=== PATIENT | female | born 1940 | race Caucasian/White ===

== ENCOUNTER 2016-04-27 21:09 | Emergency (ER) | payer OTHER ==
[~2016-04-27] VITALS: Ht 165.1 cm; Wt 88.5 kg
[~2016-04-27 21:09] MED LIST: BALANCE; BARLEY LIFE PO; CLX20 PO; DILT-113 PO; GYMNPOW PO; HYDC25 PO; HYDR-5688 PO; IBUP200C14 PO; LORA-741 PO; MULT-506 PO; NXM/40 PO; POTA10CA28 PO; PRMVC PV; PSYLLIUM PO; SIMV10TA2 PO; SNK PO; SOYBGRA9 PO; [UNRECOGNIZED DRUG - CODE] PO; [UNRECOGNIZED DRUG - OTHER]; [UNRECOGNIZED DRUG - OTHER] PO; [UNRECOGNIZED DRUG - OTHER] PO; [UNRECOGNIZED DRUG - OTHER] PO; [UNRECOGNIZED DRUG - OTHER] PO; [UNRECOGNIZED DRUG - OTHER] PO; [UNRECOGNIZED DRUG - OTHER] PO; [UNRECOGNIZED DRUG - OTHER] PO; [UNRECOGNIZED DRUG - OTHER] PO; [UNRECOGNIZED DRUG - OTHER] PO; [UNRECOGNIZED DRUG - OTHER] PO; [UNRECOGNIZED DRUG - OTHER] PO; [UNRECOGNIZED DRUG - OTHER] PO
[2016-04-27] MEDS ORDERED: ACETAMINOPHEN 500 MG TAB PO ONE (21:26)
[2016-04-27 21:28] VITALS: Ht 165.1 cm; Wt 88.5 kg
[2016-04-27] MEDS ORDERED: IBUPROFEN 800 MG TAB PO STA (22:21)
[2016-04-27] MEDS ORDERED: ALBUT/IPRATROP 3MG/0.5MG NEB 3 ML VIAL INH STA (22:25)
[2016-04-27] MEDS ORDERED: SODIUM CHLORIDE 0.9% 500ML 500 ML IV STA (22:25)
[2016-04-27] MEDS ORDERED: SODIUM CHLORIDE 0.9% 1000ML 1,000 ML IV STA (22:25)
[2016-04-27] MEDS ORDERED: IBUPROFEN 600 MG TAB ONE (22:27)
[2016-04-27] MEDS ORDERED: IBUPROFEN 200 MG TAB ONE (22:27)
--- NOTE | 2016-04-27 22:37 | DIAGNOSTIC IMAGING REPORT ---
CHEST ONE VIEW PORTABLE CLINICAL HISTORY: Sepsis CHEST AND BACK PAIN. FEVER. COMPARISON STUDY: 12/07/2015 FINDINGS: There is mild elevation right hemidiaphragm. The cardiac and mediastinal contours remain stable. There is interstitial thickening similar to the prior study. There is no lobar consolidation. There are no pleural effusions.[ IMPRESSION: Relatively stable interstitial thickening. No evidence of lobar consolidation. Mild elevation of the right hemidiaphragm. Electronically signed by: Art Obregon M.D. 04/27/2016 10:35 PM Dictated Date/Time: 04/27/2016 10:35 PM
[2016-04-27 22:48] LABS: BASO % 0.3 %; BASO ABS # 0.02 K/uL (0-0.2); COMPLETE YES; EOS % 1.2 %; HEMATOCRIT 38.6 % (37-47); IG% 0.3 %; LYMPH % 14.4 %; LYMPH ABS # 0.83 K/uL (1.2-3.4); MEAN CELL VOLUME 83.4 fL (80-100); MEAN CORPUSCULAR HEMOGLOBIN 28.5 pg (25-34); MEAN CORPUSCULAR HGB CONC 34.2 g/dl (32-36); MEAN PLATELET VOLUME 8.4 fL (7.4-10.4); MONO % 8.5 %; NEUT % 75.3 %; PLATELET COUNT 194 K/uL (130-400); RED BLOOD COUNT 4.63 M/uL (4.2-5.4); WHITE BLOOD COUNT 5.78 K/uL (4.8-10.8)
[2016-04-27 22:57] LABS: INR 1.2 (0.9-1.1); PROTHROMBIN TIME (PATIENT) 12.7 SECONDS (9.0-12.0)
[2016-04-27 23:06] LABS: ALT/SGPT 28 U/L (12-78); BLOOD UREA NITROGEN 14 mg/dl (7-18); BUN/CREATININE RATIO 20.7 (10-20); CALCIUM 8.4 mg/dl (8.5-10.1); CARBON DIOXIDE 25 mmol/L (21-32); CHLORIDE 100 mmol/L (98-107); CREATININE 0.67 mg/dl (0.60-1.20); GLUCOSE 90 mg/dl (70-99); MAGNESIUM 1.9 mg/dl (1.8-2.4); POTASSIUM 3.3 mmol/L (3.5-5.1); SODIUM 136 mmol/L (136-145)
[2016-04-27] MEDS ORDERED: POTASSIUM CHLORIDE 10 MEQ TABCR PO STA (23:10)
[2016-04-27 23:11] LABS: ALKALINE PHOSPHATASE 82 U/L (45-117); AST/SGOT 28 U/L (15-37)
[2016-04-27] MEDS ORDERED: CITA20TA9 PO (23:12)
[2016-04-27] MEDS ORDERED: HYDR25TA4 PO (23:14)
[2016-04-27] MEDS ORDERED: HYDR-5688 PO (23:16)
[2016-04-27] MEDS ORDERED: SENN-61 PO ×2 (23:17→23:18)
[2016-04-27] MEDS ORDERED: VERA120T15 PO (23:19)
[2016-04-27] MEDS ORDERED: BUSP15TA70 PO (23:20)
[2016-04-27 23:35] VITALS: TEMP 37.8
[2016-04-27 23:44] VITALS: O2SAT 94
--- NOTE | 2016-04-28 00:27 | EMERGENCY ROOM VISIT NOTE ---
ED Visit Note First contact with patient: 22:18 Patient was seen by our PA/TEAM PHYSICIAN. I was involved in the patient's care and did evaluate the patient myself. I was involved in the care throughout the ER stay. The patient presents with a flulike illness. She was febrile upon arrival. Chest x-ray does not show pneumonia. The patient is not hypoxic. Laboratory testing is pending, I suspect the patient will be discharged home if she continues to do well and her laboratory testing is reassuring.
[2016-04-28 00:47] LABS: URINE APPEARANCE CLOUDY (CLEAR); URINE BILIRUBIN NEG (NEG); URINE COLOR YELLOW; URINE EPITHELIAL CELL AUTO >30 /lpf (0-5); URINE NITRITE NEG (NEG); URINE SPECIFIC GRAVITY 1.028 (1.000-1.030); UROBILINOGEN NEG (NEG); ZZUR CULT IF INDIC CLEAN CATCH YES
[2016-04-28 00:49] LABS: MANUAL MICROSCOPIC REQUIRED? NO; REVIEW REQ? NO
[2016-04-28 02:17] LABS: INFLUENZA B PCR Neg for Influ B (NEG)
[2016-04-28 02:19] LABS: INFLUENZA A PCR POS for Influ A (NEG)
[2016-04-28] MEDS ORDERED: OSELTAMIVIR PHOSPHATE 75 MG CAP PO STA (02:31)
[2016-04-28] MEDS ORDERED: ALBUTEROL HFA 8 GM INHALER INH STA (02:31)
[2016-04-28] MEDS ORDERED: OSEL75CA12 PO (02:32)
[2016-04-28 02:50] VITALS: BP 114/64; PULSE 72; O2SAT 96
--- NOTE | 2016-04-28 06:30 | EMERGENCY ROOM VISIT NOTE ---
History First contact with patient: 22:18 Chief Complaint: FLU LIKE SX Stated Complaint: PAIN IN CHEST AND BACK, FEVER 103 History of Present Illness The patient is a 75 year old female who presents to the Emergency Room with complaints of cough, congestion, myalgias, arthralgias with fever and chills for the past day. Patient states she's been feeling sick for one day. No prior heart disease. No history of blood clots. She follows with Dr. Spence for her mitral valve prolapse. Patient states 20 years ago she received treatment for TB and has been clear since. Patient denies abdominal pain, neck stiffness, sore throat, earache, vomiting, diarrhea, leg pain or swelling. Patient had some mild chest discomfort with coughing. Review of Systems See HPI for pertinent positives & negatives. A total of 10 systems reviewed and were otherwise negative. Past Medical/Surgical History Surgical Problems: (1) History of knee replacement Anxiety, depression, hyperlipidemia, hypertension, mitral valve prolapse, sleep apnea, GERD, hysterectomy, tuberculosis Family History No pertinent family history Social History Smoking Status: Never Smoker Drug Use: none Marital Status: Housing Status: lives with family Occupation Status: employed Current/Historical Medications Scheduled Citalopram Hydrobromide (Celexa), 20 MG PO DAILY Esomeprazole Magnesium (Nexium), 40 MG PO DAILY Estrogens, Conjugated (Premarin), 0.625 MG PV UD Hydrochlorothiazide (Hctz), 25 MG PO DAILY Ibuprofen (Advil), 600 MG PO BID Multivitamin (Multivitamin), 1 TAB PO DAILY Oseltamivir (Tamiflu), 75 MG PO BID Potassium Chloride (Micro-K Ext Rel), 1 TAB PO 3XWK Senna (Senokot), 1 TAB PO DAILY Simvastatin (Zocor), 1 TAB PO HS Verapamil (Calan), 120 MG PO DAILY Scheduled PRN Buspirone Hcl (Buspar), 5 MG PO BID PRN for anxiety Hydrocodone/Acetaminophen 5MG/325MG ([place] 5MG/325MG), 1-2 TABLETS PO Q4 PRN for Pain Lorazepam (Ativan), 0.5 MG PO PRN PRN Allergies Coded Allergies: Amoxicillin (Unverified Allergy, Unknown, HIVES, 04/27/16) pt got hives with Amoxicillin and Dispermox Rifampin (Unverified Allergy, Unknown, HIVES, 04/27/16) Physical Exam Vital Signs Date Time Temp Pulse Resp B/P Pulse Ox O2 Delivery O2 Flow Rate FiO2 04/28/16 02:50 72 20 114/64 96 04/28/16 01:20 80 20 125/66 97 Room Air 04/27/16 23:44 94 Nasal Cannula 2.0 04/27/16 23:35 37.8 90 20 131/67 90 Room Air 04/27/16 22:20 87 04/27/16 22:20 92 Room Air 04/27/16 22:16 90 20 138/78 93 Room Air 04/27/16 21:28 39.0 107 20 147/77 93 Room Air Physical Exam VITALS: Vitals are noted on the nurse's note and reviewed by myself. Vital signs febrile GENERAL: Pleasant female mildly ill-appearing, in no acute distress, nondiaphoretic, well-developed well-nourished. SKIN: The skin was without rashes, erythema, edema, or bruising. There is no tenting of the skin. Capillary reflex less than 2 seconds. HEAD: Normocephalic atraumatic. EARS: External auditory canals clear, tympanic membranes pearly avelar without erythema or effusion bilaterally. EYES: Pupils equal round and reactive to light and accommodation. Conjunctivae without injection, sclerae without icterus. Extraocular movements intact. NOSE: Patent, turbinates without inflammation or discharge. No sinus tenderness. MOUTH: Mucous membranes mildly dry. Pharynx without erythema or exudate. Uvula midline. Airway patent. Tongue does not deviate. NECK: Supple without nuchal rigidity. No lymphadenopathy. No thyromegaly. Cervical spine is nontender. No JVD. HEART: Regular rate and rhythm LUNGS: Mild diffuse and x-ray wheeze without, rales or rhonchi. No dullness to percussion. No retractions or accessory muscle use. ABDOMEN: Positive bowel sounds x 4. Normal tympanic percussion. Soft, nontender, without masses or organomegaly. Starks sign negative. No guarding or rebound tenderness. CVA tenderness MUSCULOSKELETAL: No muscle atrophy, erythema, or edema noted. NEURO: Patient was alert and oriented to person place and time. Normal sensation to light and sharp touch. No focal neurological deficits. Medical Decision & Procedures Laboratory Results 04/27/16 22:20 Red Blood Count 4.63, Mean Corpuscular Volume 83.4, Mean Corpuscular Hemoglobin 28.5, Mean Corpuscular Hemoglobin Concent 34.2, Mean Platelet Volume 8.4, Neutrophils (%) (Auto) 75.3, Lymphocytes (%) (Auto) 14.4, Monocytes (%) (Auto) 8.5, Eosinophils (%) (Auto) 1.2, Basophils (%) (Auto) 0.3, Neutrophils # (Auto) 4.35, Lymphocytes # (Auto) 0.83, Monocytes # (Auto) 0.49, Eosinophils # (Auto) 0.07, Basophils # (Auto) 0.02 04/27/16 22:20 Test 04/27/16 22:20 04/27/16 23:44 04/28/16 00:10 White Blood Count 5.78 K/uL (4.8-10.8) Red Blood Count 4.63 M/uL (4.2-5.4) Hemoglobin 13.2 g/dL (12.0-16.0) Hematocrit 38.6 % (37-47) Mean Corpuscular Volume 83.4 fL (80-100) Mean Corpuscular Hemoglobin 28.5 pg (25-34) Mean Corpuscular Hemoglobin Concent 34.2 g/dl (32-36) Platelet Count 194 K/uL (130-400) Mean Platelet Volume 8.4 fL (7.4-10.4) Neutrophils (%) (Auto) 75.3 % Lymphocytes (%) (Auto) 14.4 % Monocytes (%) (Auto) 8.5 % Eosinophils (%) (Auto) 1.2 % Basophils (%) (Auto) 0.3 % Neutrophils # (Auto) 4.35 K/uL (1.4-6.5) Lymphocytes # (Auto) 0.83 K/uL (1.2-3.4) Monocytes # (Auto) 0.49 K/uL (0.11-0.59) Eosinophils # (Auto) 0.07 K/uL (0-0.5) Basophils # (Auto) 0.02 K/uL (0-0.2) RDW Standard Deviation 44.5 fL (36.4-46.3) RDW Coefficient of Variation 14.4 % (11.5-14.5) Immature Granulocyte % (Auto) 0.3 % Immature Granulocyte # (Auto) 0.02 K/uL (0.00-0.02) Prothrombin Time 12.7 SECONDS (9.0-12.0) Prothromb Time International Ratio 1.2 (0.9-1.1) Activated Partial Thromboplast Time 25.4 SECONDS (21.0-31.0) Partial Thromboplastin Ratio 1.0 Anion Gap 11.0 mmol/L (3-11) Est Creatinine Clear Calc Drug Dose 82.2 ml/min Estimated GFR () 101.1 Estimated GFR (Non- 87.2 BUN/Creatinine Ratio 20.7 (10-20) Calcium Level 8.4 mg/dl (8.5-10.1) Magnesium Level 1.9 mg/dl (1.8-2.4) Total Bilirubin 0.3 mg/dl (0.2-1) Aspartate Amino Transf (AST/SGOT) 28 U/L (15-37) Alanine Aminotransferase (ALT/SGPT) 28 U/L (12-78) Alkaline Phosphatase 82 U/L (45-117) Total Creatine Kinase 47 U/L (26-192) Creatine Kinase MB < 0.5 ng/ml (0.5-3.6) Creatine Kinase MB Ratio (0-3.0) Troponin I < 0.015 ng/ml (0-0.045) Total Protein 7.1 gm/dl (6.4-8.2) Albumin 3.5 gm/dl (3.4-5.0) Globulin 3.6 gm/dl (2.5-4.0) Albumin/Globulin Ratio 1.0 (0.9-2) Influenza Type A (RT-PCR) POS for Influ A (NEG) Influenza Type A Antigen Neg for Influ A (NEG) Influenza Type B Antigen Neg for Influ B (NEG) Influenza Type B (RT-PCR) Neg for Influ B (NEG) Bedside Lactic Acid Venous 0.52 mmol/L (0.90-1.70) Urine Color YELLOW Urine Appearance CLOUDY (CLEAR) Urine pH 6.0 (4.5-7.5) Urine Specific [place] 1.028 (1.000-1.030) Urine Protein NEG (NEG) Urine Glucose (UA) NEG (NEG) Urine Ketones 2+ (NEG) Urine Occult Blood NEG (NEG) Urine Nitrite NEG (NEG) Urine Bilirubin NEG (NEG) Urine Urobilinogen NEG (NEG) Urine Leukocyte Esterase MODERATE (NEG) Urine WBC (Auto) >30 /hpf (0-5) Urine RBC (Auto) 0-4 /hpf (0-4) Urine Hyaline Casts (Auto) 5-10 /lpf (0-5) Urine Epithelial Cells (Auto) >30 /lpf (0-5) Urine Bacteria (Auto) NEG (NEG) Medications Administered Medications (Trade) Dose Ordered Sig/Tong Route Start Time Stop Time Status Last Admin Dose Admin Acetaminophen 1000 mg 1,000 mg STK-MED ONCE PO 04/27/16 21:26 04/27/16 21:29 DC 04/27/16 21:26 1,000 MG Sodium Chloride (Nss 500ml) 500 ml @ 999 mls/hr Q31M STAT IV 04/27/16 22:25 04/27/16 22:55 DC 04/27/16 22:25 999 MLS/HR Albuterol/ Ipratropium (Duoneb) 3 ml NOW STAT INH 04/27/16 22:25 04/27/16 22:26 DC 04/27/16 22:30 3 ML Ibuprofen (Motrin Tab) 600 mg STK-MED ONCE .ROUTE 04/27/16 22:27 04/27/16 22:29 DC 04/27/16 22:31 600 MG Ibuprofen (Advil Tab) 200 mg STK-MED ONCE .ROUTE 04/27/16 22:27 04/27/16 22:29 DC 04/27/16 22:31 200 MG Potassium Chloride (Klor-Con M10) 20 meq NOW STAT PO 04/27/16 23:10 04/27/16 23:12 DC 04/27/16 23:10 20 MEQ Oseltamivir Phosphate (Tamiflu Cap) 75 mg NOW STAT PO 04/28/16 02:31 04/28/16 02:32 DC 04/28/16 02:31 75 MG Albuterol (Ventolin Hfa Inhaler) 2 puffs ONE STAT INH 04/28/16 02:31 04/28/16 02:32 DC 04/28/16 02:31 2 PUFFS ED Course Prior records/ancillary studies reviewed. Triage Nursing notes reviewed. Additional history obtained from family. The patient's history was concerning for fever. Differential diagnosis: Etiologies such as viral syndrome, otitis, pharyngitis, pneumonia, influenza, meningitis, urinary tract infection, sepsis, bacteremia, as well as others were entertained. Physical examination: as above ER treatment provided: APAP, IBU, NSS, tamiflu On reassessment the patient felt better. Diagnostics interpreted by me: ECG: Normal sinus, normal intervals, no acute ST-T wave changes, rate of 120. Impression sinus tachycardia interpreted by myself The labs revealed positive influenza A, negative troponin negative lactic acid Imaging studies: CLINICAL HISTORY: Sepsis CHEST AND BACK PAIN. FEVER. COMPARISON STUDY: 12/07/2015 FINDINGS: There is mild elevation right hemidiaphragm. The cardiac and mediastinal contours remain stable. There is interstitial thickening similar to the prior study. There is no lobar consolidation. There are no pleural effusions.[ IMPRESSION: Relatively stable interstitial thickening. No evidence of lobar consolidation. Mild elevation of the right hemidiaphragm. Electronically signed by: Art Obregon M.D. 04/27/2016 10:35 PM Dictated Date/Time: 04/27/2016 10:35 PM This appears to be consistent with flu A. patient felt much better after being medicated as above. She requested to leave. She started on Tamiflu as she has been symptomatic for less than 24 hours. She has multiple comorbidities. Patient was not hypoxic. She was speaking in full sentences. No pneumonia on x -ray. No signs of meningitis. She was advised to follow-up family care in a few days or here in the ER sooner for high fevers, lethargy, vomiting, worsening signs or symptoms or as needed. By the evaluation outlined above emergent etiologies such as otitis, pharyngitis, pneumonia, meningitis, urinary tract infection, sepsis, bacteremia, as well as others were deemed relatively unlikely. The pt informed about the findings as listed above. All questions were answered and pleased with the treatment. Return instructions were outlined and the patient was discharged in stable condition. Outpatient prescription management: tamiflu Referral: The patient was referred back to their primary care physician for follow-up in 2 to 3 days for a recheck of the current condition. Case reviewed with my attending Medical Decision as above Impression Primary Impression: Influenza A Departure Information Dispostion Home / Self-Care Condition GOOD Prescriptions Oseltamivir (Tamiflu) 75 Mg Cap 75 MG PO BID for 5 Days, #10 CAP Prov: Nicky Martínez .FRANTZ 04/28/16 Forms HOME CARE DOCUMENTATION FORM, IMPORTANT VISIT INFORMATION Patient Instructions Fever - [facility], My [facility], Rapid Influenza Antigen Nasal or Throat Swab Additional Instructions Tamiflu 75 m tablet twice a day for 5 days.Any medication can cause an allergic reaction, stop the pills immediately and return to the ER for rash, hives, breathing difficulties, or swelling. Acetaminophen(Tylenol) may be used for fever or pain. Use 1000mg every six hours as needed. Avoid using more than 3000mg in a 24 hour period. (AND/OR) Ibuprofen(Motrin, Advil) may be used for fever or pain. Use 600mg every six hours as needed. Take with food. Avoid using more than 2400mg in a 24 hour period. Do not use 2400mg per day for more than three consecutive days without physician direction. Prolonged inappropriate use can lead to stomach upset or ulcers. Afrin nasal spray: 2-3 sprays to each nostril twice daily as needed for congestion. Do not use for more than 3-4 days because it can lead to worsening rebound congestion. Pseudoephedrine(Sudaphed): 30-60mg every 6 hours as needed for nasal congestion. Do not take this with other stimulant products or supplements. Albuterol Inhaler: Take 2 puffs four times daily for seven days, then as needed. Rest and drink plenty of fluids. Controlling your fever with Tylenol and Ibuprofen as above will make you feel better. Wash your hands after nose blowing, sneezing, or coughing. Most germs are spread through contact, therefore improper hygiene may result in your close contacts and loved ones becoming ill just like you. Continue current medications. Return to the ER for severe headache, neck stiffness, chest pain, difficulty breathing, fevers, vomiting, worsening of your condition, or as needed. Follow up with your primary physician this week for a recheck of your current condition.
== END 2016-04-28 02:52 | disposition home or self-care (01) ==
LOC: C.EDB 21:10
DX: J11.1 Influenza due to unidentified influenza virus with other respiratory manifestations (principal); F41.9 Anxiety disorder, unspecified; F32.9 Major depressive disorder, single episode, unspecified; E78.5 Hyperlipidemia, unspecified; I10 Essential (primary) hypertension; Z79.899 Other long term (current) drug therapy; Z88.1 Allergy status to other antibiotic agents; Z90.710 Acquired absence of both cervix and uterus; Z96.659 Presence of unspecified artificial knee joint

== ENCOUNTER 2019-12-26 11:27 | Inpatient (IN) ==
--- NOTE | 2019-12-12 14:30 | PAT Medication Instructions ---
Medication Instructions Date of Service December 12, 2019 Home Medications buspirone 10 mg tablet 10 mg PO TID citalopram 20 mg tablet 20 mg PO QAM esomeprazole magnesium 40 mg capsule,delayed release 40 mg PO DAILY PRN hydrocodone 5 mg-acetaminophen 325 mg tablet 1 tab PO Q8H PRN potassium chloride 10 mEq capsule,extended release 10 meq PO 3XWK rosuvastatin 10 mg tablet 10 mg PO PM verapamil 120 mg 24 hr capsule,extended release 120 mg PO QAM Amino Sports 1 tab PO BID [id number] 1 cap PO QAM Barley Life 1 cap PO BID C Muscle Plus 1 cap PO BID C-[id number] [id number] [Immune Support Complex] 2 tab PO QAM Colergestaid 1 dose PO TID Di-Vitelometry 1 dose PO QAM E-Mulsive V 200 mg PO 2XWK Ophir-Zyme 1 tab PO TID Lymph Drainage 10 drp PO QAM Nattokinase Plus 1 cap PO QAM Osteo B Plus 1 cap PO BID Prevagen 1 dose PO 3XWK Restore Plus Ad 1 dose PO QAM Serrapectate 1 dose PO BID Soy Lecithin 1,200 mg PO QAM Cymro Black Radish 1 tab PO BID coenzyme Q10 [Co Q-10] 200 mg PO QAM elderberry fruit [Elderberry] 400 mg PO QAM famotidine 20 mg PO DAILY PRN qrnsauwz-arclb-zjskm-CF borate [Move Free Joint Health] 1 tab PO BID lactobacillus combination no.4 [Probiotic] 3,000 mmu cells PO 3XWK lysine [L-Lysine] 500 mg PO 2XWK moexipril [Univasc] 7.5 mg PO BID turmeric 400 mg PO QAM STOP taking 2 weeks before surgery (or as soon as possible if surgery is within 2 weeks) Amino Sports 1 tab PO BID [id number] 1 cap PO QAM Barley Life 1 cap PO BID C Muscle Plus 1 cap PO BID C-Zn-K.ginseng-yakelin [id number] [Immune Support Complex] 2 tab PO QAM Colergestaid 1 dose PO TID Di-Vitelometry 1 dose PO QAM E-Mulsive V 200 mg PO 2XWK Ophir-Zyme 1 tab PO TID Lymph Drainage 10 drp PO QAM Nattokinase Plus 1 cap PO QAM Osteo B Plus 1 cap PO BID Prevagen 1 dose PO 3XWK Restore Plus Ad 1 dose PO QAM Serrapectate 1 dose PO BID Soy Lecithin 1,200 mg PO QAM Cymro Black Radish 1 tab PO BID coenzyme Q10 [Co Q-10] 200 mg PO QAM elderberry fruit [Elderberry] 400 mg PO QAM pacwzygl-gaohm-nhhet-CF borate [Move Free Joint Health] 1 tab PO BID lysine [L-Lysine] 500 mg PO 2XWK turmeric 400 mg PO QAM DO NOT take the morning of surgery potassium chloride 10 mEq capsule,extended release 10 meq PO 3XWK famotidine 20 mg PO DAILY PRN lactobacillus combination no.4 [Probiotic] 3,000 mmu cells PO 3XWK moexipril [Univasc] 7.5 mg PO BID Take morning of surgery With a small sip of water, OTHERWISE NOTHING TO EAT OR DRINK AFTER MIDNIGHT: buspirone 10 mg tablet 10 mg PO TID citalopram 20 mg tablet 20 mg PO QAM esomeprazole magnesium 40 mg capsule,delayed release 40 mg PO DAILY PRN (if needed) hydrocodone 5 mg-acetaminophen 325 mg tablet 1 tab PO Q8H PRN (okay to take up to 4 hours prior to surgery if needed) verapamil 120 mg 24 hr capsule,extended release 120 mg PO QAM Take evening before surgery buspirone 10 mg tablet 10 mg PO TID esomeprazole magnesium 40 mg capsule,delayed release 40 mg PO DAILY PRN (if needed) hydrocodone 5 mg-acetaminophen 325 mg tablet 1 tab PO Q8H PRN (if needed) rosuvastatin 10 mg tablet 10 mg PO PM moexipril [Univasc] 7.5 mg PO BID Other Notes If you have any questions please call us at [phone] or [phone] or [phone] or [phone]
--- NOTE | 2019-12-17 10:48 | Anesthesiology Consultation ---
Date of Service December 17, 2019 Assessment & Plan (1) Encounter for pre-operative examination: - Per assessment on 12/16: Travel screen negative. No known COVID-19 positive contacts or current COVID-19 related symptoms. Chronic, intermittent cough x years (unchanged)- lung biopsy for evaluation of this 04/2018 revealed lung "scar tissue" consistent with hypersensitivity pneumonitis. Follows with S pulmonary. Surgeon arranging preop COVID testing (scheduled 12/21; [place]). Awaiting results. - Cardiology office visit: 08/21/19: "Longstanding hypertension with hypertensive heart disease, chronic stage 2 diastolic dysfunction.. Peripheral edema has improved, no longer taking prescription diuretic but using herbal supplement. Weight trending slightly downward.. With hypertensive heart disease, diastolic dysfunction well managed on current medical regimen. No worsening dyspnea or ed lloyd overall status clinically stable.. PLAN: No changes made medical regimen." - Pulmonary office visit: 10/23/19: "Biopsy most c/w HP Less likely possibilities are autoimmune or drug toxicity.. S/p collegen vascular work up-negative.. PFT stable in May 2018. November 2018, Repeat today with slightly decline. Clinical symptoms are stable. Patient prefers to monitor and repeat PFT in 3 months. Patient prefers no prednisone treatment if possible.. Walk testing showing desaturation to 89% but patient declines O2.. Obstructive sleep apnea syndrome.. Moderate VANESSA.. Therapeutic and compliant.. Nocturnal hypoxemia.. Corrected on cpap titration with pressure of 5 cm H20." Preop CXR noting chronic interstitial lung disease favors chronic fibrotic change with 6mm nodular density. Awaiting pulmonary response ([facility]). Chart Review Chart Review: Patient seen in Pre Admission Testing Teaching & Discussion Pre-Anesthesia Teaching/Discussion Notes: Instructed NPO after midnight before surgery,except medications with 15 cc of water. Medication instructions provided according to the PAT guidelines. History Surgery Operation Date: 12/26/19 13:40 Proposed Procedures p Left Reverse Total Shoulder Arthroplasty - Isaac Peña DO Height/Weight Height: 5 ft 4 in Weight: 88 kg Allergies Allergy/AdvReac Type Severity Reaction Status Date / Time amoxicillin Allergy Unknown Hives Verified 12/17/19 11:32 rifampin Allergy Unknown Hives Verified 12/17/19 11:32 Medications Home Medications Medication Instructions Recorded Confirmed Last Taken buspirone 10 mg tablet 10 mg PO TID 12/10/19 12/12/19 Unknown citalopram 20 mg tablet 20 mg PO QAM 12/10/19 12/12/19 Unknown esomeprazole magnesium 40 mg 40 mg PO DAILY PRN 12/10/19 12/12/19 Unknown capsule,delayed release hydrocodone 5 mg-acetaminophen 325 1 tab PO Q8H PRN 12/10/19 12/12/19 Unknown mg tablet potassium chloride 10 mEq 10 meq PO 3XWK 12/10/19 12/12/19 Unknown capsule,extended release rosuvastatin 10 mg tablet 10 mg PO PM 12/10/19 12/12/19 Unknown verapamil 120 mg 24 hr 120 mg PO QAM 12/10/19 12/12/19 Unknown capsule,extended release Amino Sports 1 tab PO BID 12/12/19 12/12/19 Unknown [id number] 1 cap PO QAM 12/12/19 12/12/19 Unknown Barley Life 1 cap PO BID 12/12/19 12/12/19 Unknown C Muscle Plus 1 cap PO BID 12/12/19 12/12/19 Unknown C-Zn-K.ginseng-yakelin hips-hrb62 2 tab PO QAM 12/12/19 12/12/19 Unknown [Immune Support Complex] Colergestaid 1 dose PO TID 12/12/19 12/12/19 Unknown Di-Vitelometry 1 dose PO QAM 12/12/19 12/12/19 Unknown E-Mulsive V 200 mg PO 2XWK 12/12/19 12/12/19 Unknown [place]-Zyme 1 tab PO TID 12/12/19 12/12/19 Unknown Lymph Drainage 10 drp PO QAM 12/12/19 12/12/19 Unknown Nattokinase Plus 1 cap PO QAM 12/12/19 12/12/19 Unknown Osteo B Plus 1 cap PO BID 12/12/19 12/12/19 Unknown Prevagen 1 dose PO 3XWK 12/12/19 12/12/19 Unknown Restore Plus Ad 1 dose PO QAM 12/12/19 12/12/19 Unknown Serrapectate 1 dose PO BID 12/12/19 12/12/19 Unknown Soy Lecithin 1,200 mg PO QAM 12/12/19 12/12/19 Unknown French Black Radish 1 tab PO BID 12/12/19 12/12/19 Unknown coenzyme Q10 [Co Q-10] 200 mg PO QAM 12/12/19 12/12/19 Unknown elderberry fruit [Elderberry] 400 mg PO QAM 12/12/19 12/12/19 Unknown famotidine 20 mg PO DAILY PRN 12/12/19 12/12/19 Unknown uswadynw-bzden-nncos-CF borate 1 tab PO BID 12/12/19 12/12/19 Unknown [Move Free Joint Health] lactobacillus combination no.4 3,000 mmu cells PO 3XWK 12/12/19 12/12/19 Unknown [Probiotic] lysine [L-Lysine] 500 mg PO 2XWK 12/12/19 12/12/19 Unknown moexipril [Univasc] 7.5 mg PO BID 12/12/19 12/12/19 Unknown turmeric 400 mg PO QAM 12/12/19 12/12/19 Unknown Past Medical History Medical History (Updated 12/17/19 @ 11:28 by Sarah Wallace) CAD (coronary artery disease) non-obstructive Depression GERD (gastroesophageal reflux disease) controlled HTN (hypertension) Hypersensitivity pneumonitis biopsy 04/2018 consistent with HP MVP (mitral valve prolapse) Focal calcification of the posterior mitral valve leaflet, Mild MR per 2018 echo Osteoarthritis Presence of pessary Sleep apnea CPAP Urinary frequency Exercise / Class Metabolic Activity III < 4 Walking/Shop/Light housework Past Family History Family History Sister Diabetes Past Surgical History Surgical History (Updated 12/17/19 @ 11:26 by Sarah Wallace) History of cardiac cath X2 (most recent 2011), no stents History of colonoscopy History of esophagogastroduodenoscopy (EGD) History of lung biopsy 04/2018 (showed scar tissue/hypersensitivity pneumonitis) History of repair of rotator cuff right History of tooth extraction History of total knee replacement R/L S/P arthroscopy of left shoulder X2 Past Anesthesia History No Hx of Anesthesia Complications and No Family Hx of Anesthesia Complications History of PONV No Hx of PONV and Hx of Motion Sickness (occsasional) Social History Smoking Status: Never smoker Do You Dip or Chew Tobacco: No Hx Alcohol Use: No Hx Substance Use: No substance use type: does not use Review of Systems Chronic, intermittent cough x years (unchanged). Patient denies chest pain, shortness of breath, fever, chills, wheezing, palpitations. Physical Exam Vital Signs VITALS BP 118/74 P 75 TEMP 98.0 SP02 96%RA RESP 18 PHYSICAL Full neck and c-spine range of motion. Full TMJ range of motion. TMD 3.5 finger breaths Mallampati Score 2 Dentition: full dentures upper Lungs: clear throughout to auscultation Cardiac: regular rate and rhythm, no murmurs noted Spine: normal Carotid arteries: negative bruit Extremities: no edema Testing Laboratory Results 12/17/19 11:18 12/17/19 11:18 PT 11.9 Seconds (9.0-12.0) 12/17/19 11:18 INR 1.1 (0.9-1.1) 12/17/19 11:18 APTT 26.8 Seconds (21.0-31.0) 12/17/19 11:18 Blood Type A Negative 12/17/19 11:18 Antibody Screen NEGATIVE 12/17/19 11:18 Electrocardiogram Date: 09/17/19 NSR at 69bpm. LAD. Septal infarct (no significant change compared to 02/27/19 per liner roll changer review). Chest X-Ray Date: 12/17/19 Low lung volumes with chronic interstitial thickening. This favors chronic fibr otic change. Possible 6 mm nodular density within the peripheral left midlung zone. Repeat chest x-ray with shallow oblique views or follow-up chest CT recommended for further evaluation. Echocardiogram Date: 04/13/17 EF 60-65%. No RWMA. Mild cLVH. Mild AV sclerosis. Mild mitral annular calcification. Focal calcification of the posterior mitral valve leaflet. Mild MR. Grade I DD.
[2019-12-17 11:41] LABS: Basophils # (auto) 0.03 K/uL (0-0.2); Basophils % (auto) 0.4 %; Eosinophils # (auto) 0.26 K/uL (0-0.5); Eosinophils % (auto) 3.7 %; Hematocrit (blood only) 41.8 % (37-47); Hemoglobin 13.7 g/dL (12.0-16.0); Immature Granulocytes # (auto) 0.01 K/uL (0.00-0.02); Immature Granulocytes % (auto) 0.1 %; Lymphocytes # (auto) 1.73 K/uL (1.2-3.4); Lymphocytes % (auto) 24.8 %; Mean Corpuscular Hemoglobin 28.8 pg (25-34); Mean Corpuscular Hgb Conc 32.8 g/dL (32-36); Mean Platelet Volume 8.8 fL (7.4-10.4); Monocytes # (auto) 0.62 K/uL (0.11-0.59); Monocytes % (auto) 8.9 %; Neutrophils # (auto) 4.33 K/uL (1.4-6.5); Neutrophils % (auto) 62.1 %; Platelet Count 233 K/uL (130-400); RDW Coefficient of Variation 13.6 % (11.5-14.5); RDW Standard Deviation 44.3 fL (36.4-46.3); Red Blood Count 4.75 M/uL (4.2-5.4); White Blood Count 6.98 K/uL (4.8-10.8)
[2019-12-17 11:52] LABS: INR 1.1 (0.9-1.1); Partial Thromboplastin Time 26.8 Seconds (21.0-31.0); Prothrombin Time 11.9 Seconds (9.0-12.0)
[2019-12-17 12:03] LABS: BUN Creatinine Ratio 20.2 (10-20); Calcium 9.1 mg/dl (8.5-10.1); Creatinine Clr Calc Pharmacy 79.1 ml/min; Est GFR (Non-African American) 86.2; Potassium 4.3 mmol/L (3.5-5.1)
--- NOTE | 2019-12-17 12:11 | XRay Report ---
XR chest Pre-admission PA/Lat HISTORY: Preop. COMPARISON: Chest 04/27/2016. FINDINGS: There are low lung volumes. Mild diffuse interstitial thickening, unchanged. This is most p ronounced within the mid to lower lung zones and favors chronic fibrotic change. No new focal lung co nsolidations to suggest pneumonia. No evidence for pulmonary edema. Stable calcified granuloma within the left lower lobe. Small nodular density within the left midlung zone which measures 6 mm. The hea rt remains top normal in size. Mild elevation the right hemidiaphragm persists. IMPRESSION: 1. Low lung volumes with chronic interstitial thickening. This favors chronic fibrotic change. 2. Possible 6 mm nodular density within the peripheral left midlung zone. Repeat chest x-ray with sha llow oblique views or follow-up chest CT recommended for further evaluation. 3. These findings were called/faxed to referring physician following dictation. ACT 112: Positive. There are findings on this exam that require communication between the performing entity and the patient following Patient Test Result Information Act ([place] Act 112) guidelines. Electronically signed by: Catrachito Bermudez M.D. 12/17/2019 12:10 PM
--- NOTE | 2019-12-25 15:59 | History & Physical Report ---
Date of Service December 25, 2019 Assessment & Plan (1) Rotator cuff arthropathy of left shoulder: We will proceed with a left reverse shoulder arthroplasty. Postoperatively she will be placed in a sling and kept overnight in the hospital for postoperative medical management. She is undecided on outpatient physical therapy at this time. Present on Admission?: Yes History of Present Illness Chief Complaint: Rotator cuff arthropathy of the left shoulder Primary Care Provider: Jessika Corea DO Randa is a pleasant 79-year-old female whose been dealing with a long history of left shoulder pain. She had to previous rotator cuff repairs done about 10 to 15 years ago. Unfortunately she continued to have pain in her shoulder. X-rays and clinical examination have been diagnostic for rotator cuff arthropathy of the left shoulder. After failing extensive conservative treatment, she has elected to proceed with a left reverse shoulder arthroplasty. Allergies Allergy/AdvReac Type Severity Reaction Status Date / Time amoxicillin Allergy Unknown Hives Verified 12/17/19 11:32 rifampin Allergy Unknown Hives Verified 12/17/19 11:32 Home Medications Home Medications Medication Instructions Recorded Confirmed Type buspirone 10 mg tablet 10 mg PO TID 12/10/19 12/12/19 History citalopram 20 mg tablet 20 mg PO QAM 12/10/19 12/12/19 History esomeprazole magnesium 40 mg 40 mg PO DAILY PRN 12/10/19 12/12/19 History capsule,delayed release hydrocodone 5 mg-acetaminophen 325 1 tab PO Q8H PRN 12/10/19 12/12/19 History mg tablet potassium chloride 10 mEq 10 meq PO 3XWK 12/10/19 12/12/19 History capsule,extended release rosuvastatin 10 mg tablet 10 mg PO PM 12/10/19 12/12/19 History verapamil 120 mg 24 hr 120 mg PO QAM 12/10/19 12/12/19 History capsule,extended release Amino Sports 1 tab PO BID 12/12/19 12/12/19 History [id number] 1 cap PO QAM 12/12/19 12/12/19 History Barley Life 1 cap PO BID 12/12/19 12/12/19 History C Muscle Plus 1 cap PO BID 12/12/19 12/12/19 History C-Zn-K.ginseng-yakelin hips-hrb62 2 tab PO QAM 12/12/19 12/12/19 History [Immune Support Complex] Colergestaid 1 dose PO TID 12/12/19 12/12/19 History Di-Vitelometry 1 dose PO QAM 12/12/19 12/12/19 History E-Mulsive V 200 mg PO 2XWK 12/12/19 12/12/19 History Distant-Zyme 1 tab PO TID 12/12/19 12/12/19 History Lymph Drainage 10 drp PO QAM 12/12/19 12/12/19 History Nattokinase Plus 1 cap PO QAM 12/12/19 12/12/19 History Osteo B Plus 1 cap PO BID 12/12/19 12/12/19 History Prevagen 1 dose PO 3XWK 12/12/19 12/12/19 History Restore Plus Ad 1 dose PO QAM 12/12/19 12/12/19 History Serrapectate 1 dose PO BID 12/12/19 12/12/19 History Soy Lecithin 1,200 mg PO QAM 12/12/19 12/12/19 History [place] Black Radish 1 tab PO BID 12/12/19 12/12/19 History coenzyme Q10 [Co Q-10] 200 mg PO QAM 12/12/19 12/12/19 History elderberry fruit [Elderberry] 400 mg PO QAM 12/12/19 12/12/19 History famotidine 20 mg PO DAILY PRN 12/12/19 12/12/19 History wvkyfxpf-vjvkw-fuwsc-CF borate 1 tab PO BID 12/12/19 12/12/19 History [Move Free Joint Health] lactobacillus combination no.4 3,000 mmu cells PO 3XWK 12/12/19 12/12/19 History [Probiotic] lysine [L-Lysine] 500 mg PO 2XWK 12/12/19 12/12/19 History moexipril [Univasc] 7.5 mg PO BID 12/12/19 12/12/19 History turmeric 400 mg PO QAM 12/12/19 12/12/19 History Past Med/Surg History Medical History CAD (coronary artery disease) non-obstructive Depression GERD (gastroesophageal reflux disease) controlled HTN (hypertension) Hypersensitivity pneumonitis biopsy 04/2018 consistent with HP MVP (mitral valve prolapse) Focal calcification of the posterior mitral valve leaflet, Mild MR per 2018 echo Osteoarthritis Presence of pessary Sleep apnea CPAP Urinary frequency Surgical History History of cardiac cath X2 (most recent 2011), no stents History of colonoscopy History of esophagogastroduodenoscopy (EGD) History of lung biopsy 04/2018 (showed scar tissue/hypersensitivity pneumonitis) History of repair of rotator cuff right History of tooth extraction History of total knee replacement R/L S/P arthroscopy of left shoulder X2 Family History Sister Diabetes Social History Smoking Status: Never smoker Second Hand Exposure: Yes; Do You Dip or Chew Tobacco: No; Tobacco Cessation Education Requested by Patient: No Hx Alcohol Use: No Hx Substance Use: No Preferred Language: Maori Communication Ability: Effective 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 Beliefs That Will Affect Care: None and Orthodox Orthodox Beliefs: WANTS MANAGEMENT [employer]ESSIONALS FOR LAST RITES IF NEEDED Current Living Situation: Spouse Other Information That Helps Us Care for You: No Feels Safe at Home: Yes Safety Concerns: Feels Safe At This Time Assistive Devices: Cane, Denture - Upper and Glasses Review of Systems Review of Systems: All systems reviewed & are unremarkable except as noted in HPI & below Physical Exam Constitutional: WD/WN, vitals as above Eyes: PERRL, conjunctivae normal, anicteric sclerae ENMT: external ear and nose normal, oropharynx normal Neck: trachea midline, no thyromegaly Respiratory: normal respiratory effort Cardiovascular: RRR, no murmur, no edema Gastrointestinal (Abdomen): normal bowel sounds, soft, nontender, no hepatosplenomegaly Musculoskeletal: Physical examination of the left shoulder reveals decreased range of motion and significant weakness. There is tenderness palpation along the anterior glenohumeral joint line. The right upper extremity is neurovascularly intact. Psychiatric: A+Ox3, euthymic affect Results & Data Results & Data ([facility]) Diagnostic Findings Radiographs of the left shoulder show some signs of osteoarthritis with blunting of the greater tuberosity and some superior migration of the humeral head on the glenoid. PG Care Time/CCT Total # of Minutes Spent Total Time Spent with Patient: Total time spent is greater than 50% in coordination of care (as documented) at patient's floor/unit and/or counseling patient: Coding Level of Care Code None Diagnoses Rotator cuff arthropathy of left shoulder M12.812
--- NOTE | 2019-12-26 11:15 | History & Physical Bridge Note ---
Date of Service December 26, 2019 History & Physical Bridge Note I have examined the patient, reviewed the History & Physical and in the interval since the performance of the History & Physical I have noted the following changes of clinical significance: no changes noted
[~2019-12-26 11:27] MED LIST changes: +ACETAMINOPHEN 500 MG TAB PO SCH; -BALANCE; -BARLEY LIFE PO; +BUPIVACAINE 0.5 % 5 MG/1 ML PF 10ML VIAL ONE; -CLX20 PO; +DEXAMETHASONE SOD INJ 4 MG/ML VIAL ONE; -DILT-113 PO; +FAMOTIDINE 20 MG TAB PO SCH; +GABAPENTIN 300 MG CAP PO SCH; +GLYCOPYRROLATE 0.2 MG/ML VIAL ONE; -GYMNPOW PO; -HYDC25 PO; -HYDR-5688 PO; -IBUP200C14 PO; +LACTATED RINGER'S 1,000 ML IV SCH; +LIDOCAINE HCL 2% 2 ML VIAL/AMP(20MG/ML) INFIL ONE; -LORA-741 PO; +LR 60ML/HR IV SCH; +MIDAZOLAM HCL 1 MG/ML 2ML VIAL ONE; -MULT-506 PO; +NEOSTIGMINE METHYLSULFATE 5 MG/5 ML SYR ONE; -NXM/40 PO; +ONDANSETRON INJ 2 MG/ML 2 ML VIAL ONE; -POTA10CA28 PO; -PRMVC PV; +PROPOFOL IV EMULSION 10 MG/ML 20 ML VIAL IV ONE; -PSYLLIUM PO; +ROCURONIUM BROMIDE 10 MG/ML 5 ML VIAL IV ONE; +ROPIVACAINE 0.5% HCL/PF 150 MG, BUPIVACAINE 0.5% MPF 30 ML, EPINEPHrine 30MG/30ML (OR U... INFIL SCH; -SIMV10TA2 PO; -SNK PO; -SOYBGRA9 PO; +SUCCINYLCHOLINE CHLORIDE 20 MG/ML 10 ML VIAL IV ONE; +TRANEXAMIC ACID 1,000 MG **IV Intra-op IV SCH; +TRANEXAMIC ACID 1,000 MG **IV Pre-op IV SCH; -[UNRECOGNIZED DRUG - CODE] PO; -[UNRECOGNIZED DRUG - OTHER]; -[UNRECOGNIZED DRUG - OTHER] PO; -[UNRECOGNIZED DRUG - OTHER] PO; -[UNRECOGNIZED DRUG - OTHER] PO; -[UNRECOGNIZED DRUG - OTHER] PO; -[UNRECOGNIZED DRUG - OTHER] PO; -[UNRECOGNIZED DRUG - OTHER] PO; -[UNRECOGNIZED DRUG - OTHER] PO; -[UNRECOGNIZED DRUG - OTHER] PO; -[UNRECOGNIZED DRUG - OTHER] PO; -[UNRECOGNIZED DRUG - OTHER] PO; -[UNRECOGNIZED DRUG - OTHER] PO; -[UNRECOGNIZED DRUG - OTHER] PO; +[UNRECOGNIZED DRUG - REMARK] SCH; +ceFAZolin 2000MG 2,000 MG/15 ML SYR IV SCH; +dexAMETHasone 4 MG TAB PO SCH
[2019-12-26] MEDS ORDERED: ORTHO JOINT ANESTHETIC ONE (12:06)
[2019-12-26] MEDS ORDERED: ONDANSETRON INJ 2 MG/ML 2 ML VIAL IV PRN ×2 (12:33→15:51)
[2019-12-26] MEDS ORDERED: ATROPINE SULFATE 0.1 MG/ML 10ML SYR IV PRN (12:33)
[2019-12-26] MEDS ORDERED: ePHEDrine sulfate 50 MG/ML AMP IV PRN (12:33)
[2019-12-26] MEDS ORDERED: fentaNYL citrate 100 MCG/2 ML VIAL IV PRN (12:33)
--- NOTE | 2019-12-26 14:32 | Operative Report ---
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 Unfortunately she continued to have shoulder pain. She came to my office with limited motion and pain of her shoulder. X-rays and clinical examination were diagnostic for cuff arthropathy of the left shoulder. After failing conservative treatment, she elected proceed with a left reverse shoulder arthroplasty. Description of Procedure A CPT code modifier 59: The long head of the biceps tendon was enlarged and inflamed consistent with tendinopathy. A tenodesis was opted. This was a separate and distinct portion of the procedure. For these reasons, a CPT code modifier 59 will be added to this case. Implants used: I used a Biomet Comprehensive reverse total shoulder arthroplasty system with a size 11 press fit micro humeral stem, a +6 humeral tray and a standard humeral bearing, a 25 mm small augment baseplate with a 6.5 mm central screw and superior and inferior locking screws, and a size 40 mm eccentric glenosphere. Randa arrived at [facility] for the above procedure. She was seen in the preoperative holding area and the operative extremity was identified and signed. She was given a preoperative antibiotic, TXA, and an interscalene nerve block. She was taken back to the operating room, laid on table in supine position, and put under general anesthesia. She was then put into the beachchair position. The shoulder was then prepped and draped in sterile fashion. A timeout was done and the patient and the operative extremity was p edmar identified. A deltopectoral approach was used. Dissection was taken down through the fascia and the deltoid was retracted laterally and the conjoined tendon was retracted medially. The anterior shoulder was exposed. The biceps groove was opened up and the biceps tendon was examined extensively. The biceps tendon demonstrated enlargement and inflammatory changes consistent with longstanding inflammation in the context of osteoarthritis and cuff arthropathy. The long head of the biceps tendon was then tenodesed to the upper border of the pectoralis major. This was a separate and distinct portion of the procedure. The subscapularis was then directly released off the lesser tuberosity with a peel technique. The inferior capsule was released and the humeral head was dislocated. A canal finding reamer was sent down the center of the humeral canal. Sequential reaming up to a size 11 reamer was done. Off that reamer, a proximal humeral resection guide was placed. The proximal humerus was resected at 135 of inclination and 25 of retroversion. Osteophytes were then removed and the glenoid was exposed. Time was spent doing a complete capsular and labral release. The glenoid guide was then placed in the inferior aspect of the glenoid. A 3.2 mm Steinmann pin was then placed into the glenoid vault at 10 of inclination. The glenoid baseplate was then reamed. The final size 25 mm small augment baseplate was then impacted in the place. A 6.5 mm central screw was then placed followed by superior and inferior locking screws. A 40 mm eccentric glenosphere was then impacted into place. Surrounding soft tissues were then injected with 100 cc an orthopedic pain control cocktail. The proximal humerus was then exposed. Sequential broaching of the humerus up to a size 9 broach was done. Off that broach a +6 humeral tray was trialed. The shoulder was then reduced, brought through a full range of motion, and felt to be stable. The shoulder was then dislocated and the broach was removed. A size 9 implant was then placed in the humeral shaft. Unfortunately this implant was very loose. Due to the previous suture anchors from the previous repair it was difficult to get a good press-fit. I then decided to broach up to a size 11 broach. The final size 11 micro press-fit humeral stem was then impacted into place. A standard humeral bearing was then snapped onto a +6 humeral tray. The humeral tray was then impacted onto the humeral stem. The shoulder was once again reduced, brought through a full range of motion, and felt to be stable. The benitez bscapularis was then tenodesed back to the lesser tuberosity with transosseous FiberWire sutures and side to side sutures with the arm in 45 of external rotation. A dilute betadyne lavage was then done for 3 minutes. The joint was then irrigated with normal saline solution. Hemostasis was obtained. The interval was closed with 2-0 Vicryl suture. The skin was then closed with 2-0 Vicryl and parveen. A Silverlon dressing was placed and the arm was rested in a regular arm sling. She was then extubated and transferred to a hospital bed. She taken to the postanesthesia care unit in stable condition. She tolerated the procedure well. Isaac Contreras PA-C, was present for the entire procedure. He was critical for patient positioning, prepping, draping, retraction exposure, wound closure and application of sterile dressing. I attest to the content of the Intraoperative Record and any orders documented therein. Any exceptions are noted below.
--- NOTE | 2019-12-26 15:09 | Anesthesiology Progress Note ---
Date of Service December 26, 2019 Anesthesia Post Procedure Vital Signs Vital Signs: Temp Pulse Pulse Resp BP Pulse Ox 12/26/19 14:55 69 17 131/72 100 12/26/19 14:46 36.2 C L 75 20 147/76 H 100 12/26/19 11:46 36.6 C 77 18 144/81 H 94 Pain Intensity Left Shoulder: Pain Intensity: 3 Transfer of Care Handoff Completed per policy Notes Mental Status: alert / awake / arousable and participated in evaluation Patient Amnestic to Procedure: Yes Nausea / Vomiting: adequately controlled Pain: adequately controlled Airway Patency, RR, SpO2: stable & adequate BP & HR: stable & adequate Hydration State: stable & adequate Anesthetic Complications: no major complications apparent and Pt Satisfied with anesthetic care
--- NOTE | 2019-12-26 15:15 | XRay Report ---
XR shoulder LT min 2V routine CLINICAL HISTORY: Post shoulder surgery COMPARISON: 12/07/2015 DISCUSSION: There are postsurgical changes of a reverse total left shoulder arthroplasty. There is no dislocation. There are overlying skin parveen. There is gas present within the soft tissues consiste nt with recent surgery. The heart is enlarged with vascular prominence. IMPRESSION: Postsurgical changes of a reverse total left shoulder arthroplasty. No evidence of disloc ation. ACT 112: Negative or not required by law. Electronically signed by: Art Obregon M.D. 12/26/2019 3:14 PM
[2019-12-26] MEDS ORDERED: oxyCODONE HCL IR 5 MG TAB (IMMEDIATE RELEASE) PO PRN (15:51)
[2019-12-26] MEDS ORDERED: PANTOprazole 40 MG TAB PO PRN (15:51)
[2019-12-26] MEDS ORDERED: bisacodyL 10 MG SUPP PR PRN (15:51)
[2019-12-26] MEDS ORDERED: HYDROmorphone INJ 0.5 MG/0.5 ML SYR IV PRN (15:51)
[2019-12-26] MEDS ORDERED: MAGNESIUM HYDROXIDE SUSP 30 ML UDC PO PRN (15:51)
[2019-12-26] MEDS ORDERED: FAMOTIDINE 20 MG TAB PO PRN (15:51)
[2019-12-26] MEDS ORDERED: NALOXONE HCL 0.4 MG/1 ML VIAL/CARP IV PRN (15:51)
[2019-12-26] MEDS ORDERED: METOCLOPRAMIDE HCL INJ 5 MG/ML 2 ML VIAL IV PRN (15:51)
[2019-12-26] MEDS ORDERED: NON-FORMULARY MEDICATION (Prevagen 1 EA) PO SCH (15:51)
[2019-12-26] MEDS: SODIUM CHLORIDE 0.9% 1000ML 1,000 ML IV SCH (18:11)
[2019-12-26] MEDS: KETOROLAC TROMETHAMINE 15 MG/ML VIAL IV SCH ×2 (18:12→21:36)
[2019-12-26] MEDS: DOCUSATE SODIUM 100 MG CAP PO SCH (20:57)
[2019-12-26] MEDS: busPIRone 5 MG TAB PO SCH (20:57)
[2019-12-26] MEDS: ENALAPRIL MALEATE 10 MG TAB PO SCH (20:58)
[2019-12-26] MEDS ORDERED: [UNRECOGNIZED DRUG - OTHER] PO SCH (21:00)
[2019-12-26] MEDS ORDERED: ROSUVASTATIN CALCIUM 10 MG TAB PO SCH (21:00)
[2019-12-26] MEDS ORDERED: SENNA 8.6 MG TAB PO SCH (21:00)
[2019-12-26] MEDS: ACETAMINOPHEN 500 MG TAB PO SCH (21:02)
[2019-12-26] MEDS: ceFAZolin 2000MG 2,000 MG/15 ML SYR IV SCH (21:04)
[2019-12-27] MEDS: KETOROLAC TROMETHAMINE 15 MG/ML VIAL IV SCH ×2 (04:15→09:00)
[2019-12-27] MEDS: SODIUM CHLORIDE 0.9% 1000ML 1,000 ML IV SCH (04:16)
[2019-12-27] MEDS: ceFAZolin 2000MG 2,000 MG/15 ML SYR IV SCH (04:16)
[2019-12-27] MEDS: ACETAMINOPHEN 500 MG TAB PO SCH (05:02)
[2019-12-27 06:25] LABS: Hematocrit (blood only) 35.6 % (37-47); Hemoglobin 11.5 g/dL (12.0-16.0); Immature Granulocytes # (auto) 0.02 K/uL (0.00-0.02); Immature Granulocytes % (auto) 0.2 %; Lymphocytes # (auto) 0.88 K/uL (1.2-3.4); Lymphocytes % (auto) 8.3 %; Mean Corpuscular Hemoglobin 28.7 pg (25-34); Mean Corpuscular Hgb Conc 32.3 g/dL (32-36); Mean Corpuscular Volume 88.8 fL (80-100); Mean Platelet Volume 8.8 fL (7.4-10.4); Monocytes # (auto) 0.52 K/uL (0.11-0.59); Monocytes % (auto) 4.9 %; Neutrophils # (auto) 9.17 K/uL (1.4-6.5); Neutrophils % (auto) 86.6 %; Platelet Count 204 K/uL (130-400); RDW Coefficient of Variation 13.9 % (11.5-14.5); RDW Standard Deviation 45.9 fL (36.4-46.3); Red Blood Count 4.01 M/uL (4.2-5.4); White Blood Count 10.59 K/uL (4.8-10.8)
[2019-12-27 06:54] LABS: BUN Creatinine Ratio 18.8 (10-20); Calcium 7.9 mg/dl (8.5-10.1); Creatinine Clr Calc Pharmacy 84.2 ml/min; Est GFR (African American) 101.9; Est GFR (Non-African American) 87.9; Potassium 3.9 mmol/L (3.5-5.1)
[2019-12-27] MEDS ORDERED: dexAMETHasone 4 MG TAB PO SCH (08:00)
--- NOTE | 2019-12-27 08:15 | Orthopedic Progress Note ---
Date of Service December 27, 2019 Assessment & Plan (1) Status post reverse total replacement of left shoulder: Overall she is doing very well. She is having much pain in the left shoulder. She will be seen by physical therapy today for ambulation and range of motion exercises. She can be discharged home later today. She will follow- up with orthopedics in 2 weeks. Present on Admission?: Yes Admission and Anticipated Discharge Date Admission Date: December 26, 2019 Domonique Tolentino was seen and examined at bedside this morning. Overall she is doing very well. She is not having much pain in the left shoulder. She was able to get some sleep last night. She has no complaints. Physical Exam Physical Exam: On physical examination of her left shoulder, the dressing is clean and dry. Her radial, median, and ulnar nerves are checked intact at her wrist. Her axillary nerve was not checked yet. Results & Data ([facility]) Vital Signs (Past 12 Hours) Vital Signs Temp Pulse Resp BP Pulse Ox 12/27/19 07:51 36.6 C 78 16 123/66 93 12/27/19 04:00 36.8 C 63 16 120/75 98 12/26/19 23:18 36.4 C L 67 16 108/67 98 Laboratory Results H & H 12/17/19 12/27/19 Range/Units 11:18 05:30 Hgb 13.7 11.5 L (12.0-16.0) g/dL Hct 41.8 35.6 L (37-47) % Coagulation 12/17/19 Range/Units 11:18 INR 1.1 (0.9-1.1) Diagnostic Findings Postoperative x-rays of the left shoulder show the prosthesis to be in anatomic alignment without any evidence of fracture, dislocation, or loosening. PG Care Time/CCT Total # of Minutes Spent Total Time Spent with Patient: Total time spent is greater than 50% in coordination of care (as documented) at patient's floor/unit and/or counseling patient: Coding Level of Care Code None Diagnoses Status post reverse total replacement of left shoulder Z96.612
--- NOTE | 2019-12-27 08:16 | Discharge Summary ---
Date of Service December 27, 2019 Admission HPI Per Admitting Provider Randa is a pleasant 79-year-old female whose been dealing with a long history of left shoulder pain. She had to previous rotator cuff repairs done about 10 to 15 years ago. Unfortunately she continued to have pain in her shoulder. X- rays and clinical examination have been diagnostic for rotator cuff arthropathy of the left shoulder. After failing extensive conservative treatment, she has elected to proceed with a left reverse shoulder arthroplasty. Principal Diagnosis Left reverse shoulder replacement Discharge Data Allergies Allergy/AdvReac Type Severity Reaction Status Date / Time amoxicillin Allergy Unknown Hives Verified 12/26/19 11:55 rifampin Allergy Unknown Hives Verified 12/26/19 11:55 Consultations 12/26/19 15:51 Consult Case Management - Discharge Planning Routine Procedures Performed Operation Date: 12/26/19 13:20 Actual Procedures p Left Reverse Total Shoulder Arthroplasty(Left) - Isaac Peña DO Ordered Studies 12/26/19 05:00 US - OR guided needle placemen Routine Hospital Course (1) Status post reverse total replacement of left shoulder: On December 26, 2019 Randa arrived at [facility] and underwent a left reverse shoulder arthroplasty without complication. She had a general anesthetic with a left interscalene nerve block. Postoperatively she was placed in a sling and transferred to the general orthopedic floors. Her h ospital course was uneventful. On postop day #1 her H&H was stable and her pain was well controlled. She was able to participate well with physical therapy doing ambulation and range of motion exercises. She was then discharged home. She will follow-up with orthopedics in 2 weeks. Total Time Total Time Spent Total Time Spent (In Minutes): 20 Discharge Plan Discharge Items Patient Disposition: Home - Home Health Services Reason For Visit: Left Shoulder Degenerative Joint Disease Discharge Diagnosis: Left reverse shoulder replacement Activity: As commented below Non-emergency contact: Surgeon Call non-emergency contact if: your wound has increased redness and your wound has increased drainage Follow-up/Referrals: Jessika Corea DO [Primary Care Provider] - Diet: Regular Addtl Attending Provider Instructions: Activity and Therapy Recommendations: * If you are using [facility] then therapy will be provided at your home until they feel you have accomplished all of your goals. * If you are using [facility] then Physical Therapy will be provided until they feel you are ready to start Outpatient Physical Therapy. * If you are not using home therapy then Outpatient Physical Therapy should start about 3-5 days from your day of surgery. Therapy will last about 8-12 weeks * Wear your sling for 3 weeks, unless otherwise instructed. You may remove your sling to shower and to dress, but otherwise, you should be in your sling at all times, including while sleeping * The shoulder replacement is very stable and you can use your hand while in the sling * You were shown a series of exercises in the hospital. Do these exercises daily including the exercises you were shown in physical therapy. Medications: * Narcotic You will likely be sent home from the hospital with a prescription for the narcotic pain medication that worked best throughout your stay. * Other medications may be prescribed for specific circumstances. If you have any questions, please call the office at . * Resume previous home medications unless otherwise instructed Dressing Care: Leave the Silverlon dressing in place for 7 days. After 7 days you may remove the dressing. If the incision is not draining then you may leave the parveen open to air. If there is a little bit of drainage or if the parveen are getting stuck on your clothing then cover the incision with a dry dressing. The parveen will be removed at your 2 week follow-up appointment. Showering: You may shower with the Silverlon dressing in place. Do not let the shower spray hit the dressing directly. Pat the Silverlon dressing dry. If the dressing becomes wet underneath, then simply remove the dressing. Keep the incision dry until you are 7 days out from the day of surgery. After 7 days you may remove the Silverlon dressing and shower with the parveen exposed. Let soapy water run over the parveen and pat them dry. Do not scrub or soak the incision. Things To Watch For: * Drainage from the incision site that occurs more than one week after your surgery. * Increased redness at the incision site. * Fever above 102 degrees Fahrenheit. * Unusual chest pain or shortness of breath. * Call [facility] at with any of the above problems Follow-Up Visit: Follow-up with Dr. Peña's PA (Isaac Contreras) 2-3 weeks after your day of surgery. He will remove your parveen and answer any questions. If you have any additional questions or concerns, Dr Peña is usually in the office at the same time and will be available An appointment was probably scheduled when you signed-up for surgery in the office. If you have any questions call More detailed instructions as well as Frequently Asked Questions were provided in a folder by our office when you signed-up for surgery. Please review these instructions when you get home. If you have any further questions or concerns, please feel free to call the office at [phone] Pending Studies at Discharge: No Stand-Alone Forms: My [facility] [employer], Smoking Cessation Medications and DC Order Prescriptions: New oxycodone 5 mg Tablet 5 mg PO Q4H PRN (Reason: pain) Qty: 30 RF: 0 Continued buspirone 10 mg tablet 10 mg PO TID RF: 0 citalopram 20 mg tablet 20 mg PO QAM RF: 0 esomeprazole magnesium 40 mg capsule,delayed release(DR/EC) 40 mg PO DAILY PRN (Reason: Acid Reflux) RF: 0 potassium chloride 10 mEq capsule, extended release 10 meq PO 3XWK RF: 0 rosuvastatin [Crestor] 10 mg tablet 10 mg PO PM RF: 0 verapamil 120 mg capsule,ext rel. pellets 24 hr 120 mg PO QAM RF: 0 famotidine 20 mg Tablet 20 mg PO DAILY PRN (Reason: Acid Reflux) RF: 0 coenzyme Q10 [Co Q-10] 100 mg Capsule 200 mg PO QAM RF: 0 Lymph Drainage 10 drp PO QAM RF: 0 Elderberry 200 mg Capsule 400 mg PO QAM RF: 0 turmeric 400 mg Capsule 400 mg PO QAM RF: 0 C Muscle Plus 1 cap PO BID RF: 0 Di-Vitelometry 1 dose PO QAM RF: 0 Osteo B Plus 1 cap PO BID RF: 0 Soy Lecithin 1,200 mg PO QAM RF: 0 Vietnamese Black Radish 1 tab PO BID RF: 0 L-Lysine 500 mg Capsule 500 mg PO 2XWK RF: 0 moexipril [Univasc] 7.5 mg Tablet 7.5 mg PO BID RF: 0 Immune Support Complex 75 mg Tablet 2 tab PO QAM RF: 0 [id number] 50 mcg-75 mcg -100 mg Capsule 1 cap PO QAM RF: 0 Probiotic 3 billion cell Capsule 3,000 mmu cells PO 3XWK RF: 0 Move Free Joint Health 750 mg-100 mg- 1.65 mg-108 mg Tablet 1 tab PO BID RF: 0 Barley Life 1 cap PO BID RF: 0 Colergestaid 1 dose PO TID RF: 0 E-Mulsive V 200 mg PO 2XWK RF: 0 Frederick-Zyme 1 tab PO TID RF: 0 Nattokinase Plus 1 cap PO QAM RF: 0 Restore Plus Ad 1 dose PO QAM RF: 0 Serrapectate 1 dose PO BID RF: 0 Amino Sports 1 tab PO BID RF: 0 Prevagen 1 dose PO 3XWK RF: 0 Discontinued hydrocodone-acetaminophen 5-325 mg tablet 1 tab PO Q8H PRN (Reason: Pain) RF: 0 Discharge Orders: Discharge Order (Routine); Ordered 12/27/19 Ordered By: Isaac Peña Admission Data Admit Date/Time: 12/26/19 14:50 Attending Provider: Isaac Peña Admit Provider: Isaac Peña Primary Care Provider: Jessika Corea Coding Level of Care Code D/C Day Management <30 mins Diagnoses Status post reverse total replacement of left shoulder Z96.612
[2019-12-27] MEDS: ENALAPRIL MALEATE 10 MG TAB PO SCH (08:53)
[2019-12-27] MEDS: busPIRone 5 MG TAB PO SCH (08:53)
[2019-12-27] MEDS: DOCUSATE SODIUM 100 MG CAP PO SCH (08:53)
[2019-12-27] MEDS ORDERED: MULTIVITAMIN TAB PO SCH (09:00)
[2019-12-27] MEDS ORDERED: CITALOPRAM 20 MG TAB PO SCH (09:00)
[2019-12-27] MEDS ORDERED: [UNRECOGNIZED DRUG - OTHER] PO SCH (09:00)
[2019-12-27] MEDS ORDERED: VERAPAMIL HCL 120 MG TABCR PO SCH (09:00)
[2019-12-27] MEDS ORDERED: [UNRECOGNIZED DRUG - OTHER] PO SCH (09:00)
--- NOTE | 2019-12-27 10:29 | Anesthesiology Progress Note ---
Date of Service December 27, 2019 Anesthesia Post Procedure Vital Signs Vital Signs: Temp Pulse Pulse Resp BP Pulse Ox 12/27/19 07:51 36.6 C 78 16 123/66 93 12/27/19 04:00 36.8 C 63 16 120/75 98 12/26/19 23:18 36.4 C L 67 16 108/67 98 12/26/19 18:38 36.8 C 77 22 111/69 94 12/26/19 17:50 81 20 135/71 97 12/26/19 16:58 36.3 C L 74 16 119/72 97 12/26/19 16:22 36.4 C L 74 16 110/67 97 12/26/19 15:50 36.4 C L 79 18 117/69 94 12/26/19 15:36 73 18 108/60 95 12/26/19 15:25 36.5 C 72 18 116/66 95 12/26/19 15:15 70 18 122/67 95 12/26/19 15:05 70 18 135/71 97 12/26/19 14:55 69 17 131/72 100 12/26/19 14:46 36.2 C L 75 20 147/76 H 100 12/26/19 11:46 36.6 C 77 18 144/81 H 94 Pain Intensity Left Shoulder: Pain Intensity: 3 Transfer of Care Handoff Completed per policy Notes Mental Status: alert / awake / arousable and participated in evaluation Patient Amnestic to Procedure: Yes Nausea / Vomiting: adequately controlled Pain: adequately controlled Airway Patency, RR, SpO2: stable & adequate BP & HR: stable & adequate Hydration State: stable & adequate Anesthetic Complications: no major complications apparent and Pt Satisfied with anesthetic care
[2019-12-29] MEDS ORDERED: POTASSIUM CHLORIDE 10 MEQ TABCR PO SCH (09:00)
== END 2019-12-27 11:50 | disposition home health service (06) | DRG 483 ==
LOC: ASU 11:27 → 3E 14:50 → INTOOBSV 14:50 → OBSVTOIN 14:50

== ENCOUNTER 2021-12-09 16:54 | Inpatient (IN) ==
--- NOTE | 2021-12-09 17:48 | ED Triage Note ---
Date of Service December 09, 2021 History of Present Illness This patient was briefly evaluated while in triage. An abbreviated physical exam was performed. This patient is a 80-year-old Female with past medical history of liver and lymph node cancer who presents to the ED for evaluation of right neck swelling and pain that started 2 days ago. History of cancer, on chemo. Notes feeling unwell and low grade fever today of 99. Denies neck stiffness or difficulty swallowing, but has felt a little short of breath. Physical Exam CONSTITUTIONAL: No acute distress. Well appearing. NECK: Moderate right sided neck swelling, ttp, erythematous and slightly warm to the touch. Normal full ROM of the neck without pain. No nuchal rigidity. RESPIRATORY: Clear to auscultation bilaterally. Equal expansion bilaterally. CARDIOVASCULAR: Regular rate and rhythm with no murmurs, rubs or gallops. Normal peripheral perfusion. NEUROLOGIC: Alert and oriented X 4 with normal affect. Initial orders for labs and / or imaging were placed and patient was placed in the waiting area until a bed is available. Please see further documentation for the full ED course.
[2021-12-09 18:45] LABS: Basophils # (auto) 0.04 K/uL (0-0.2); Basophils % (auto) 0.5 %; Eosinophils # (auto) 0.14 K/uL (0-0.50); Eosinophils % (auto) 1.7 %; Hemoglobin 10.7 g/dl (12.0-16.0); Immature Granulocytes # (auto) 0.04 K/uL (0.00-0.02); Immature Granulocytes % (auto) 0.5 %; Lymphocytes # (auto) 2.02 K/uL (1.2-3.4); Mean Corpuscular Hemoglobin 28.6 pg (25.0-34.0); Mean Corpuscular Hgb Conc 32.4 g/dL (32.0-36.0); Mean Corpuscular Volume 88.2 fL (80.0-100.0); Mean Platelet Volume 8.3 fL (9.4-12.3); Monocytes # (auto) 1.44 K/uL (0.24-0.82); Monocytes % (auto) 17.1 %; Neutrophils # (auto) 4.73 K/uL (1.4-6.5); Neutrophils % (auto) 56.2 %; Platelet Count 123 K/uL (130-400); RDW Coefficient of Variation 15.1 % (11.5-14.5); RDW Standard Deviation 48.6 fL (36.4-46.3); Red Blood Count 3.74 M/uL (3.93-5.22); White Blood Count 8.41 K/ul (4.8-10.8)
[2021-12-09 18:55] LABS: Albumin Globulin Ratio 1.6 (0.9-2); Albumin Level 3.9 gm/dl (3.4-5.0); BUN Creatinine Ratio 28.6 (10-20); Bilirubin,Total 0.5 mg/dl (0.2-1.0); C Reactive Protein 3.54 mg/dl (0-0.5); Calcium 8.9 mg/dl (8.5-10.1); Creatinine Clr Calc Pharmacy 73.5 ml/min; Est GFR (African American) 99.6 ml/min; Est GFR (Non-African American) 85.9 ml/min; Globulin 2.5 gm/dl (2.5-4.0); Potassium 4.3 mmol/L (3.5-5.1); Total Protein 6.4 gm/dl (6.0-8.3)
[2021-12-09 18:56] LABS: INR 1.2 (0.9-1.1); Prothrombin Time 12.9 Seconds (9.0-12.0)
[2021-12-09 19:00] LABS: Troponin I High Sensitivity 8.5 pg/ml (0-14)
--- NOTE | 2021-12-09 19:09 | XRay Report ---
XR chest 1V portable HISTORY: 80 years-old Female sob . Acute shortness of breath COMPARISON: Chest radiograph 04/18/2021 TECHNIQUE: Portable AP view of the chest FINDINGS: Right IJ Gyiphb-d-Bidj catheter distal tip terminates in the expected location of the right atrium. C ardiac silhouette is enlarged. Emphysema with chronic interstitial coarsening. Pulmonary vascular con gestion with left greater than right reticular interstitial opacities. No pneumothorax. Blunting of t he costophrenic angles with mild right hemidiaphragmatic elevation. Degenerative changes of the right shoulder and spine. Reverse left shoulder total joint arthroplasty. IMPRESSION: 1. Emphysema with chronic interstitial coarsening. 2. Cardiomegaly with pulmonary vascular congestion and possible asymmetric pulmonary edema. ACT 112: Negative or not required by law. The above report was generated using voice recognition software. It may contain grammatical, syntax o r spelling errors. Electronically signed by: Maxim Arias M.D. 12/09/2021 7:08 PM
[2021-12-09 19:18] LABS: Appearance Urine Cloudy (Clear); Bacteria Urine Automated Negative (Negative); Bilirubin Urine Negative (Negative); Blood Urine 2+ (Negative); Color Urine Yellow; Epithelial Cell Urine Auto 20-30 /lpf (0-5); Glucose Urine UA Negative (Negative); Ketones Urine Negative (Negative); Leukocyte Esterase Urine 3+ (Negative); Nitrite Urine Negative (Negative); Protein Urine Trace (Negative); Specific Gravity Urine 1.021 (1.000-1.030); Urobilinogen Urine Negative (Negative); WBC Urine Automated >30 /hpf (0-5)
[2021-12-09] MEDS ORDERED: IOVERSOL 350 MG 100mL Prefilled Syringe IV ONE (19:33)
--- NOTE | 2021-12-09 20:22 | CT Scan Report ---
CT soft tissue neck w con HISTORY: 80 years-old Female R neck swelling/pain, on chemo acute pain and swelling of the right nec k. COMPARISON: CT cervical spine 12/07/2015, CTA chest 06/18/2020 TECHNIQUE: Multiple axial CT images of the soft tissues of the neck were obtained following the intr avenous ministration of 91 mL Optiray 350. A dose lowering technique was used consistent with the [facility] [place]. FINDINGS: There is a large acute appearing expansile occlusive thrombus within the right internal jugular vein extending for a length of 10 cm. The thrombus is located superior to the level of the right IJ is a p ort catheter. Moderate surrounding deep tissue edema results in local mass effect the adjacent soft t issues. Mildly heterogeneous thyroid with subcentimeter right-sided thyroid nodule. Parapharyngeal fa t planes are symmetric and well-maintained. Parotid and submandibular glands are within normal limits . The vallecula, glottis and subglottic airway are unremarkable. Borderline enlarged 10 mm right para tracheal lymph node on image 312 series 3. Subcentimeter supraclavicular lymph nodes measure up to 8 mm on the right. Prior bilateral lens repair. No acute process of the imaged intracranial structures. Streak artifact from left shoulder arthroplasty. Right upper lobe predominant reticular and groundglass opacities are suggestive of fibrosis. No acute fracture or destructive bone lesion. IMPRESSION: 1. Acute appearing occlusive deep venous thrombus of the right internal jugular vein measures up to 1 0 cm in length. 2. Borderline enlarged right peritracheal with subcentimeter supraclavicular lymph nodes. ACT 112: Negative or not required by law. The above report was generated using voice recognition software. It may contain grammatical, syntax o r spelling errors. Electronically signed by: Maxim Arias M.D. 12/09/2021 8:20 PM
--- NOTE | 2021-12-09 20:27 | Emergency Department Note ---
History of Present Illness General Chief complaint: Referred by Doctor Stated complaint: REFERRED BY DOCTOR FOR ULTRASOUND Time Seen by Provider: 12/09/21 18:26 Source: patient Mode of arrival: ambulatory Limitations: no limitations History of Present Illness Provider complaint: Neck pain Onset (ago): day(s) Maximum Pain Intensity: 4 This is a 72-year-old female presents emergency department complaining of right- sided neck pain and swelling that began 2 days ago. Patient states pain is worse with turning her head. She denies any pain or difficulty swallowing. She denies any trouble breathing. Denies fevers or chills. Patient is currently on chemotherapy being treated for cancer. 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 She states she follows with [facility]. She states her last infusion was a week ago as she began her most current cycle in November and goes every other week. She denies any chest pain, other joint pains, vomiting, or diarrhea. Family bedside states her voice sounds normal. She denies any recent URI symptoms. Home Medications Medication Instructions Recorded Confirmed Type buspirone 10 mg tablet 10 mg PO TID 12/10/19 12/10/21 History citalopram 20 mg tablet 20 mg PO QAM 12/10/19 12/10/21 History esomeprazole magnesium 40 mg 40 mg PO QAM 12/10/19 12/10/21 History capsule,delayed release potassium chloride 10 mEq 10 meq PO 3XWK 12/10/19 12/10/21 History capsule,extended release rosuvastatin 10 mg tablet (Crestor) 10 mg PO QAM 12/10/19 12/10/21 History verapamil 120 mg 24 hr 120 mg PO QAM 12/10/19 12/10/21 History capsule,extended release famotidine 20 mg tablet 20 mg PO DAILY PRN Acid Reflux 12/12/19 12/10/21 History dicyclomine 20 mg tablet 20 mg PO QID PRN Abdominal Pain 03/30/21 12/10/21 Hi story docusate sodium 100 mg tablet 100 mg PO AMHS 03/30/21 12/10/21 History furosemide 20 mg tablet 20 mg PO UD PRN Fluid Retention 03/30/21 12/10/21 History magnesium hydroxide 400 mg/5 mL 15 ml PO DAILY PRN gastric upset 05/28/21 12/10/21 History oral suspension (Milk of Magnesia) polyethylene glycol 3350 17 17 g PO DAILY 05/28/21 12/10/21 History gram/dose oral powder (Miralax) sennosides 8.6 mg-docusate sodium 1 - 2 tab-cap PO BID PRN 05/28/21 12/10/21 Rx 50 mg tablet (Senokot-S) constipation #60 tabs acetaminophen 500 mg tablet 500 mg PO Q6H PRN Pain 12/10/21 12/10/21 History (Tylenol Extra Strength) albuterol sulfate 90 mcg/actuation 2 puff inhalation Q6 PRN Cough 12/10/21 12/10/21 History aerosol inhaler apixaban 5 mg (74 tabs) tablets in 5 mg PO BID #74 ea 12/10/21 Rx a dose pack (Eliquis) conjugated estrogens 0.625 mg/gram 1 applic vaginal 2XWK 12/10/21 12/10/21 History vaginal cream (Premarin) hydrocodone 10 mg-acetaminophen 1 tab PO Q8 PRN Pain 12/10/21 12/10/21 History 325 mg tablet ibuprofen 200 mg tablet 200 mg PO Q4 PRN Pain 12/10/21 12/10/21 History lidocaine-prilocaine 2.5 %-2.5 % 1 applic topical DIRECTED 12/10/21 12/10/21 History topical cream magnesium oxide 400 mg (241.3 mg 400 mg PO QAM 12/10/21 12/10/21 History magnesium) tablet naloxone 4 mg/actuation nasal spray 1 spray intranasal DIRECTED 12/10/21 12/10/21 History nystatin 100,000 unit/gram topical 1 applic topical TID 12/10/21 12/10/21 History powder (Nyamyc) ondansetron HCl 8 mg tablet 8 mg PO Q8 PRN Nausea 12/10/21 12/10/21 History prochlorperazine maleate 10 mg 10 mg PO Q6 PRN Nausea 12/10/21 12/10/21 History tablet sennosides 8.6 mg-docusate sodium 1 tab-cap PO AMHS 12/10/21 12/10/21 History 50 mg tablet (Senna-S) triamcinolone acetonide 0.1 % 1 applic topical BID PRN flare up 12/10/21 12/10/21 History topical cream Allergies Allergy/AdvReac Type Severity Reaction Status Date / Time rifampin Allergy Intermediate Hives Verified 12/10/21 00:34 amoxicillin Allergy Mild Hives Verified 12/10/21 00:34 Past Med/Surg History Medical History CAD (coronary artery disease) non-obstructive Cholangiocarcinoma CURRENT DX Depression GERD (gastroesophageal reflux disease) HTN (hypertension) Hypersensitivity pneumonitis 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 REASON FOR PESSARY Sleep apnea CPAP Urinary frequency Surgical History H/O lymph node biopsy History of cardiac cath X2 (most recent 2011), no stents History of colonoscopy History of esophagogastroduodenoscopy (EGD) History of lung biopsy 04/2018 (showed scar tissue/hypersensitivity pneumonitis) History of repair of rotator cuff right History of tooth extraction History of total knee replacement R/L History of total shoulder replacement Left Reverse Total Shoulder Arthroplasty S/P arthroscopy of left shoulder X2 Family History Sister Diabetes Other No family history of adverse response to anesthesia Social History Smoking Status: Never smoker Second Hand Exposure: No; Hx Alcohol Use: No Hx Substance Use: No Preferred Language: Polish Communication Ability: Effective 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 Beliefs That Will Affect Care: Anglican Anglican Beliefs: HINDU , Spiritual and Cultural marital status: Current Living Situation: Spouse and Family Current Living Situation Comment: Lives with and family friend who takes care of Other Information That Helps Us Care for You: No Feels Safe at Home: Yes Safety Concerns: Feels Safe At This Time Assistive Devices: Cane and Walker Review of Systems A total of 10 systems reviewed and were otherwise negative All systems reviewed & are unremarkable except as noted in HPI & below Physical Exam Vital Signs Vital Signs - 24 hr 12/09/21 17:44 12/09/21 18:45 12/09/21 18:45 Temperature 37.0 C Temperature Source Temporal Artery Scan Pulse Rate 112 H 118 H Pulse Rate [Finger] Pulse Rhythm Regular Pulse Rhythm [Finger] Pulse Strength Normal Pulse Strength [Finger] Respiratory Rate 27 H 20 Respiratory Effort / Characteristics Non-Labored Respiratory Depth Normal Respiratory Pattern Regular Blood Pressure 162/85 H 127/86 Blood Pressure [Left Arm] Blood Pressure Mean 110 99 Blood Pressure Mean [Left Arm] Blood Pressure Position Sitting Pulse Oximetry 98 Oxygen Delivery Method Nasal Cannula Oxygen Flow Rate 3 Sepsis Recent Fever Within 48 Hours No Sepsis New/Unexplained Change in Mental Status N/A Sepsis Action Taken by Nursing Physician Notified 12/09/21 19:00 12/09/21 19:05 12/09/21 19:05 Temperature Temperature Source Pulse Rate 117 H 104 H Pulse Rate [Finger] Pulse Rhythm Pulse Rhythm [Finger] Pulse Strength Pulse Strength [Finger] Respiratory Rate 28 H 28 H Respiratory Effort / Characteristics Respiratory Depth Respiratory Pattern Blood Pressure 135/85 Blood Pressure [Left Arm] Blood Pressure Mean 101 Blood Pressure Mean [Left Arm] Blood Pressure Position Pulse Oximetry Oxygen Delivery Method Oxygen Flow Rate Sepsis Recent Fever Within 48 Hours Sepsis New/Unexplained Change in Mental Status Sepsis Action Taken by Nursing 12/09/21 19:15 12/09/21 19:15 12/09/21 19:37 Temperature Temperature Source Pulse Rate 81 92 H Pulse Rate [Finger] Pulse Rhythm Pulse Rhythm [Finger] Pulse Strength Pulse Strength [Finger] Respiratory Rate 25 H 23 Respiratory Effort / Characteristics Respiratory Depth Respiratory Pattern Blood Pressure 127/71 Blood Pressure [Left Arm] Blood Pressure Mean 89 Blood Pressure Mean [Left Arm] Blood Pressure Position Pulse Oximetry Oxygen Delivery Method Oxygen Flow Rate Sepsis Recent Fever Within 48 Hours Sepsis New/Unexplained Change in Mental Status Sepsis Action Taken by Nursing 12/09/21 19:45 12/09/21 19:45 12/09/21 20:00 Temperature Temperature Source Pulse Rate 104 H 105 H Pulse Rate [Finger] Pulse Rhythm Pulse Rhythm [Finger] Pulse Strength Pulse Strength [Finger] Respiratory Rate 31 H 32 H Respiratory Effort / Characteristics Respiratory Depth Respiratory Pattern Blood Pressure 128/72 Blood Pressure [Left Arm] Blood Pressure Mean 90 Blood Pressure Mean [Left Arm] Blood Pressure Position Pulse Oximetry Oxygen Delivery Method Oxygen Flow Rate Sepsis Recent Fever Within 48 Hours Sepsis New/Unexplained Change in Mental Status Sepsis Action Taken by Nursing 12/09/21 20:15 12/09/21 20:30 12/09/21 23:19 Temperature Temperature Source Pulse Rate 104 H 84 Pulse Rate [Finger] 85 Pulse Rhythm Pulse Rhythm [Finger] Regular Pulse Strength Pulse Strength [Finger] Normal Respiratory Rate 22 26 H 24 Respiratory Effort / Characteristics Non-Labored Spontaneous Respiratory Depth Normal Respiratory Pattern Blood Pressure Blood Pressure [Left Arm] 122/73 Blood Pressure Mean Blood Pressure Mean [Left Arm] 89 Blood Pressure Position Pulse Oximetry 99 Oxygen Delivery Method Oxygen Flow Rate Sepsis Recent Fever Within 48 Hours Sepsis New/Unexplained Change in Mental Status Sepsis Action Taken by Nursing GENERAL: alert, well appearing, well nourished, no distress, non-toxic EYE EXAM: normal conjunctiva, PERRL and EOM's grossly intact OROPHARYNX: no exudate, no erythema, lips, buccal mucosa, and tongue normal and mucous membranes are moist NECK: supple, no nuchal rigidity, no adenopathy, non-tender LUNGS: Clear to auscultation. Normal chest wall mechanics, no w/r/r HEART: no murmurs, S1 normal and S2 normal ABDOMEN: abdomen soft, non-tender, normo-active bowel sounds, no masses, no rebound or guarding. BACK: Back is symmetrical on inspection and there is no deformity, no midline tenderness, no CVA tenderness. SKIN: no rashes and no bruising UPPER EXTREMITIES: upper extremities are grossly normal. FROM, nml pulses b/l. LOWER EXTREMITIES: No pitting edema. FROM, nml pulses b/l. NEURO EXAM: Normal sensorium, cranial nerves II-XII grossly intact, normal speech, no gross weakness of arms, no gross weakness of legs. Gross sensation intact. Course Administered Medications Acetaminophen (Acetaminophen 325 Mg Tab) 650 mg PO Q6H PRN PRN Reason: mild pain or fever Stop: 01/09/22 09:01 Last Admin: 12/11/21 14:47 Dose: 650 mg Documented By: Admin: 12/10/21 14:31 Dose: 650 mg Documented By: BA Hydrocodone Bitart/Acetaminophen (Hydrocodone/Acetaminophen 10/325 Tab) 1 tab PO Q8H PRN PRN Reason: Pain Stop: 12/24/21 04:56 Last Admin: 12/11/21 20:18 Dose: 1 tab Documented By: Admin: 12/10/21 20:21 Dose: 1 tab Documented By: CAN Buspirone HCl (Buspirone 5 Mg Tab) 10 mg PO TID KELLY Stop: 01/09/22 08:59 Last Admin: 12/11/21 20:19 Dose: 10 mg Documented By: Admin: 12/11/21 14:44 Dose: 10 mg Documented By: Admin: 12/11/21 08:43 Dose: 10 mg Documented By: Admin: 12/10/21 20:20 Dose: 10 mg Documented By: Admin: 12/10/21 14:32 Dose: 10 mg Documented By: Admin: 12/10/21 09:28 Dose: 10 mg Documented By: BA Citalopram Hydrobromide (Citalopram 20 Mg Tab) 20 mg PO QAM KELLY Stop: 01/09/22 08:59 Last Admin: 12/11/21 08:42 Dose: 20 mg Documented By: Admin: 12/10/21 09:28 Dose: 20 mg Documented By: BA Heparin Sodium/Dextrose (Heparin Sodium/Dextrose) 25,000 units in 500 mls @ 19 mls/hr IV .Q24H KELLY; Protocol Stop: 01/08/22 22:59 Last Titration: 12/11/21 07:00 Dose: 950 units/hr, 19 mls/hr Documented By: JC Co-signed By: CAN Admin: 12/10/21 23:08 Dose: 950 units/hr, 19 mls/hr Documented By: CAN Co-signed By: MEME Titration: 12/10/21 23:08 Dose: 950 units/hr, 19 mls/hr Documented By: CAN Co-signed By: MEME Titration: 12/10/21 19:05 Dose: 950 units/hr, 19 mls/hr Documented By: CAN Co-signed By: BA Titration: 12/10/21 09:00 Dose: 950 units/hr, 19 mls/hr Documented By: BA Co-signed By: JC Titration: 12/10/21 07:53 Dose: 0 units/hr, 0 mls/hr Documented By: BA Co-signed By: JOE Titration: 12/10/21 07:19 Dose: 1,150 units/hr, 23 mls/hr Documented By: BA Co-signed By: CAN Admin: 12/09/21 23:16 Dose: 1,150 units/hr, 23 mls/hr Documented By: ANANYA Co-signed By: ROBERTO Ceftriaxone Sodium 2,000 mg/ (Dextrose) 70 mls @ 100 mls/hr IV Q24H [facility]; Protocol Stop: 12/21/21 01:59 Last Infusion: 12/11/21 02:52 Dose: 0 mls/hr Documented By: Admin: 12/11/21 02:10 Dose: 100 mls/hr Documented By: CAN Pantoprazole Sodium (Pantoprazole 40 Mg Tab) 40 mg PO QAM [facility] Stop: 01/09/22 08:59 Last Admin: 12/11/21 08:42 Dose: 40 mg Documented By: Admin: 12/10/21 09:28 Dose: 40 mg Documented By: BA Polyethylene Glycol (Polyethylene (Miralax) 17 Gm Pack) 17 gm PO DAILY [facility] Stop: 01/09/22 08:59 Last Admin: 12/11/21 08:43 Dose: Not Given Documented By: Admin: 12/10/21 09:39 Dose: Not Given Documented By: BA Potassium Chloride (Potassium Chloride 10 Meq Tabcr) 10 meq PO MoWeFr@2100 [facility] Stop: 01/10/22 20:59 Last Admin: 12/11/21 20:20 Dose: Not Given Documented By: LISA Rosuvastatin Calcium (Rosuvastatin Calcium 10 Mg Tab) 10 mg PO QAM [facility] Stop: 01/09/22 08:59 Last Admin: 12/11/21 08:43 Dose: 10 mg Documented By: Admin: 12/10/21 09:29 Dose: 10 mg Documented By: BA Senna/Docusate Sodium (Docusate Sodium/Senna 50/8.6mg Tab) 2 tab PO BID [facility] Stop: 01/09/22 08:59 Last Admin: 12/11/21 20:19 Dose: Not Given Documented By: Admin: 12/11/21 08:43 Dose: 2 tab Documented By: Admin: 12/10/21 20:16 Dose: Not Given Documented By: Admin: 12/10/21 09:39 Dose: Not Given Documented By: BA Verapamil HCl (Verapamil Hcl 120 Mg Tabcr) [facility] Stop: 01/09/22 08:59 Last Admin: 12/11/21 08:43 Dose: 120 mg Documented By: Admin: 12/10/21 09:29 Dose: 120 mg Documented By: BA Discontinued Medications Hydrocodone Bitart/Acetaminophen (Hydrocodone/Acetamophen 5/325mg Tab) 1 tab PO NOW STA Stop: 12/09/21 21:03 Last Admin: 12/09/21 21:15 Dose: 1 tab Documented By: ROBERTO Furosemide (Furosemide Inj 20 Mg/2 Ml Vial) 20 mg IV ONE ONE Stop: 12/09/21 23:13 Last Admin: 12/09/21 23:43 Dose: 20 mg Documented By: ANANYA Furosemide (Furosemide 40 Mg/4 Ml Vial) Confirm Administered Dose 40 mg IV .STK- MED ONE Stop: 12/09/21 23:42 Last Admin: 12/09/21 23:42 Dose: Not Given Documented By: ANANYA Heparin Sodium (Porcine) (Heparin Sod (Porcine) 1000 Unit/Ml) 1 units IV NOW ONE Stop: 12/09/21 22:54 Last Admin: 12/09/21 23:14 Dose: 5,000 units Documented By: ANANYA Co-signed By: ROBERTO Heparin Sodium/Dextrose (Heparin Iv Adult Wt-Based Standard With Bolus Protocol) 1 each IV NOW STA; Protocol Stop: 12/09/21 22:38 Last Admin: 12/09/21 23:48 Dose: 1 each Documented By: ANANYA Sodium Chloride (Nss 1000ml) 1,000 mls @ 125 mls/hr IV .Q8H KELLY Stop: 01/08/22 20:59 Last Infusion: 12/10/21 05:12 Dose: 0 mls/hr Documented By: Infusion: 12/09/21 23:31 Dose: 0 mls/hr Documented By: Admin: 12/09/21 22:12 Dose: 125 mls/hr Documented By: ROBERTO Ceftriaxone Sodium (Rocephin) 1,000 mg in 50 mls @ 100 mls/hr IV NOW STA Stop: 12/10/21 01:45 Last Infusion: 12/10/21 02:25 Dose: 0 mls/hr Documented By: Admin: 12/10/21 01:46 Dose: 100 mls/hr Documented By: ANANYA Ioversol (Ioversol 350 Mg 100ml Prefilled Syringe) 91 ml IV ONCE ONE Stop: 12/09/21 19:34 Last Admin: 12/09/21 19:33 Dose: 91 ml Documented By: LYNSEY Lactulose (Lactulose Syrup 20 Gm/30 Ml Udc) 30 gm PO NOW STA Stop: 12/10/21 01:28 Last Admin: 12/10/21 01:46 Dose: 30 gm Documented By: ANANYA Polyethylene Glycol (Polyethylene (Miralax) 17 Gm Pack) 17 gm PO NOW STA Stop: 12/10/21 01:28 Last Admin: 12/10/21 01:46 Dose: 17 gm Documented By: ANANYA Critical Care Time Critical Care Time: Yes Total Critical Care Time: 38 Critical care of 38 min performed to assess and manage high likelihood of life-threatening central DVT, involving labs and imaging performed with assessment to evaluate proximal DVT with neck swelling diagnosis with frequent reassessment. This time includes bedside time, treatment discussions with patient/family/consultants, documentation time and excludes procedure time. Medical Decision Making Differential Diagnosis Cervical strain, fracture, cervical disc disease, lymphadenitis, meningitis, tumor, arterial dissection, thyroiditis, parotitis, mastoiditis, neurologic, cardiovascular, as well as other pathologies. Medical Records Attestation: I reviewed the patient's medical records. Home Medications Current Medication List: was personally reviewed by me Laboratory Data Attestation: I reviewed the patient's lab results. Result diagrams: 12/11/21 05:58 12/11/21 05:58 Lab Results 12/09/21 12/09/21 12/09/21 Range/Units 18:13 18:13 18:13 WBC (4.8-10.8) K/ul RBC (3.93-5.22) M/uL Hgb (12.0-16.0) g/dl Hct (34.1-44.9) % MCV (80.0-100.0) fL MCH (25.0-34.0) pg MCHC (32.0-36.0) g/dL RDW Std Deviation (36.4-46.3) fL RDW Coeff of Soniya (11.5-14.5) % Plt Count (130-400) K/uL MPV (9.4-12.3) fL Immature Gran % (Auto) % Neut % (Auto) % Lymph % (Auto) % [place] % (Auto) % Eos % (Auto) % Baso % (Auto) % Neut # (Auto) (1.4-6.5) K/uL Lymph # (Auto) (1.2-3.4) K/uL [place] # (Auto) (0.24-0.82) K/uL Eos # (Auto) (0-0.50) K/uL Baso # (Auto) (0-0.2) K/uL Immature Gran # (Auto) (0.00-0.02) K/uL ESR (0-30) mm/hr PT 12.9 H (9.0-12.0) Seconds INR 1.2 H (0.9-1.1) Sodium 132 L (136-145) mmol/L Potassium 4.3 (3.5-5.1) mmol/L Chloride 98 (98-107) mmol/L Carbon Dioxide 29 (21-32) mmol/L Anion Gap 5 (3-11) BUN 18 (6-23) mg/dl Creatinine 0.63 (0.6-1.2) mg/dl Est Cr Clr Drug Dosing 73.5 ml/min Est GFR ( Amer) 99.6 ml/min Est GFR (Non-Af Amer) 85.9 ml/min BUN/Creatinine Ratio 28.6 H (10-20) Glucose 103 H (70-99(Fasting)) mg/dl Lactate (0.4-2.0) mmol/L Calcium 8.9 (8.5-10.1) mg/dl Magnesium (1.7-2.4) mg/dl Total Bilirubin 0.5 (0.2-1.0) mg/dl AST 20 (13-39) U/L ALT 12 (7-52) U/L Alkaline Phosphatase 101 (34-104) U/L Troponin I High Sens 8.5 (0-14) pg/ml C-Reactive Protein 3.54 H (0-0.5) mg/dl Total Protein 6.4 (6.0-8.3) gm/dl Albumin 3.9 (3.4-5.0) gm/dl Globulin 2.5 (2.5-4.0) gm/dl Albumin/Globulin Ratio 1.6 (0.9-2) Procalcitonin 0.08 (0-0.5) ng/ml Urine Color Urine Appearance (Clear) Urine pH (4.5-7.5) Ur Specific [place] (1.000-1.030) Urine Protein (Negative) Urine Glucose (UA) (Negative) Urine Ketones (Negative) Urine Blood (Negative) Urine Nitrite (Negative) Urine Bilirubin (Negative) Urine Urobilinogen (Negative) Ur Leukocyte Esterase (Negative) Urine WBC (Auto) (0-5) /hpf Urine RBC (Auto) (0-4) /hpf U Hyaline Cast (Auto) (0-5) /lpf U Epithel Cells (Auto) (0-5) /lpf Urine Bacteria (Auto) (Negative) SARS-CoV-2 (PCR) (Negative) 12/09/21 12/09/21 12/09/21 Range/Units 18:13 18:13 18:13 WBC 8.41 (4.8-10.8) K/ul RBC 3.74 L (3.93-5.22) M/uL Hgb 10.7 L (12.0-16.0) g/dl Hct 33.0 L (34.1-44.9) % MCV 88.2 (80.0-100.0) fL MCH 28.6 (25.0-34.0) pg MCHC 32.4 (32.0-36.0) g/dL RDW Std Deviation 48.6 H (36.4-46.3) fL RDW Coeff of Soniya 15.1 H (11.5-14.5) % Plt Count 123 L (130-400) K/uL MPV 8.3 L (9.4-12.3) fL Immature Gran % (Auto) 0.5 % Neut % (Auto) 56.2 % Lymph % (Auto) 24.0 % [place] % (Auto) 17.1 % Eos % (Auto) 1.7 % Baso % (Auto) 0.5 % Neut # (Auto) 4.73 (1.4-6.5) K/uL Lymph # (Auto) 2.02 (1.2-3.4) K/uL [place] # (Auto) 1.44 H (0.24-0.82) K/uL Eos # (Auto) 0.14 (0-0.50) K/uL Baso # (Auto) 0.04 (0-0.2) K/uL Immature Gran # (Auto) 0.04 H (0.00-0.02) K/uL ESR 32 H (0-30) mm/hr PT (9.0-12.0) Seconds INR (0.9-1.1) Sodium (136-145) mmol/L Potassium (3.5-5.1) mmol/L Chloride (98-107) mmol/L Carbon Dioxide (21-32) mmol/L Anion Gap (3-11) BUN (6-23) mg/dl Creatinine (0.6-1.2) mg/dl Est Cr Clr Drug Dosing ml/min Est GFR ( Amer) ml/min Est GFR (Non-Af Amer) ml/min BUN/Creatinine Ratio (10-20) Glucose (70-99(Fasting)) mg/dl Lactate 1.1 (0.4-2.0) mmol/L Calcium (8.5-10.1) mg/dl Magnesium (1.7-2.4) mg/dl Total Bilirubin (0.2-1.0) mg/dl AST (13-39) U/L ALT (7-52) U/L Alkaline Phosphatase (34-104) U/L Troponin I High Sens (0-14) pg/ml C-Reactive Protein (0-0.5) mg/dl Total Protein (6.0-8.3) gm/dl Albumin (3.4-5.0) gm/dl Globulin (2.5-4.0) gm/dl Albumin/Globulin Ratio (0.9-2) Procalcitonin (0-0.5) ng/ml Urine Color Urine Appearance (Clear) Urine pH (4.5-7.5) Ur Specific [place] (1.000-1.030) Urine Protein (Negative) Urine Glucose (UA) (Negative) Urine Ketones (Negative) Urine Blood (Negative) Urine Nitrite (Negative) Urine Bilirubin (Negative) Urine Urobilinogen (Negative) Ur Leukocyte Esterase (Negative) Urine WBC (Auto) (0-5) /hpf Urine RBC (Auto) (0-4) /hpf U Hyaline Cast (Auto) (0-5) /lpf U Epithel Cells (Auto) (0-5) /lpf Urine Bacteria (Auto) (Negative) SARS-CoV-2 (PCR) (Negative) 12/09/21 12/09/21 12/09/21 Range/Units 18:13 18:13 18:18 WBC (4.8-10.8) K/ul RBC (3.93-5.22) M/uL Hgb (12.0-16.0) g/dl Hct (34.1-44.9) % MCV (80.0-100.0) fL MCH (25.0-34.0) pg MCHC (32.0-36.0) g/dL RDW Std Deviation (36.4-46.3) fL RDW Coeff of Soniya (11.5-14.5) % Plt Count (130-400) K/uL MPV (9.4-12.3) fL Immature Gran % (Auto) % Neut % (Auto) % Lymph % (Auto) % [place] % (Auto) % Eos % (Auto) % Baso % (Auto) % Neut # (Auto) (1.4-6.5) K/uL Lymph # (Auto) (1.2-3.4) K/uL [place] # (Auto) (0.24-0.82) K/uL Eos # (Auto) (0-0.50) K/uL Baso # (Auto) (0-0.2) K/uL Immature Gran # (Auto) (0.00-0.02) K/uL ESR (0-30) mm/hr PT (9.0-12.0) Seconds INR (0.9-1.1) Sodium (136-145) mmol/L Potassium (3.5-5.1) mmol/L Chloride (98-107) mmol/L Carbon Dioxide (21-32) mmol/L Anion Gap (3-11) BUN (6-23) mg/dl Creatinine (0.6-1.2) mg/dl Est Cr Clr Drug Dosing ml/min Est GFR ( Amer) ml/min Est GFR (Non-Af Amer) ml/min BUN/Creatinine Ratio (10-20) Glucose (70-99(Fasting)) mg/dl Lactate (0.4-2.0) mmol/L Calcium (8.5-10.1) mg/dl Magnesium 1.8 (1.7-2.4) mg/dl Total Bilirubin (0.2-1.0) mg/dl AST (13-39) U/L ALT (7-52) U/L Alkaline Phosphatase (34-104) U/L Troponin I High Sens (0-14) pg/ml C-Reactive Protein (0-0.5) mg/dl Total Protein (6.0-8.3) gm/dl Albumin (3.4-5.0) gm/dl Globulin (2.5-4.0) gm/dl Albumin/Globulin Ratio (0.9-2) Procalcitonin (0-0.5) ng/ml Urine Color Yellow Urine Appearance Cloudy A (Clear) Urine pH 6.0 (4.5-7.5) Ur Specific [place] 1.021 (1.000-1.030) Urine Protein Trace H (Negative) Urine Glucose (UA) Negative (Negative) Urine Ketones Negative (Negative) Urine Blood 2+ H (Negative) Urine Nitrite Negative (Negative) Urine Bilirubin Negative (Negative) Urine Urobilinogen Negative (Negative) Ur Leukocyte Esterase 3+ H (Negative) Urine WBC (Auto) >30 H (0-5) /hpf Urine RBC (Auto) 10-30 H (0-4) /hpf U Hyaline Cast (Auto) 10-30 H (0-5) /lpf U Epithel Cells (Auto) 20-30 H (0-5) /lpf Urine Bacteria (Auto) Negative (Negative) SARS-CoV-2 (PCR) NEGATIVE (Negative) Imaging Data Radiologist's Impression: Soft Tissue Neck CT 12/09/21 17:49 CT soft tissue neck w con HISTORY: 80 years-old Female R neck swelling/pain, on chemo acute pain and swelling of the right neck. COMPARISON: CT cervical spine 12/07/2015, CTA chest 06/18/2020 TECHNIQUE: Multiple axial CT images of the soft tissues of the neck were obtained following the intravenous ministration of 91 mL Optiray 350. A dose lowering technique was used consistent with the principals of ALARA. FINDINGS: There is a large acute appearing expansile occlusive thrombus within the right internal jugular vein extending for a length of 10 cm. The thrombus is located superior to the level of the right IJ is a port catheter. Moderate surrounding deep tissue edema results in local mass effect the adjacent soft tissues. Mildly heterogeneous thyroid with subcentimeter right-sided thyroid nodule. Parapharyngeal fat planes are symmetric and well-maintained. Parotid and submandibular glands are within normal limits. The vallecula, glottis and subglottic airway are unremarkable. Borderline enlarged 10 mm right paratracheal lymph node on image 312 series 3. Subcentimeter supraclavicular lymph nodes measure up to 8 mm on the right. Prior bilateral lens repair. No acute process of the imaged intracranial structures. Streak artifact from left shoulder arthroplasty. Right upper lobe predominant reticular and groundglass opacities are suggestive of fibrosis. No acute fracture or destructive bone lesion. IMPRESSION: 1. Acute appearing occlusive deep venous thrombus of the right internal jugular vein measures up to 10 cm in length. 2. Borderline enlarged right peritracheal with subcentimeter supraclavicular lymph nodes. ACT 112: Negative or not required by law. The above report was generated using voice recognition software. It may contain grammatical, syntax or spelling errors. Electronically signed by: Maxim Arias M.D. 12/09/2021 8:20 PM Chest X-Ray 12/09/21 17:56 XR chest 1V portable HISTORY: 80 years-old Female sob . Acute shortness of breath COMPARISON: Chest radiograph 04/18/2021 TECHNIQUE: Portable AP view of the chest FINDINGS: Right IJ Oavwqg-t-Ivdj catheter distal tip terminates in the expected location of the right atrium. Cardiac silhouette is enlarged. Emphysema with chronic interstitial coarsening. Pulmonary vascular congestion with left greater than right reticular interstitial opacities. No pneumothorax. Blunting of the costophrenic angles with mild right hemidiaphragmatic elevation. Degenerative changes of the right shoulder and spine. Reverse left shoulder total joint arthroplasty. IMPRESSION: 1. Emphysema with chronic interstitial coarsening. 2. Cardiomegaly with pulmonary vascular congestion and possible asymmetric pulmonary edema. ACT 112: Negative or not required by law. The above report was generated using voice recognition software. It may contain grammatical, syntax or spelling errors. Electronically signed by: Maxim Arias M.D. 12/09/2021 7:08 PM Chest CTA 12/09/21 20:53 CT angio chest PE protocol CT DOSE: 558.03 mGy.cm HISTORY: 80 years-old Female with PE. Acute thrombus of the right internal jugular vein TECHNIQUE: Multiple CTA images of the chest were obtained after the intravenous administration of Optiray. Coronal and sagittal MIPS were obtained from the axial data set and were submitted for review. All measurements were obtained according to NASCET criteria. A dose lowering technique was utilized adhering to the principles of ALARA. COMPARISON: Soft tissue neck of same day, CT abdomen and pelvis 05/28/2021. FINDINGS: CTA: Moderate cardiomegaly. Moderate coronary artery calcifications. Atherosclerosis of the thoracic aorta with patency of the imaged great vessels. Dilated pulmonary arteries suggestive of pulmonary arterial hypertension. No pulmonary emboli are identified. Acute appearing occlusive thrombus of the right internal jugular vein with adjacent inflammatory stranding redemonstrated. A portion of the clot extends along the right IJ Ugyxfz-y-Daxf catheter. The distal tip of the catheter is present within the inferior aspect of the SVC. CT CHEST: Unremarkable thyroid. Mildly enlarged paratracheal and subcarinal lymph nodes measure up to approximately 1.4 cm. Mild right hemidiaphragmatic elevation. No pneumothorax, pleural effusion or overt pulmonary edema. Bilateral subpleural predominant reticulation with intermixed groundglass opacities and traction bronchiectasis appears progressed from the 06/18/2020 exam. No significant honeycombing. Calcified granuloma of the inferior segment lingula. There are no suspicious pulmonary nodules or masses identified. The central airways are patent. Contrast noted within the bilateral renal collecting systems. Mild nonspecific distal esophageal wall thickening. Progressively worsened multifocal hepatic metastasis, largest lesion within the right hepatic lobe measuring 6.6 cm, previously 4.8 cm. Unremarkable soft tissues. Left shoulder arthroplasty. Degenerative changes of the shoulders and spine. No destructive bone lesions are identified. IMPRESSION: 1. Partially imaged acute occlusive thrombus of the right internal jugular vein tracking along the Rnabej-w-Mnzp catheter redemonstrated. 2. Cardiomegaly with evidence of pulmonary arterial hypertension. No pulmonary emboli identified. 3. 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 4. Nonspecific mediastinal and hilar lymphadenopathy. 5. Progressively worsened hepatic metastatic disease. ACT 112: Negative or not required by law. The above report was generated using voice recognition software. It may contain grammatical, syntax or spelling errors. Electronically signed by: Maxim Arias M.D. 12/09/2021 10:23 PM ECG Data Attestation: I personally reviewed and interpreted this ECG as follows: Indication: + other Rate (beats per minute): 95 Rhythm: + normal sinus ECG Intervals/blocks: + Normal QRS and + Normal QT ECG [place]: + Normal ECG ST segments: + Nonspecific ST abnormalities ECG Findings: + PVCs MDM Narrative An order was placed for continuous cardiac monitoring. The monitor shows a rate of _80_ with _normal sinus_ rhythm. This is a 80 yo female who presents with 2-3 days of right neck pain and swelling. Patient with known metastatic cancer on chemo. Patient with an indwelling port in right superior chest wall. VS stable and pt afebrile. Labs reassuring. CT neck soft tissue with 10 cm DVT right IJ vein. Patient sent back for CT chest as a precaution, no PE or other thrombus. I did discuss the case with Dr. Diaz given atypical nature of this DVT in the setting of malignancy as well as the hospitalist team for additional mgmt. Patient started on heparin drip. 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
[2021-12-09] MEDS ORDERED: SODIUM CHLORIDE 0.9% 1000ML 1,000 ML IV SCH (21:00)
[2021-12-09] MEDS ORDERED: HYDROCODONE/ACETAMOPHEN 5/325MG TAB PO STA (21:02)
--- NOTE | 2021-12-09 22:25 | CT Scan Report ---
CT angio chest PE protocol CT DOSE: 558.03 mGy.cm HISTORY: 80 years-old Female with PE. Acute thrombus of the right internal jugular vein TECHNIQUE: Multiple CTA images of the chest were obtained after the intravenous administration of Opt iray. Coronal and sagittal MIPS were obtained from the axial data set and were submitted for review. All measurements were obtained according to NASCET criteria. A dose lowering technique was utilized adhering to the principles of ALARA. COMPARISON: Soft tissue neck of same day, CT abdomen and pelvis 05/28/2021. FINDINGS: CTA: Moderate cardiomegaly. Moderate coronary artery calcifications. Atherosclerosis of the thoracic aorta with patency of the imaged great vessels. Dilated pulmonary arteries suggestive of pulmonary arteria l hypertension. No pulmonary emboli are identified. Acute appearing occlusive thrombus of the right i nternal jugular vein with adjacent inflammatory stranding redemonstrated. A portion of the clot exten ds along the right IJ Riqlpu-g-Jghj catheter. The distal tip of the catheter is present within the in ferior aspect of the SVC. CT CHEST: Unremarkable thyroid. Mildly enlarged paratracheal and subcarinal lymph nodes measure up to approxima tely 1.4 cm. Mild right hemidiaphragmatic elevation. No pneumothorax, pleural effusion or overt pulmo nary edema. Bilateral subpleural predominant reticulation with intermixed groundglass opacities and t raction bronchiectasis appears progressed from the 06/18/2020 exam. No significant honeycombing. Calci fied granuloma of the inferior segment lingula. There are no suspicious pulmonary nodules or masses i dentified. The central airways are patent. Contrast noted within the bilateral renal collecting systems. Mild nonspecific distal esophageal wall thickening. Progressively worsened multifocal hepatic metastasis, largest lesion within the right he patic lobe measuring 6.6 cm, previously 4.8 cm. Unremarkable soft tissues. Left shoulder arthroplasty . Degenerative changes of the shoulders and spine. No destructive bone lesions are identified. IMPRESSION: 1. Partially imaged acute occlusive thrombus of the right internal jugular vein tracking along the In fuse-a-Port catheter redemonstrated. 2. Cardiomegaly with evidence of pulmonary arterial hypertension. No pulmonary emboli identified. 3. 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 4. Nonspecific mediastinal and hilar lymphadenopathy. 5. Progressively worsened hepatic metastatic disease. ACT 112: Negative or not required by law. The above report was generated using voice recognition software. It may contain grammatical, syntax o r spelling errors. Electronically signed by: Maxim Arias M.D. 12/09/2021 10:23 PM
[2021-12-09] MEDS ORDERED: Heparin IV Adult Wt-Based Standard WITH Bolus Protocol IV STA (22:37)
[2021-12-09] MEDS ORDERED: HEPARIN SOD (PORCINE) 1000 UNIT/ML IV SCH (22:53)
[2021-12-09] MEDS ORDERED: HEPARIN SOD (PORCINE) 1000 UNIT/ML IV ONE (22:53)
[2021-12-09] MEDS ORDERED: FUROSEMIDE INJ 20 MG/2 ML VIAL IV ONE (23:12)
[2021-12-09] MEDS: HEPARIN SODIUM/DEXTROSE 25,000 UNITS/500 ML BAG IV SCH (23:16)
[2021-12-09] MEDS ORDERED: FUROSEMIDE 40 MG/4 ML VIAL IV ONE (23:41)
[2021-12-10] MEDS ORDERED: cefTRIAXone SODIUM 1,000 MG/50 ML BAG IV STA (01:16)
[2021-12-10] MEDS ORDERED: LACTULOSE SYRUP 20 GM/30 ML UDC PO STA (01:27)
[2021-12-10] MEDS ORDERED: POLYETHYLENE (MIRALAX) 17 GM PACK PO STA (01:27)
--- NOTE | 2021-12-10 01:28 | History & Physical Report ---
Date of Service December 10, 2021 Assessment & Plan (1) Acute internal jugular vein thrombosis: Plan: Metastatic cholangiocarcinoma ongoing chemotherapy Progressive disease noted on imaging today. Abdominal pain Multifactorial Narcotic induced constipation ? Complicated UTI, no sepsis for now chronic respiratory failure secondary to pulmonary hypertension secondary to interstitial lung disease (hypersensitivity pneumonitis) on home O2, pulmonary status at baseline chronic diastolic heart failure (EF 55 to 59%, TTE 2020), some congestion and CXR hypertension, stable hyperlipidemia on statin Rx chronic anemia, hemoglobin at baseline Thrombocytopenia possibly from acute clot/chemotherapy GMF IV heparin Contact patient's [facility] oncologist regarding recommendations for home anticoagulation. Watch out for bleeding given thrombocytopenia Bowel regimen, Relistor if no response Urine CS, Ceftriaxone DVT prophylaxis. IV heparin Full code Patient [id number] requesting updates from providers. Mr. Caleb Thomas, contact #[phone]. Text document was generated using [employer] voice recognition software. It may contain grammatical or spelling errors. Kindly contact undersigned for clarification of any documentation item in questi on. History of Present Illness Chief Complaint: Right-sided neck pain/swelling Primary Care Provider: Jessika Corea, History obtained from patient, family, and records. 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 Last confinement December 2019 under orthopedic service for elective left shoulder surgery. 2 days ago, patient noted painful swelling on the right side of the neck. No headache. No chest pain. Usual shortness of breath on exertion as per patient. No unusual fluid retention. Transient abdominal discomfort. Patient constipated the last few days. Denies dysuria. Denies fever, chills. No recent trauma. Patient directed to ER by outpatient provider. IV heparin initiated for right IJV thrombus on CT. IV ceftriaxone administered for possible UTI. Medical History as above Surgical History : Knee surgeries, partial hysterectomy, cataract surgeries, a port placement, shoulder surgery, thorascopic biopsy Family History : Heart disease, CVA, uterine cancer Personal/Social history : Non-smoker, occasional EtOH intake, retired businesswoman Allergies Allergy/AdvReac Type Severity Reaction Status Date / Time rifampin Allergy Intermediate Hives Verified 12/10/21 00:34 amoxicillin Allergy Mild Hives Verified 12/10/21 00:34 Home Medications Medication Instructions Recorded Confirmed Type buspirone 10 mg tablet 10 mg PO TID 12/10/19 12/10/21 History citalopram 20 mg tablet 20 mg PO QAM 12/10/19 12/10/21 History esomeprazole magnesium 40 mg 40 mg PO QAM 12/10/19 12/10/21 History capsule,delayed release potassium chloride 10 mEq 10 meq PO 3XWK 12/10/19 12/10/21 History capsule,extended release rosuvastatin 10 mg tablet (Crestor) 10 mg PO QAM 12/10/19 12/10/21 History verapamil 120 mg 24 hr 120 mg PO QAM 12/10/19 12/10/21 History capsule,extended release famotidine 20 mg tablet 20 mg PO DAILY PRN Acid Reflux 12/12/19 12/10/21 History dicyclomine 20 mg tablet 20 mg PO QID PRN Abdominal Pain 03/30/21 12/10/21 History docusate sodium 100 mg tablet 100 mg PO AMHS 03/30/21 12/10/21 History furosemide 20 mg tablet 20 mg PO UD PRN Fluid Retention 03/30/21 12/10/21 History magnesium hydroxide 400 mg/5 mL 15 ml PO DAILY PRN gastric upset 05/28/21 12/10/21 History oral suspension (Milk of Magnesia) polyethylene glycol 3350 17 17 g PO DAILY 05/28/21 12/10/21 History gram/dose oral powder (Miralax) sennosides 8.6 mg-docusate sodium 1 - 2 tab-cap PO BID PRN 05/28/21 12/10/21 Rx 50 mg tablet (Senokot-S) constipation #60 tabs acetaminophen 500 mg tablet 500 mg PO Q6H PRN Pain 12/10/21 12/10/21 History (Tylenol Extra Strength) albuterol sulfate 90 mcg/actuation 2 puff inhalation Q6 PRN Cough 12/10/21 12/10/21 History aerosol inhaler conjugated estrogens 0.625 mg/gram 1 applic vaginal 2XWK 12/10/21 12/10/21 History vaginal cream (Premarin) hydrocodone 10 mg-acetaminophen 1 tab PO Q8 PRN Pain 12/10/21 12/10/21 History 325 mg tablet ibuprofen 200 mg tablet 200 mg PO Q4 PRN Pain 12/10/21 12/10/21 History lidocaine-prilocaine 2.5 %-2.5 % 1 applic topical DIRECTED 12/10/21 12/10/21 History topical cream magnesium oxide 400 mg (241.3 mg 400 mg PO QAM 12/10/21 12/10/21 History magnesium) tablet naloxone 4 mg/actuation nasal spray 1 spray intranasal DIRECTED 12/10/21 12/10/21 History nystatin 100,000 unit/gram topical 1 applic topical TID 12/10/21 12/10/21 History powder (Nyamyc) ondansetron HCl 8 mg tablet 8 mg PO Q8 PRN Nausea 12/10/21 12/10/21 History prochlorperazine maleate 10 mg 10 mg PO Q6 PRN Nausea 12/10/21 12/10/21 History tablet sennosides 8.6 mg-docusate sodium 1 tab-cap PO AMHS 12/10/21 12/10/21 History 50 mg tablet (Senna-S) triamcinolone acetonide 0.1 % 1 applic topical BID PRN flare up 12/10/21 12/10/21 History topical cream Past Med/Surg History Medical History CAD (coronary artery disease) non-obstructive Cholangiocarcinoma CURRENT DX Depression GERD (gastroesophageal reflux disease) HTN (hypertension) Hypersensitivity pneumonitis 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 REASON FOR PESSARY Sleep apnea CPAP Urinary frequency Surgical History H/O lymph node biopsy History of cardiac cath X2 (most recent 2011), no stents History of colonoscopy History of esophagogastroduodenoscopy (EGD) History of lung biopsy 04/2018 (showed scar tissue/hypersensitivity pneumonitis) History of repair of rotator cuff right History of tooth extraction History of total knee replacement R/L History of total shoulder replacement Left Reverse Total Shoulder Arthroplasty S/P arthroscopy of left shoulder X2 Family History Sister Diabetes Other No family history of adverse response to anesthesia Social History Smoking Status: Never smoker Second Hand Exposure: No; Hx Alcohol Use: No Hx Substance Use: No Preferred Language: Austrian Communication Ability: Effective Labeling Associate Required: No Beliefs That Will Affect Care: Christianity Christianity Beliefs: BAHAI , Spiritual and Cultural marital status: Current Living Situation: Spouse and Family Current Living Situation Comment: Lives with and family friend who takes care of Other Information That Helps Us Care for You: No Feels Safe at Home: Yes Safety Concerns: Feels Safe At This Time Assistive Devices: Cane, Denture - Upper, Glasses and Walker Review of Systems Review of Systems: As per HPI, all other systems reviewed and negative Physical Exam Physical Exam: GENERAL: Comfortable, slightly anxious, no respiratory distress SKIN: Pallor, warm HEENT: Bespectacled, pale palpebral conjunctivae, no ptosis, dry buccal mucosa, nasal cannula in place NECK : Some limitation in motion, right cervical tenderness CHEST : CTA, no tenderness HEART : RRR, no obvious murmurs ABDOMEN: Some distention, nontender EXTREMITIES : Minimal LE swelling, no LE tenderness, no other conspicuous deformities noted NEUROLOGIC : Coherent, no facial asymmetry, no other gross focality Results & Data Results & Data ([facility]) Vital Signs (Past 12 Hours) Vital Signs Temp Pulse Pulse Resp BP BP Pulse Ox 12/09/21 23:19 85 24 122/73 99 12/09/21 20:30 84 26 H 12/09/21 20:15 104 H 22 12/09/21 20:00 105 H 32 H 12/09/21 19:45 104 H 31 H 12/09/21 19:45 128/72 12/09/21 19:37 92 H 23 12/09/21 19:15 81 25 H 12/09/21 19:15 127/71 12/09/21 19:05 104 H 28 H 12/09/21 19:05 135/85 12/09/21 19:00 117 H 28 H 12/09/21 18:45 118 H 20 12/09/21 18:45 127/86 12/09/21 17:44 37.0 C 112 H 27 H 162/85 H 98 O2 Del Method O2 Flow Rate 12/09/21 23:19 12/09/21 20:30 12/09/21 20:15 12/09/21 20:00 12/09/21 19:45 12/09/21 19:45 12/09/21 19:37 12/09/21 19:15 12/09/21 19:15 12/09/21 19:05 12/09/21 19:05 12/09/21 19:00 12/09/21 18:45 12/09/21 18:45 12/09/21 17:44 Nasal Cannula 3 Laboratory Results Laboratory Results WBC 8.41 K/ul (4.8-10.8) 12/09/21 18:13 RBC 3.74 M/uL (3.93-5.22) L 12/09/21 18:13 Hgb 10.7 g/dl (12.0-16.0) L 12/09/21 18:13 Hct 33.0 % (34.1-44.9) L 12/09/21 18:13 MCV 88.2 fL (80.0-100.0) 12/09/21 18:13 MCH 28.6 pg (25.0-34.0) 12/09/21 18:13 MCHC 32.4 g/dL (32.0-36.0) 12/09/21 18:13 RDW Std Deviation 48.6 fL (36.4-46.3) H 12/09/21 18:13 RDW Coeff of Soniya 15.1 % (11.5-14.5) H 12/09/21 18:13 Plt Count 123 K/uL (130-400) L 12/09/21 18:13 MPV 8.3 fL (9.4-12.3) L 12/09/21 18:13 Immature Gran % (Auto) 0.5 % 12/09/21 18:13 Neut % (Auto) 56.2 % 12/09/21 18:13 Lymph % (Auto) 24.0 % 12/09/21 18:13 Wake % (Auto) 17.1 % 12/09/21 18:13 Eos % (Auto) 1.7 % 12/09/21 18:13 Baso % (Auto) 0.5 % 12/09/21 18:13 Neut # (Auto) 4.73 K/uL (1.4-6.5) 12/09/21 18:13 Lymph # (Auto) 2.02 K/uL (1.2-3.4) 12/09/21 18:13 Wake # (Auto) 1.44 K/uL (0.24-0.82) H 12/09/21 18:13 Eos # (Auto) 0.14 K/uL (0-0.50) 12/09/21 18:13 Baso # (Auto) 0.04 K/uL (0-0.2) 12/09/21 18:13 Immature Gran # (Auto) 0.04 K/uL (0.00-0.02) H 12/09/21 18:13 ESR 32 mm/hr (0-30) H 12/09/21 18:13 PT 12.9 Seconds (9.0-12.0) H 12/09/21 18:13 INR 1.2 (0.9-1.1) H 12/09/21 18:13 Sodium 132 mmol/L (136-145) L 12/09/21 18:13 Potassium 4.3 mmol/L (3.5-5.1) 12/09/21 18:13 Chloride 98 mmol/L (98-107) 12/09/21 18:13 Carbon Dioxide 29 mmol/L (21-32) 12/09/21 18:13 Anion Gap 5 (3-11) 12/09/21 18:13 BUN 18 mg/dl (6-23) 12/09/21 18:13 Creatinine 0.63 mg/dl (0.6-1.2) 12/09/21 18:13 Est Cr Clr Drug Dosing 73.5 ml/min 12/09/21 18:13 Est GFR ( Amer) 99.6 ml/min 12/09/21 18:13 Est GFR (Non-Af Amer) 85.9 ml/min 12/09/21 18:13 BUN/Creatinine Ratio 28.6 (10-20) H 12/09/21 18:13 Glucose 103 mg/dl (70-99(Fasting)) H 12/09/21 18:13 Lactate 1.1 mmol/L (0.4-2.0) 12/09/21 18:13 Calcium 8.9 mg/dl (8.5-10.1) 12/09/21 18:13 Magnesium 1.8 mg/dl (1.7-2.4) 12/09/21 18:13 Total Bilirubin 0.5 mg/dl (0.2-1.0) 12/09/21 18:13 AST 20 U/L (13-39) 12/09/21 18:13 ALT 12 U/L (7-52) 12/09/21 18:13 Alkaline Phosphatase 101 U/L (34-104) 12/09/21 18:13 Troponin I High Sens 8.5 pg/ml (0-14) 12/09/21 18:13 C-Reactive Protein 3.54 mg/dl (0-0.5) H 12/09/21 18:13 Total Protein 6.4 gm/dl (6.0-8.3) 12/09/21 18:13 Albumin 3.9 gm/dl (3.4-5.0) 12/09/21 18:13 Globulin 2.5 gm/dl (2.5-4.0) 12/09/21 18:13 Albumin/Globulin Ratio 1.6 (0.9-2) 12/09/21 18:13 Procalcitonin 0.08 ng/ml (0-0.5) 12/09/21 18:13 Urine Color Yellow 12/09/21 18:18 Urine Appearance Cloudy (Clear) A 12/09/21 18:18 Urine pH 6.0 (4.5-7.5) 12/09/21 18:18 Ur Specific [place] 1.021 (1.000-1.030) 12/09/21 18:18 Urine Protein Trace (Negative) H 12/09/21 18:18 Urine Glucose (UA) Negative (Negative) 12/09/21 18:18 Urine Ketones Negative (Negative) 12/09/21 18:18 Urine Blood 2+ (Negative) H 12/09/21 18:18 Urine Nitrite Negative (Negative) 12/09/21 18:18 Urine Bilirubin Negative (Negative) 12/09/21 18:18 Urine Urobilinogen Negative (Negative) 12/09/21 18:18 Ur Leukocyte Esterase 3+ (Negative) H 12/09/21 18:18 Urine WBC (Auto) >30 /hpf (0-5) H 12/09/21 18:18 Urine RBC (Auto) 10-30 /hpf (0-4) H 12/09/21 18:18 U Hyaline Cast (Auto) 10-30 /lpf (0-5) H 12/09/21 18:18 U Epithel Cells (Auto) 20-30 /lpf (0-5) H 12/09/21 18:18 Urine Bacteria (Auto) Negative (Negative) 12/09/21 18:18 SARS-CoV-2 (PCR) NEGATIVE (Negative) 12/09/21 18:13 Impressions Soft Tissue Neck CT 12/09/21 17:49 CT soft tissue neck w con HISTORY: 80 years-old Female R neck swelling/pain, on chemo acute pain and swel ling of the right neck. COMPARISON: CT cervical spine 12/07/2015, CTA chest 06/18/2020 TECHNIQUE: Multiple axial CT images of the soft tissues of the neck were obtained following the intravenous ministration of 91 mL Optiray 350. A dose lowering technique was used consistent with the principals of ALARA. FINDINGS: There is a large acute appearing expansile occlusive thrombus within the right internal jugular vein extending for a length of 10 cm. The thrombus is located superior to the level of the right IJ is a port catheter. Moderate surrounding deep tissue edema results in local mass effect the adjacent soft tissues. Mildly heterogeneous thyroid with subcentimeter right-sided thyroid nodule. Parapharyngeal fat planes are symmetric and well-maintained. Parotid and submandibular glands are within normal limits. The vallecula, glottis and subglottic airway are unremarkable. Borderline enlarged 10 mm right paratracheal lymph node on image 312 series 3. Subcentimeter supraclavicular lymph nodes measure up to 8 mm on the right. Prior bilateral lens repair. No acute process of the imaged intracranial structures. Streak artifact from left shoulder arthroplasty. Right upper lobe predominant reticular and groundglass opacities are suggestive of fibrosis. No acute fracture or destructive bone lesion. IMPRESSION: 1. Acute appearing occlusive deep venous thrombus of the right internal jugular vein measures up to 10 cm in length. 2. Borderline enlarged right peritracheal with subcentimeter supraclavicular lymph nodes. ACT 112: Negative or not required by law. The above report was generated using voice recognition software. It may contain grammatical, syntax or spelling errors. Electronically signed by: Maxim Arias M.D. 12/09/2021 8:20 PM Chest X-Ray 12/09/21 17:56 XR chest 1V portable HISTORY: 80 years-old Female sob . Acute shortness of breath COMPARISON: Chest radiograph 04/18/2021 TECHNIQUE: Portable AP view of the chest FINDINGS: Right IJ Byndcs-v-Ukbs catheter distal tip terminates in the expected location of the right atrium. Cardiac silhouette is enlarged. Emphysema with chronic interstitial coarsening. Pulmonary vascular congestion with left greater than right reticular interstitial opacities. No pneumothorax. Blunting of the costophrenic angles with mild right hemidiaphragmatic elevation. Degenerative changes of the right shoulder and spine. Reverse left shoulder total joint arthroplasty. IMPRESSION: 1. Emphysema with chronic interstitial coarsening. 2. Cardiomegaly with pulmonary vascular congestion and possible asymmetric pulmonary edema. ACT 112: Negative or not required by law. The above report was generated using voice recognition software. It may contain grammatical, syntax or spelling errors. Electronically signed by: Maxim Arias M.D. 12/09/2021 7:08 PM Chest CTA 12/09/21 20:53 CT angio chest PE protocol CT DOSE: 558.03 mGy.cm HISTORY: 80 years-old Female with PE. Acute thrombus of the right internal jugular vein TECHNIQUE: Multiple CTA images of the chest were obtained after the intravenous administration of Optiray. Coronal and sagittal MIPS were obtained from the axial data set and were submitted for review. All measurements were obtained according to NASCET criteria. A dose lowering technique was utilized adhering to the principles of ALARA. COMPARISON: Soft tissue neck of same day, CT abdomen and pelvis 05/28/2021. FINDINGS: CTA: Moderate cardiomegaly. Moderate coronary artery calcifications. Atherosclerosis of the thoracic aorta with patency of the imaged great vessels. Dilated pulmonary arteries suggestive of pulmonary arterial hypertension. No pulmonary emboli are identified. Acute appearing occlusive thrombus of the right internal jugular vein with adjacent inflammatory stranding redemonstrated. A portion of the clot extends along the right IJ [id number]-j-[id number] catheter. The distal tip of the catheter is present within the inferior aspect of the SVC. CT CHEST: Unremarkable thyroid. Mildly enlarged paratracheal and subcarinal lymph nodes measure up to approximately 1.4 cm. Mild right hemidiaphragmatic elevation. No pneumothorax, pleural effusion or overt pulmonary edema. Bilateral subpleural predominant reticulation with intermixed groundglass opacities and traction bronchiectasis appears progressed from the 06/18/2020 exam. No significant honeycombing. Calcified granuloma of the inferior segment lingula. There are no suspicious pulmonary nodules or masses identified. The central airways are patent. Contrast noted within the bilateral renal collecting systems. Mild nonspecific distal esophageal wall thickening. Progressively worsened multifocal hepatic metastasis, largest lesion within the right hepatic lobe measuring 6.6 cm, previously 4.8 cm. Unremarkable soft tissues. Left shoulder arthroplasty. Degenerative changes of the shoulders and spine. No destructive bone lesions are identified. IMPRESSION: 1. Partially imaged acute occlusive thrombus of the right internal jugular vein tracking along the Ftekdf-n-Inzz catheter redemonstrated. 2. Cardiomegaly with evidence of pulmonary arterial hypertension. No pulmonary emboli identified. 3. 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 4. Nonspecific mediastinal and hilar lymphadenopathy. 5. Progressively worsened hepatic metastatic disease. ACT 112: Negative or not required by law. The above report was generated using voice recognition software. It may contain grammatical, syntax or spelling errors. Electronically signed by: Maxim Arias M.D. 12/09/2021 10:23 PM Diagnostic Findings EKG as per my interpretation :Rate 95, LAD, LAFB, LVH, T wave abnormality septal leads, PVCs
[2021-12-10] MEDS ORDERED: FAMOTIDINE 20 MG TAB PO PRN (04:57)
[2021-12-10] MEDS ORDERED: PROMETHAZINE HCL 12.5 MG in SODIUM CHLORIDE 0.9% 50 ML IV PRN (04:57)
[2021-12-10] MEDS ORDERED: LORazepam 0.5 MG TAB PO PRN (04:57)
[2021-12-10 07:33] LABS: Partial Thromboplastin Ratio 3.9
[2021-12-10 07:50] LABS: Partial Thromboplastin Time 106.9 Seconds (21.0-31.0)
[2021-12-10] MEDS: busPIRone 5 MG TAB PO SCH ×3 (09:28→20:20)
[2021-12-10] MEDS: DOCUSATE SODIUM/SENNA 50/8.6MG TAB PO SCH ×3 (09:28→20:16)
[2021-12-10] MEDS: POLYETHYLENE (MIRALAX) 17 GM PACK PO SCH ×2 (09:28→09:39)
[2021-12-10] MEDS: CITALOPRAM 20 MG TAB PO SCH (09:28)
[2021-12-10] MEDS: PANTOprazole 40 MG TAB PO SCH (09:28)
[2021-12-10] MEDS: ROSUVASTATIN CALCIUM 10 MG TAB PO SCH (09:29)
[2021-12-10] MEDS: VERAPAMIL HCL 120 MG TABCR PO SCH (09:29)
[2021-12-10] MEDS: ACETAMINOPHEN 325 MG TAB PO PRN (14:31)
[2021-12-10 15:48] LABS: Partial Thromboplastin Ratio 1.8; Partial Thromboplastin Time 50.1 Seconds (21.0-31.0)
--- NOTE | 2021-12-10 16:22 | Electrocardiogram Report ---
Test Reason : Blood Pressure : / mmHG Vent. Rate : 095 BPM Atrial Rate : 095 BPM P-R Int : 202 ms QRS Dur : 088 ms QT Int : 338 ms P-R-T Axes : 029 -31 044 degrees QTc Int : 424 ms Sinus rhythm with Premature supraventricular complexes and with occasional Premature ventricular comp lexes Left axis deviation Minimal voltage criteria for LVH, may be normal variant Septal infarct (cited on or before 27-APR-2016) Abnormal ECG When compared with ECG of 18-JUN-2020 13:14, Premature ventricular complexes are now Present Premature supraventricular complexes are now Present Confirmed by Francisco Friedman ([id number]) on 12/10/2021 4:22:02 PM Referred By: REFERRED SELF Confirmed By:Francisco Friedman
--- NOTE | 2021-12-10 16:49 | Hospitalist Progress Note ---
Date of Service December 10, 2021 Assessment & Plan (1) Acute internal jugular vein thrombosis: Plan 80-year-old lady with PMH of chronic respiratory failure secondary to pulmonary hypertension secondary to interstitial lung disease [hypersensitivity pneumonitis] on 2.5 L oxygen at home, VANESSA on CPAP, chronic diastolic heart failure [2020 TTE with EF of 55 to 59%], valvular heart disease [mild MR/TR], nonobstructive CAD, HTN, HLD, metastatic cholangiocarcinoma ongoing chemotherapy, chronic anemia presented to our ED 12/09 with complaint of painful swelling on the right side of the neck since 2 days ago [employer]OREHOU[employer]. Patient denies any headache or chest pain or shortness of breath. She is being managed for the following: Acute internal jugular vein thrombosis Metastatic cholangiocarcinoma ongoing chemotherapy: Progressive disease noted on the imaging at admission. Patient presented with right-sided neck pain [see above] Admitting CT neck with acute appearing occlusive DVT of the right internal jugular vein measuring up to 10 cm in length. Borderline enlarged right peritracheal with subcentimeter supraclavicular lymph nodes. Admitting CXR with chronic interstitial coarsening, emphysema. Admitting CTA chest with no PE, progressively worsened chronic interstitial lung disease, nonspecific mediastinal and hilar lymphadenopathy, progressively worsened hepatic metastatic disease. Admitting troponin WNL. Admitting EKG with sinus rhythm with no acute ST or T changes noted. Patient has been afebrile, follow admitting urine and blood culture. Patient started on heparin drip, continue with the same. Pt interested in eliquis. Tried to reach out to oncology on-call via phone call and [place] text, awaiting callback. d/w Dr. Ortiz, if port is working, we don't need to take out. Will ask vascular team/RN to assess the port Likely Narcotic induced constipation Abdominal pain Patient on [place]. Patient moved bowel, reports resolution of bowel pain. Continue bowel regimen Complicated UTI: Admitting UA suggestive of UTI, patient started on Rocephin 12/10, continue. Follow urine culture. Other chronic medical conditions: Chronic respiratory failure secondary to pHTN 2/2 interstitial lung disease on 2.5 L oxygen at home, chronic diastolic heart failure, HTN, HLD, chronic anemia, thrombocytopenia --->> continue with/resume home meds as and when appropriate. DVT prophylaxis: Patient on heparin drip Full code Patient's [id number] Mr. Caleb Thomas, contact #[phone]. Admission and Anticipated Discharge Date Admission Date: December 10, 2021 Subjective Patient seen and examined at bedside as a follow-up of acute internal jugular vein thrombosis x right. Patient was lying in bed, on 2 L nasal cannula oxygen, uses 2.5 L all the time at home, reports improving right-sided neck pain, denies fever/chills/sore throat/cough/chest pain/palpitations/belly pain/acute changes in bowel or bladder habits/other review of symptoms. Patient reports eating okay and moving bowels okay. Physical Exam Physical Exam: GENERAL: Alert and oriented x3. NAD, on 2L NC O2. HEENT: No pallor, no icterus. Pupils equal, round and reactive to light. Oral mucosa moist. NECK: No JVD, no neck masses. Rt neck with minimal diffuse swelling, no erythema noted. Rt chest Access port noted, no signs of infection noted. HEART: S1 and S2 heard. Regular rate and rhythm. No murmur, no gallop. RESPIRATORY SYSTEM: Normal AP diameter. No accessory muscle use. No wheezing, no crackles. ABDOMEN: Soft, bowel sounds present, nontender, no distention. CENTRAL NERVOUS SYSTEM: No facial droop. Speech is clear. Obeys simple commands. Moves extremities. EXTREMITIES: No edema, no erythema seen. Results & Data Results & Data ([facility]) Vital Signs (Past 12 Hours) Vital Signs Temp Pulse Resp BP Pulse Ox O2 Del Method O2 Flow Rate 12/10/21 15:31 36.6 C 89 16 110/73 98 Nasal Cannula 3 12/10/21 07:15 Nasal Cannula 2.5 12/10/21 07:18 37.1 C 81 16 121/77 100 Nasal Cannula 3 12/10/21 05:25 Nasal Cannula 3 12/10/21 05:01 36.5 C 89 24 127/77 97 Nasal Cannula 3
[2021-12-10] MEDS: HYDROcodone/ACETAMINOPHEN 10/325 TAB PO PRN (20:21)
[2021-12-10] MEDS: HEPARIN SODIUM/DEXTROSE 25,000 UNITS/500 ML BAG IV SCH (23:08)
[2021-12-11] MEDS: cefTRIAXone SODIUM 2,000 MG in DEXTROSE 5% 50 ML IV SCH (02:10)
[2021-12-11 06:18] LABS: Basophils # (auto) 0.02 K/uL (0-0.2); Basophils % (auto) 0.3 %; Eosinophils % (auto) 4.7 %; Hematocrit (blood only) 30.6 % (34.1-44.9); Hemoglobin 10.1 g/dl (12.0-16.0); Immature Granulocytes # (auto) 0.02 K/uL (0.00-0.02); Immature Granulocytes % (auto) 0.3 %; Lymphocytes # (auto) 1.97 K/uL (1.2-3.4); Lymphocytes % (auto) 31.1 %; Mean Corpuscular Hemoglobin 28.3 pg (25.0-34.0); Mean Corpuscular Volume 85.7 fL (80.0-100.0); Monocytes # (auto) 1.01 K/uL (0.24-0.82); Neutrophils # (auto) 3.01 K/uL (1.4-6.5); Neutrophils % (auto) 47.6 %; Platelet Count 107 K/uL (130-400); RDW Standard Deviation 46.6 fL (36.4-46.3); Red Blood Count 3.57 M/uL (3.93-5.22); White Blood Count 6.33 K/ul (4.8-10.8)
[2021-12-11 06:34] LABS: BUN Creatinine Ratio 22.4 (10-20); Calcium 8.6 mg/dl (8.5-10.1); Creatinine Clr Calc Pharmacy 79.2 ml/min; Est GFR (African American) 102.3 ml/min; Est GFR (Non-African American) 88.3 ml/min; Phosphorus 3.4 mg/dl (2.5-4.9); Potassium 3.6 mmol/L (3.5-5.1)
[2021-12-11 06:42] LABS: Partial Thromboplastin Ratio 1.9
[2021-12-11 06:52] LABS: Partial Thromboplastin Time 53.3 Seconds (21.0-31.0)
[2021-12-11] MEDS: CITALOPRAM 20 MG TAB PO SCH (08:42)
[2021-12-11] MEDS: PANTOprazole 40 MG TAB PO SCH (08:42)
[2021-12-11] MEDS: ROSUVASTATIN CALCIUM 10 MG TAB PO SCH (08:43)
[2021-12-11] MEDS: VERAPAMIL HCL 120 MG TABCR PO SCH (08:43)
[2021-12-11] MEDS: POLYETHYLENE (MIRALAX) 17 GM PACK PO SCH (08:43)
[2021-12-11] MEDS: DOCUSATE SODIUM/SENNA 50/8.6MG TAB PO SCH ×2 (08:43→20:19)
[2021-12-11] MEDS: busPIRone 5 MG TAB PO SCH ×3 (08:43→20:19)
[2021-12-11] MEDS ORDERED: FUROSEMIDE 20 MG TAB PO PRN (09:00)
[2021-12-11] MEDS: ACETAMINOPHEN 325 MG TAB PO PRN (14:47)
[2021-12-11 16:22] LABS: Anion Gap 6.2 (3-11)
--- NOTE | 2021-12-11 16:35 | Hospitalist Progress Note ---
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 Patient denies any headache or chest pain or shortness of breath. She is being managed for the following: Acute internal jugular vein thrombosis Metastatic cholangiocarcinoma ongoing chemotherapy: Progressive disease noted on the imaging at admission. Patient presented with right-sided neck pain [see above] Admitting CT neck with acute appearing occlusive DVT of the right internal jugular vein measuring up to 10 cm in length. Borderline enlarged right peritracheal with subcentimeter supraclavicular lymph nodes. Admitting CXR with chronic interstitial coarsening, emphysema. Admitting CTA chest with no PE, progressively worsened chronic interstitial lung disease, nonspecific mediastinal and hilar lymphadenopathy, progressively worsened hepatic metastatic disease. Admitting troponin WNL. Admitting EKG with sinus rhythm with no acute ST or T changes noted. Patient has been afebrile, follow admitting urine and blood culture. Patient started on heparin drip, continue with the same. Pt interested in eliquis. d/w w/ hematology 12/10. Will consult vascular Sx in AM. I feel assessing the port w/ flushing might dislodge the clot creating complications. Likely Narcotic induced constipation Abdominal pain Patient on [place]. Patient moved bowel, reports resolution of bowel pain. Continue bowel regimen Complicated UTI: Admitting UA suggestive of UTI, patient started on Rocephin 12/10, continue. Follow urine culture. Other chronic medical conditions: Chronic respiratory failure secondary to pHTN 2/2 interstitial lung disease on 2.5 L oxygen at home, chronic diastolic heart failure, HTN, HLD, chronic anemia, thrombocytopenia --->> continue with/resume home meds as and when appropriate. DVT prophylaxis: Patient on heparin drip, eliquis $47/month, will start after vascular consult in AM. Full code Patient's [id number] Mr. Caleb Thomas, contact #[phone]. Admission and Anticipated Discharge Date Admission Date: December 10, 2021 Subjective Patient seen and examined at bedside as a follow-up of acute internal jugular vein thrombosis x right. Patient was lying in bed, on 2 L nasal cannula oxygen, uses 2.5 L all the time at home, reports improving right-sided neck pain, denies fever/chills/sore throat/cough/chest pain/palpitations/belly pain/acute changes in bowel or bladder habits/other review of symptoms. Patient reports eating okay and moving bowels okay. Physical Exam Physical Exam: GENERAL: Alert and oriented x3. NAD, on 2L NC O2. HEENT: No pallor, no icterus. Pupils equal, round and reactive to light. Oral mucosa moist. NECK: No JVD, no neck masses. Rt neck with minimal diffuse swelling, and tenderness, no erythema noted. Rt chest Access port noted, no signs of infection noted. HEART: S1 and S2 heard. Regular rate and rhythm. No murmur, no gallop. RESPIRATORY SYSTEM: Normal AP diameter. No accessory muscle use. No wheezing, no crackles. ABDOMEN: Soft, bowel sounds present, nontender, no distention. CENTRAL NERVOUS SYSTEM: No facial droop. Speech is clear. Obeys simple commands. Moves extremities. EXTREMITIES: No edema, no erythema seen. Results & Data Results & Data ([facility]) Vital Signs (Past 12 Hours) Vital Signs Temp Pulse Resp BP Pulse Ox O2 Del Method O2 Flow Rate 12/11/21 15:30 37.1 C 87 18 114/70 97 Room Air 12/11/21 09:00 Nasal Cannula 2.5 12/11/21 07:53 36.6 C 80 18 116/71 98 Nasal Cannula 2
[2021-12-11] MEDS: HYDROcodone/ACETAMINOPHEN 10/325 TAB PO PRN (20:18)
[2021-12-11] MEDS: POTASSIUM CHLORIDE 10 MEQ TABCR PO SCH (20:20)
[2021-12-12] MEDS: cefTRIAXone SODIUM 2,000 MG in DEXTROSE 5% 50 ML IV SCH (02:16)
[2021-12-12] MEDS: HEPARIN SODIUM/DEXTROSE 25,000 UNITS/500 ML BAG IV SCH (02:19)
[2021-12-12 06:46] LABS: BUN Creatinine Ratio 23.4 (10-20); Calcium 8.7 mg/dl (8.5-10.1); Creatinine Clr Calc Pharmacy 71.8 ml/min; Est GFR (African American) 99.1 ml/min; Est GFR (Non-African American) 85.5 ml/min; Potassium 3.7 mmol/L (3.5-5.1)
[2021-12-12 07:10] LABS: Partial Thromboplastin Ratio 1.9
[2021-12-12 07:29] LABS: Partial Thromboplastin Time 53.5 Seconds (21.0-31.0)
[2021-12-12] MEDS: CITALOPRAM 20 MG TAB PO SCH (08:26)
[2021-12-12] MEDS: PANTOprazole 40 MG TAB PO SCH (08:26)
[2021-12-12] MEDS: ROSUVASTATIN CALCIUM 10 MG TAB PO SCH (08:26)
[2021-12-12] MEDS: DOCUSATE SODIUM/SENNA 50/8.6MG TAB PO SCH ×2 (08:26→20:44)
[2021-12-12] MEDS: POLYETHYLENE (MIRALAX) 17 GM PACK PO SCH (08:26)
[2021-12-12] MEDS: VERAPAMIL HCL 120 MG TABCR PO SCH (08:26)
[2021-12-12] MEDS: busPIRone 5 MG TAB PO SCH ×3 (08:26→20:44)
--- NOTE | 2021-12-12 10:34 | Consultation ---
Date of Consultation December 12, 2021 Assessment & Plan (1) Acute internal jugular vein thrombosis: Pt with R IJ thrombus at her infusaport insertion site. Recommend anticoagulation for this. Apparently her port has not yet been accessed for use since discovery of her thrombus. If her port is not functioning, then she will benefit from having it removed. If it is functioning, then it can remain in place for IV access. Please call if needed. History of Present Illness Reason for Consultation: IJ thrombus Attending Physician: Lida Grant MD History of Present Illness 80 yo f with hx of metastatic cholangiocarcinoma, HTN, hyperlipidemia, GERD, chronic breathing problems on chronic Oxygen, admitted with R neck IJ thrombus, seen in consultation today for same. Pt states she has been undergoing chemo infusions through a R sided infusaport and it was last used about 2 weeks ago. She states it worked fine as far as she knows. She states they don't usually use it for blood draws, but does not know why. Admits R sided neck pain for past few days, but states is improving since admission. Denies CHAUDHARI, fever, chest pain, SOB, abd pain, N/V, rest pain, claudication, other complaints. No hx of DVT in past. Neck CT scan demonstrates R IJ thrombus proximal to infusaport catheter. Allergies Allergy/AdvReac Type Severity Reaction Status Date / Time rifampin Allergy Intermediate Hives Verified 12/10/21 00:34 amoxicillin Allergy Mild Hives Verified 12/10/21 00:34 Home Medications Medication Instructions Recorded Confirmed Type buspirone 10 mg tablet 10 mg PO TID 12/10/19 12/10/21 History citalopram 20 mg tablet 20 mg PO QAM 12/10/19 12/10/21 History esomeprazole magnesium 40 mg 40 mg PO QAM 12/10/19 12/10/21 History capsule,delayed release potassium chloride 10 mEq 10 meq PO 3XWK 12/10/19 12/10/21 History capsule,extended release rosuvastatin 10 mg tablet (Crestor) 10 mg PO QAM 12/10/19 12/10/21 History verapamil 120 mg 24 hr 120 mg PO QAM 12/10/19 12/10/21 History capsule,extended release famotidine 20 mg tablet 20 mg PO DAILY PRN Acid Reflux 12/12/19 12/10/21 History dicyclomine 20 mg tablet 20 mg PO QID PRN Abdominal Pain 03/30/21 12/10/21 History docusate sodium 100 mg tablet 100 mg PO AMHS 03/30/21 12/10/21 History furosemide 20 mg tablet 20 mg PO UD PRN Fluid Retention 03/30/21 12/10/21 History magnesium hydroxide 400 mg/5 mL 15 ml PO DAILY PRN gastric upset 05/28/21 12/10/21 History oral suspension (Milk of Magnesia) polyethylene glycol 3350 17 17 g PO DAILY 05/28/21 12/10/21 History gram/dose oral powder (Miralax) sennosides 8.6 mg-docusate sodium 1 - 2 tab-cap PO BID PRN 05/28/21 12/10/21 Rx 50 mg tablet (Senokot-S) constipation #60 tabs acetaminophen 500 mg tablet 500 mg PO Q6H PRN Pain 12/10/21 12/10/21 History (Tylenol Extra Strength) albuterol sulfate 90 mcg/actuation 2 puff inhalation Q6 PRN Cough 12/10/21 12/10/21 History aerosol inhaler apixaban 5 mg (74 tabs) tablets in 5 mg PO BID #74 ea 12/10/21 Rx a dose pack (Eliquis) conjugated estrogens 0.625 mg/gram 1 applic vaginal 2XWK 12/10/21 12/10/21 History vaginal cream (Premarin) hydrocodone 10 mg-acetaminophen 1 tab PO Q8 PRN Pain 12/10/21 12/10/21 History 325 mg tablet ibuprofen 200 mg tablet 200 mg PO Q4 PRN Pain 12/10/21 12/10/21 History lidocaine-prilocaine 2.5 %-2.5 % 1 applic topical DIRECTED 12/10/21 12/10/21 History topical cream magnesium oxide 400 mg (241.3 mg 400 mg PO QAM 12/10/21 12/10/21 History magnesium) tablet naloxone 4 mg/actuation nasal spray 1 spray intranasal DIRECTED 12/10/21 12/10/21 History nystatin 100,000 unit/gram topical 1 applic topical TID 12/10/21 12/10/21 History powder (Nyamyc) ondansetron HCl 8 mg tablet 8 mg PO Q8 PRN Nausea 12/10/21 12/10/21 History prochlorperazine maleate 10 mg 10 mg PO Q6 PRN Nausea 12/10/21 12/10/21 History tablet sennosides 8.6 mg-docusate sodium 1 tab-cap PO AMHS 12/10/21 12/10/21 History 50 mg tablet (Senna-S) triamcinolone acetonide 0.1 % 1 applic topical BID PRN flare up 12/10/21 12/10/21 History topical cream Patient History Medical History CAD (coronary artery disease) non-obstructive Cholangiocarcinoma CURRENT DX Depression GERD (gastroesophageal reflux disease) HTN (hypertension) Hypersensitivity pneumonitis 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 REASON FOR PESSARY Sleep apnea CPAP Urinary frequency Surgical History H/O lymph node biopsy History of cardiac cath X2 (most recent 2011), no stents History of colonoscopy History of esophagogastroduodenoscopy (EGD) History of lung biopsy 04/2018 (showed scar tissue/hypersensitivity pneumonitis) History of repair of rotator cuff right History of tooth extraction History of total knee replacement R/L History of total shoulder replacement Left Reverse Total Shoulder Arthroplasty S/P arthroscopy of left shoulder X2 Family History Sister Diabetes Other No family history of adverse response to anesthesia Social History Smoking Status: Never smoker Second Hand Exposure: No; Hx Alcohol Use: No Hx Substance Use: No Preferred Language: Latvian Communication Ability: Effective 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 Beliefs That Will Affect Care: Pentecostalism Pentecostalism Beliefs: SABIANISM , Spiritual and Cultural marital status: Current Living Situation: Spouse and Family Current Living Situation Comment: Lives with and family friend who takes care of Other Information That Helps Us Care for You: No Feels Safe at Home: Yes Safety Concerns: Feels Safe At This Time Assistive Devices: Cane and Walker Review of Systems Review of Systems: All systems reviewed & are unremarkable except as noted in HPI & below Physical Exam Constitutional: WD/WN, vitals as above cooperative and comfortable; not in distress Neck: trachea midline R neck mild edema and tenderness, no erythema Respiratory: normal respiratory effort; no respiratory distress Auscul tation: lungs clear to auscultation bilaterally and + diminished lung sounds Cardiovascular: Rate/Rhythm: regular rate and regular rhythm Vessels: femoral pulses present, posterior tibial pulses present, dorsalis pedis pulses present, brachial pulses present and radial pulses present; + abnormal peripheral pulses Extremities: normal capillary refill; no edema Gastrointestinal (Abdomen): Inspection/Auscultation: abdomen normal to inspection and normal bowel sounds Percussion/Palpation: abdomen soft; abdomen nontender Musculoskeletal: no cyanosis or clubbing, extremities motor strength 5/5 Skin: no rashes, warm and dry Neurologic: moves all extremities and awake; no focal motor deficits and not confused Psychiatric: Orientation: alert and oriented x 3 Affect: + anxious affect Results & Data ([facility]) Vital Signs (Past 12 Hours) Vital Signs Temp Pulse Resp BP Pulse Ox O2 Del Method O2 Flow Rate 12/12/21 08:00 Nasal Cannula 2 12/12/21 07:43 36.9 C 77 18 130/78 98 Nasal Cannula 2 12/12/21 00:19 Nasal Cannula 2.5
[2021-12-12] MEDS: ACETAMINOPHEN 325 MG TAB PO PRN (13:20)
--- NOTE | 2021-12-12 17:32 | Hospitalist Progress Note ---
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 Patient denies any headache or chest pain or shortness of breath. She is being managed for the following: Acute internal jugular vein thrombosis Metastatic cholangiocarcinoma ongoing chemotherapy: Progressive disease noted on the imaging at admission. Patient presented with right-sided neck pain [see above] Admitting CT neck with acute appearing occlusive DVT of the right internal jugular vein measuring up to 10 cm in length. Borderline enlarged right peritracheal with subcentimeter supraclavicular lymph nodes. Admitting CXR with chronic interstitial coarsening, emphysema. Admitting CTA chest with no PE, progressively worsened chronic interstitial lung disease, nonspecific mediastinal and hilar lymphadenopathy, progressively worsened hepatic metastatic disease. Admitting troponin WNL. Admitting EKG with sinus rhythm with no acute ST or T changes noted. Patient has been afebrile, follow admitting urine and blood culture. Patient started on heparin drip, continue with the same. Pt interested in eliquis. eliq cost of $47/month. d/w w/ hematology 12/10. Vascular Sx has evaluated, recommended to check whether the port is functioning or not, reached out to them how to do that, awaiting reply. I feel assessing the port w/ flushing might dislodge the clot creating complications. Will need more info from vascular Sx. Likely Narcotic induced constipation Abdominal pain Patient on [place]. Patient moved bowel, reports resolution of bowel pain. Continue bowel regimen Complicated UTI: Admitting UA suggestive of UTI, patient started on Rocephin 1 , continue. Follow urine culture. Other chronic medical conditions: Chronic respiratory failure secondary to pHTN 2/2 interstitial lung disease on 2.5 L oxygen at home, chronic diastolic heart failure, HTN, HLD, chronic anemia, thrombocytopenia --->> continue with/resume home meds as and when appropriate. DVT prophylaxis: Patient on heparin drip, eliquis $47/month, will likely start tomorrow. Full code Patient's [id number] Mr. Caleb Thomas, contact #[phone]. PT/OT, CM to assist w/ DC plan, likely DC dustin. Admission and Anticipated Discharge Date Admission Date: December 10, 2021 Subjective Patient seen and examined at bedside as a follow-up of acute internal jugular vein thrombosis x right. Patient was lying in bed, on 2 L nasal cannula oxygen, uses 2.5 L all the time at home, reports improving right-sided neck pain, denies fever/chills/sore throat/cough/chest pain/palpitations/belly pain/acute changes in bowel or bladder habits/other review of symptoms. Patient reports eating okay and moving bowels okay. Pt is would like to stay today due to not having enough support at home and not feeling strong enough. PT/OT consulted, CM to assist. Physical Exam Physical Exam: GENERAL: Alert and oriented x3. NAD, on 2L NC O2. HEENT: No pallor, no icterus. Pupils equal, round and reactive to light. Oral mucosa moist. NECK: No JVD, no neck masses. Rt neck with minimal diffuse swelling, and tenderness, no erythema noted. Rt chest Access port noted, no signs of infection noted. HEART: S1 and S2 heard. Regular rate and rhythm. No murmur, no gallop. RESPIRATORY SYSTEM: Normal AP diameter. No accessory muscle use. No wheezing, no crackles. ABDOMEN: Soft, bowel sounds present, nontender, no distention. CENTRAL NERVOUS SYSTEM: No facial droop. Speech is clear. Obeys simple commands. Moves extremities. EXTREMITIES: No edema, no erythema seen. Results & Data Results & Data ([facility]) Vital Signs (Past 12 Hours) Vital Signs Temp Pulse Resp BP Pulse Ox O2 Del Method O2 Flow Rate 12/12/21 15:42 36.4 C L 81 18 122/76 98 Nasal Cannula 2 12/12/21 08:00 Nasal Cannula 2 12/12/21 07:43 36.9 C 77 18 130/78 98 Nasal Cannula 2
[2021-12-12] MEDS: HYDROcodone/ACETAMINOPHEN 10/325 TAB PO PRN (20:44)
[2021-12-12] MEDS: POTASSIUM CHLORIDE 10 MEQ TABCR PO SCH (20:44)
[2021-12-13] MEDS: cefTRIAXone SODIUM 2,000 MG in DEXTROSE 5% 50 ML IV SCH (02:17)
[2021-12-13] MEDS: HEPARIN SODIUM/DEXTROSE 25,000 UNITS/500 ML BAG IV SCH (04:12)
[2021-12-13 06:28] LABS: Basophils # (auto) 0.04 K/uL (0-0.2); Basophils % (auto) 0.6 %; Eosinophils # (auto) 0.36 K/uL (0-0.50); Eosinophils % (auto) 5.5 %; Hematocrit (blood only) 30.9 % (34.1-44.9); Hemoglobin 10.2 g/dl (12.0-16.0); Immature Granulocytes # (auto) 0.02 K/uL (0.00-0.02); Immature Granulocytes % (auto) 0.3 %; Lymphocytes # (auto) 1.79 K/uL (1.2-3.4); Lymphocytes % (auto) 27.6 %; Mean Corpuscular Hemoglobin 28.3 pg (25.0-34.0); Mean Corpuscular Volume 85.6 fL (80.0-100.0); Mean Platelet Volume 8.5 fL (9.4-12.3); Monocytes # (auto) 0.98 K/uL (0.24-0.82); Monocytes % (auto) 15.1 %; Neutrophils % (auto) 50.9 %; Platelet Count 125 K/uL (130-400); RDW Coefficient of Variation 14.8 % (11.5-14.5); RDW Standard Deviation 46.6 fL (36.4-46.3); Red Blood Count 3.61 M/uL (3.93-5.22); White Blood Count 6.49 K/ul (4.8-10.8)
[2021-12-13 07:10] LABS: Partial Thromboplastin Ratio 1.8
[2021-12-13] MEDS: busPIRone 5 MG TAB PO SCH ×2 (09:42→14:01)
[2021-12-13] MEDS: PANTOprazole 40 MG TAB PO SCH (09:43)
[2021-12-13] MEDS: DOCUSATE SODIUM/SENNA 50/8.6MG TAB PO SCH (09:43)
[2021-12-13] MEDS: CITALOPRAM 20 MG TAB PO SCH (09:43)
[2021-12-13] MEDS: VERAPAMIL HCL 120 MG TABCR PO SCH (09:44)
[2021-12-13] MEDS: ROSUVASTATIN CALCIUM 10 MG TAB PO SCH (09:44)
[2021-12-13] MEDS: POLYETHYLENE (MIRALAX) 17 GM PACK PO SCH (09:44)
--- NOTE | 2021-12-13 10:05 | Communication Note ---
Date of Service: December 13, 2021 The R IJ thrombus is superior to the infusaport catheter access point and well superior to the tip of the catheter. There is minimal risk of dislodging the thrombus by using the port. PLEASE USE THE PORT FOR ACCESS. Please call if the port is not functioning.
[2021-12-13] MEDS ORDERED: APIXABAN 5 MG TABLET PO ONE (11:15)
--- NOTE | 2021-12-13 18:21 | Discharge Summary ---
Date of Service December 13, 2021 Admission HPI Per Admitting Provider History obtained from patient, family, and records. 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 Last confinement December 2019 under orthopedic service for elective left shoulder surgery. 2 days ago, patient noted painful swelling on the right side of the neck. No headache. No chest pain. Usual shortness of breath on exertion as per patient. No unusual fluid retention. Transient abdominal discomfort. Patient constipated the last few days. Denies dysuria. Denies fever, chills. No recent trauma. Patient directed to ER by outpatient provider. IV heparin initiated for right IJV thrombus on CT. IV ceftriaxone administered for possible UTI. Medical History as above Surgical History : Knee surgeries, partial hysterectomy, cataract surgeries, a port placement, shoulder surgery, thorascopic biopsy Family History : Heart disease, CVA, uterine cancer Personal/Social history : Non-smoker, occasional EtOH intake, retired businesswoman Admission Exam Per Admitting Provider GENERAL: Comfortable, slightly anxious, no respiratory distress SKIN: Pallor, warm HEENT: Bespectacled, pale palpebral conjunctivae, no ptosis, dry buccal mucosa, nasal cannula in place NECK : Some limitation in motion, right cervical tenderness CHEST : CTA, no tenderness HEART : RRR, no obvious murmurs ABDOMEN: Some distention, nontender EXTREMITIES : Minimal LE swelling, no LE tenderness, no other conspicuous deformities noted NEUROLOGIC : Coherent, no facial asymmetry, no other gross focality Principal Diagnosis Right internal jugular vein thrombosis Discharge Exam Constitutional WD/WN, vitals as above Respiratory normal respiratory effort, lungs clear to auscultation Cardiovascular Rate/Rhythm: regular rate and regular rhythm Vessels: normal peripheral pulses Extremities: no edema Chest (Breasts) Chest: + vascular access device or port (Right chest) Gastrointestinal (Abdomen) Percussion/Palpation: abdomen soft; abdomen nontender Skin no rashes, warm and dry Neurologic no focal motor deficits Psychiatric A+Ox3, euthymic affect Discharge Data Allergies Allergy/AdvReac Type Severity Reaction Status Date / Time rifampin Allergy Intermediate Hives Verified 10/08/22 00:34 amoxicillin Allergy Mild Hives Verified 12/10/21 00:34 Consultations 12/11/21 16:34 Consult Vascular Surgery Routine Ordered Studies Impressions Soft Tissue Neck CT 12/09/21 17:49 CT soft tissue neck w con HISTORY: 80 years-old Female R neck swelling/pain, on chemo acute pain and swelling of the right neck. COMPARISON: CT cervical spine 12/07/2015, CTA chest 06/18/2020 TECHNIQUE: Multiple axial CT images of the soft tissues of the neck were obtained following the intravenous ministration of 91 mL Optiray 350. A dose lowering technique was used consistent with the principals of ELMER. FINDINGS: There is a large acute appearing expansile occlusive thrombus within the right internal jugular vein extending for a length of 10 cm. The thrombus is located superior to the level of the right IJ is a port catheter. Moderate surrounding deep tissue edema results in local mass effect the adjacent soft tissues. Mildly heterogeneous thyroid with subcentimeter right-sided thyroid nodule. Parapharyngeal fat planes are symmetric and well-maintained. Parotid and submandibular glands are within normal limits. The vallecula, glottis and subglottic airway are unremarkable. Borderline enlarged 10 mm right paratracheal lymph node on image 312 series 3. Subcentimeter supraclavicular lymph nodes measure up to 8 mm on the right. Prior bilateral lens repair. No acute process of the imaged intracranial structures. Streak artifact from left shoulder arthroplasty. Right upper lobe predominant reticular and groundglass opacities are suggestive of fibrosis. No acute fracture or destructive bone lesion. IMPRESSION: 1. Acute appearing occlusive deep venous thrombus of the right internal jugular vein measures up to 10 cm in length. 2. Borderline enlarged right peritracheal with subcentimeter supraclavicular lymph nodes. ACT 112: Negative or not required by law. The above report was generated using voice recognition software. It may contain grammatical, syntax or spelling errors. Electronically signed by: Maxim Arias M.D. 12/09/2021 8:20 PM Chest X-Ray 12/09/21 17:56 XR chest 1V portable HISTORY: 80 years-old Female sob . Acute shortness of breath COMPARISON: Chest radiograph 04/18/2021 TECHNIQUE: Portable AP view of the chest FINDINGS: Right IJ Snsaoz-n-Iuyn catheter distal tip terminates in the expected location of the right atrium. Cardiac silhouette is enlarged. Emphysema with chronic interstitial coarsening. Pulmonary vascular congestion with left greater than right reticular interstitial opacities. No pneumothorax. Blunting of the costophrenic angles with mild right hemidiaphragmatic elevation. Degenerative changes of the right shoulder and spine. Reverse left shoulder total joint arthroplasty. IMPRESSION: 1. Emphysema with chronic interstitial coarsening. 2. Cardiomegaly with pulmonary vascular congestion and possible asymmetric pulmonary edema. ACT 112: Negative or not required by law. The above report was generated using voice recognition software. It may contain grammatical, syntax or spelling errors. Electronically signed by: Maxim Arias M.D. 12/09/2021 7:08 PM Chest CTA 12/09/21 20:53 CT angio chest PE protocol CT DOSE: 558.03 mGy.cm HISTORY: 80 years-old Female with PE. Acute thrombus of the right internal jugular vein TECHNIQUE: Multiple CTA images of the chest were obtained after the intravenous administration of Optiray. Coronal and sagittal MIPS were obtained from the axial data set and were submitted for review. All measurements were obtained according to NASCET criteria. A dose lowering technique was utilized adhering to the principles of ALARA. COMPARISON: Soft tissue neck of same day, CT abdomen and pelvis 05/28/2021. FINDINGS: CTA: Moderate cardiomegaly. Moderate coronary artery calcifications. Atherosclerosis of the thoracic aorta with patency of the imaged great vessels. Dilated pulmonary arteries suggestive of pulmonary arterial hypertension. No pulmonary emboli are identified. Acute appearing occlusive thrombus of the right internal jugular vein with adjacent inflammatory stranding redemonstrated. A portion of the clot extends along the right IJ Fulzuz-o-Wlnk catheter. The distal tip of the catheter is present within the inferior aspect of the SVC. CT CHEST: Unremarkable thyroid. Mildly enlarged paratracheal and subcarinal lymph nodes measure up to approximately 1.4 cm. Mild right hemidiaphragmatic elevation. No pneumothorax, pleural effusion or overt pulmonary edema. Bilateral subpleural predominant reticulation with intermixed groundglass opacities and traction bronchiectasis appears progressed from the 06/18/2020 exam. No significant honeycombing. Calcified granuloma of the inferior segment lingula. There are no suspicious pulmonary nodules or masses identified. The central airways are patent. Contrast noted within the bilateral renal collecting systems. Mild nonspecific distal esophageal wall thickening. Progressively worsened multifocal hepatic metastasis, largest lesion within the right hepatic lobe measuring 6.6 cm, previously 4.8 cm. Unremarkable soft tissues. Left shoulder arthroplasty. Degenerative changes of the shoulders and spine. No destructive bone lesions are identified. IMPRESSION: 1. Partially imaged acute occlusive thrombus of the right internal jugular vein tracking along the Ifpztb-h-Vygm catheter redemonstrated. 2. Cardiomegaly with evidence of pulmonary arterial hypertension. No pulmonary emboli identified. 3. 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 4. Nonspecific mediastinal and hilar lymphadenopathy. 5. Progressively worsened hepatic metastatic disease. ACT 112: Negative or not required by law. The above report was generated using voice recognition software. It may contain grammatical, syntax or spelling errors. Electronically signed by: Mxaim Arias M.D. 12/09/2021 10:23 PM Hospital Course (1) Acute internal jugular vein thrombosis: Plan 80-year-old lady with PMH of chronic respiratory failure secondary to pulmonary hypertension secondary to interstitial lung disease [hypersensitivity pneumonitis] on 2.5 L oxygen at home, VANESSA on CPAP, chronic diastolic heart failure [2020 TTE with EF of 55 to 59%], valvular heart disease [mild MR/TR], nonobstructive CAD, HTN, HLD, metastatic cholangiocarcinoma ongoing chemotherapy, chronic anemia presented to the ED 12/09 with complaint of painful swelling on the right side of the neck since 2 days [employer]. She was managed for the following: Acute internal jugular vein thrombosis Metastatic cholangiocarcinoma ongoing chemotherapy: Progressive disease noted on the imaging at admission. Admitting CT neck with acute appearing occlusive DVT of the right internal jugular vein measuring up to 10 cm in length. Borderline enlarged right peritracheal with subcentimeter supraclavicular lymph nodes. Admitting CTA chest partially imaged acute occlusive thrombus of the right internal jugular vein tracking along the Uuttob-w-Bxuo catheter. No PE, progressively worsened chronic interstitial lung disease, nonspecific mediastinal and hilar lymphadenopathy, progressively worsened hepatic metastatic disease. Vascular surgery consulted --> The R IJ thrombus is superior to the infusaport catheter access point and well superior to the tip of the catheter. There is minimal risk of dislodging the thrombus by using the port. IV team accessed and flushed port on day of discharge. No issues with port function. Patient was started on IV heparin and transitioned to Eliquis. Patient's oncologist notified of admission on 12/10. Constipation Likely narcotic induced On bowel regimen with improvement UTI ruled out Admitting UA suggestive of UTI, patient started on empiric Rocephin. Urine culture showed no bacterial growth. No further antibiotics indicated. Other chronic medical conditions: Chronic respiratory failure secondary to pHTN 2/2 interstitial lung disease on 2.5 L oxygen at home, chronic diastolic heart failure, HTN, HLD, chronic anemia, thrombocytopenia, mood disorder. There were no changes in home medications. Total Time Total Time Spent Total Time Spent (In Minutes): 35 Discharge Plan Discharge Items Patient Disposition: Home - Home Health Services Reason For Visit: Right Neck Pain Discharge Diagnosis: Right Internal Jugular Thrombosis (blood clot around the catheter of your port) Activity: Resume your previous activity Activity Comment: as per PT recommendations Non-emergency contact: Primary Care Provider and Oncologist Call non-emergency contact if: you have any medication questions, your symptoms worsen, your pain is not controlled and you have a fever Follow-up/Referrals: Jessika Corea, [Primary Care Provider] - 12/16/21 11:10 am (Date & Time 12/16/2021 11:10 Isak Corea, [facility] ) Diet: Heart Healthy Addtl Attending Provider Instructions: You came to the hospital for evaluation of right-sided neck pain. You were found to have a blood clot in your internal jugular vein and around your port catheter. You were treated with an IV blood thinner and will be discharged on an oral blood thinner, Eliquis. Take Eliquis 10mg (two 5mg tablets) twice daily until 12/19 and then start taking Eliquis 5mg (one 5mg tablet) twice daily on 12/20 Avoid NSAIDS (Motrin, ibuprofen, Advil, Aleve) while taking Eliquis A follow-up appointment has been made for you with your PCP and please keep previously scheduled appointments with your oncologist. Your oncologist has been notified of your hospital admission and the office will be reaching out to reschedule your next treatment. Therapy has also been arranged for you through home health and you will remain established with [facility]. It was a pleasure take care of you. If you need to reach a member of the [facility] hospitalist team at [facility], please call [phone]. GUI Golden Pending Studies at Discharge: No Stand-Alone Forms: My [facility], Opioid Pain Management, Smoking Cessation Medications and DC Order Prescriptions: New Eliquis 5 mg (74 tabs) tablets,dose pack 5 mg PO BID Qty: 74 0RF Rx Instructions: take 10 mg twice a day for 7 days followed by 5 mg twice a day. Continued buspirone 10 mg tablet 10 mg PO TID citalopram 20 mg tablet 20 mg PO QAM esomeprazole magnesium 40 mg capsule,delayed release(DR/EC) 40 mg PO QAM potassium chloride 10 mEq capsule, extended release 10 meq PO 3XWK Rx Instructions: Takes Sun, Sun, and Sunday rosuvastatin [Crestor] 10 mg tablet 10 mg PO QAM verapamil 120 mg capsule,ext rel. pellets 24 hr 120 mg PO QAM famotidine 20 mg Tablet 20 mg PO DAILY PRN (Reason: Acid Reflux) magnesium hydroxide [Milk of Magnesia] 400 mg/5 mL Suspension 15 ml PO DAILY PRN (Reason: gastric upset) polyethylene glycol 3350 [Miralax] 17 gram/dose Powder 17 g PO DAILY sennosides-docusate sodium [Senokot-S] 8.6-50 mg tablet 1 - 2 tab-cap PO BID PRN (Reason: constipation) Qty: 60 2RF docusate sodium 100 mg Tablet 100 mg PO AMHS dicyclomine 20 mg Tablet 20 mg PO QID PRN (Reason: Abdominal Pain) furosemide 20 mg Tablet 20 mg PO UD PRN (Reason: Fluid Retention) Rx Instructions: MAY TAKE 1 TIME PER WEEK ondansetron HCl 8 mg tablet 8 mg PO Q8 PRN (Reason: Nausea) hydrocodone-acetaminophen 10-325 mg tablet 1 tab PO Q8 PRN (Reason: Pain) magnesium oxide 400 mg (241.3 mg magnesium) tablet 400 mg PO QAM Premarin 0.625 mg/gram cream 1 applic vaginal 2XWK Rx Instructions: 0.5 g mon & thur only nystatin [Nyamyc] 100,000 unit/gram powder 1 applic TOPICAL TID sennosides-docusate sodium [Senna-S] 8.6-50 mg Tablet 1 tab-cap PO AMHS Rx Instructions: 1-2 caps bid prn constipation prochlorperazine maleate 10 mg tablet 10 mg PO Q6 PRN (Reason: Nausea) acetaminophen [Tylenol Extra Strength] 500 mg Tablet 500 mg PO Q6H PRN (Reason: Pain) triamcinolone acetonide 0.1 % Cream 1 applic TOPICAL BID PRN (Reason: flare up) lidocaine-prilocaine 2.5-2.5 % cream 1 applic topical DIRECTED Rx Instructions: apply to skin over mediport & cover 1 hr prior to accessing. albuterol sulfate 90 mcg/actuation HFA aerosol inhaler 2 puff INHALATION Q6 PRN (Reason: Cough) naloxone 4 mg/actuation spray,non-aerosol 1 spray INTRANASAL DIRECTED Rx Instructions: suspected opiod od Discontinued ibuprofen 200 mg Tablet 200 mg PO Q4 PRN (Reason: Pain) Discharge Orders: Discharge Order (Routine); Ordered 12/13/21 Ordered By: Bernice Campo/Other Patient Handouts: ED Deep Vein Thrombosis (DVT) Admission Data Admit Date/Time: 12/10/21 01:37 Attending Provider: Lida Grant Admit Provider: Jeanmarie Soto Primary Care Provider: Jessika Corea Other Providers: Jeanmarie Soto ; [facility] ; Monroe Ortiz Other Interventions: Discharge Summary Assessment (RN) Last Done: 12/13/21 15:06 Supervising Physician Co-Signing Physician Notes 80-year-old lady with right internal jugular vein thrombosis and right chest a port was treated in the hospital initially with heparin drip then transition to Eliquis. A port was evaluated by vascular team and assessed by IV team per vascular recommendation and was functional hence does not need to be removed. Patient to continue her bowel regimen to avoid narcotic induced constipation. Urine culture did not grow anything, hence UTI ruled out, antibiotics stopped. Upon examination, patient on 2 L nasal cannula oxygen, heart/lung/abdomen examination WNL, rest of the examination as above. I have seen and examined the patient and have discussed the case with the provider above. I agree with the assessment and plan as stated. Home Health Attestation I certify that this patient is under my care and that I, or a physicians care team assistant working with me, had a face to-face encounter that meets the home health [id number] encounter requirements with this patient. The encounter with the patient was in whole, or in part, for the following medical condition, which is the primary reason for home health care (list medical condition): I certify that, based on my findings, the following services are medically necessary home health services: My clinical findings support the need for the above services because: Further, I certify that my clinical findings support that this patient is homebound (i.e. absences from home require considerable and taxing effort and are for medical reasons or [employer] services or infrequently or of short duration when for other reasons) because: Certification for Home Health Services: Based on the above findings, I certify that this patient is confined to the home and needs intermittent shelter care, physical therapy and/or speech therapy or continues to need occupational therapy. The patient is under my care, and I have initiated the establishment of the plan of care. This patient will be followed by a physician who will periodically review the plan of care.
== END 2021-12-13 16:37 | disposition home health service (06) | DRG 300 ==
LOC: ED 16:54 → 3E 12-10 01:37
DX: I27.20 Pulmonary hypertension, unspecified; C22.1 Intrahepatic bile duct carcinoma; Z95.828 Presence of other vascular implants and grafts; I34.1 Nonrheumatic mitral (valve) prolapse; Z96.612 Presence of left artificial shoulder joint; Y92.009 Unspecified place in unspecified non-institutional (private) residence as the place of occurrence of the external cause; T40.605A Adverse effect of unspecified narcotics, initial encounter; N39.0 Urinary tract infection, site not specified; I25.10 Atherosclerotic heart disease of native coronary artery without angina pectoris; K21.9 Gastro-esophageal reflux disease without esophagitis; Z88.1 Allergy status to other antibiotic agents; I82.C11 Acute embolism and thrombosis of right internal jugular vein; I50.32 Chronic diastolic (congestive) heart failure; J96.10 Chronic respiratory failure, unspecified whether with hypoxia or hypercapnia; K59.03 Drug induced constipation

== ENCOUNTER 2021-12-14 18:16 | Observation (INO) ==
[2021-12-14 19:13] LABS: Basophils # (auto) 0.03 K/uL (0-0.2); Basophils % (auto) 0.4 %; Eosinophils # (auto) 0.27 K/uL (0-0.50); Eosinophils % (auto) 3.3 %; Hematocrit (blood only) 33.2 % (34.1-44.9); Hemoglobin 10.8 g/dl (12.0-16.0); Immature Granulocytes # (auto) 0.02 K/uL (0.00-0.02); Immature Granulocytes % (auto) 0.2 %; Lymphocytes # (auto) 1.65 K/uL (1.2-3.4); Lymphocytes % (auto) 20.3 %; Mean Corpuscular Hemoglobin 28.1 pg (25.0-34.0); Mean Corpuscular Hgb Conc 32.5 g/dL (32.0-36.0); Mean Corpuscular Volume 86.5 fL (80.0-100.0); Mean Platelet Volume 8.2 fL (9.4-12.3); Monocytes # (auto) 1.26 K/uL (0.24-0.82); Monocytes % (auto) 15.5 %; Neutrophils # (auto) 4.89 K/uL (1.4-6.5); Neutrophils % (auto) 60.3 %; Platelet Count 158 K/uL (130-400); RDW Standard Deviation 47.1 fL (36.4-46.3); Red Blood Count 3.84 M/uL (3.93-5.22); White Blood Count 8.12 K/ul (4.8-10.8)
[2021-12-14 19:26] LABS: INR 1.3 (0.9-1.1); Partial Thromboplastin Time 26.6 Seconds (21.0-31.0)
--- NOTE | 2021-12-14 19:30 | XRay Report ---
XR chest 2V PA/lateral CLINICAL HISTORY: Chest Pain TECHNIQUE: 2 views of the chest were obtained. Comparison: Comparison is made to chest radiograph 12/09/2021 and CTA chest 12/09/2021 FINDINGS: A port catheter is seen. Left reverse shoulder arthroplasty is seen. Cardiomegaly is noted. Reticular interstitial opacities are seen. No evidence of pleural effusion or pneumothorax. IMPRESSION: Stable cardiomegaly and interstitial disease. No acute abnormality is seen. ACT 112: Negative or not required by law. Electronically signed by: Juan Skinner M.D. 12/14/2021 7:29 PM
[2021-12-14 19:43] LABS: Alanine Aminotransferase 39 U/L (7-52); Albumin Globulin Ratio 1.1 (0.9-2); Alkaline Phosphatase 131 U/L (34-104); Anion Gap 7 (3-11); Aspartate Aminotransferase 47 U/L (13-39); BUN Creatinine Ratio 19.4 (10-20); Bilirubin,Total 0.5 mg/dl (0.2-1.0); Blood Urea Nitrogen 14 mg/dl (6-23); Calcium 9.7 mg/dl (8.5-10.1); Carbon Dioxide 27 mmol/L (21-32); Chloride 100 mmol/L (98-107); Est GFR (Non-African American) 80.2 ml/min; Globulin 3.5 gm/dl (2.5-4.0); Glucose 114 mg/dl (70-99(Fasting)); Potassium 4.5 mmol/L (3.5-5.1); Sodium 134 mmol/L (136-145); Total Protein 7.5 gm/dl (6.0-8.3)
[2021-12-14 20:09] LABS: Troponin I High Sensitivity 7.1 pg/ml (0-14)
[2021-12-14] MEDS ORDERED: APIXABAN 5 MG TABLET PO STA (21:26)
[2021-12-14] MEDS ORDERED: TRIAMCINOLONE ACET 0.1% CR 15 GM TUBE TOP PRN (23:37)
[2021-12-14] MEDS ORDERED: LIDOCAINE/PRILOCAINE 2.5% EA CRM EXT PRN (23:37)
[2021-12-14] MEDS ORDERED: ACETAMINOPHEN 325 MG TAB PO PRN (23:37)
[2021-12-14] MEDS ORDERED: MAGNESIUM HYDROXIDE SUSP 30 ML UDC PO PRN (23:37)
[2021-12-14] MEDS ORDERED: FUROSEMIDE 20 MG TAB PO PRN (23:37)
[2021-12-14] MEDS ORDERED: HYDROcodone/ACETAMINOPHEN 10/325 TAB PO PRN (23:37)
[2021-12-14] MEDS ORDERED: FAMOTIDINE 20 MG TAB PO PRN (23:37)
[2021-12-14] MEDS ORDERED: SODIUM CHLORIDE 0.9% 1000ML 1,000 ML IV SCH (23:37)
[2021-12-14] MEDS ORDERED: NALOXONE NASAL SPRAY 4 MG ER HOMEPACK SCH (23:37)
[2021-12-14] MEDS ORDERED: ACETAMINOPHEN 500 MG TAB PO PRN (23:37)
[2021-12-14] MEDS ORDERED: POLYETHYLENE (MIRALAX) 17 GM PACK PO PRN (23:37)
[2021-12-14] MEDS ORDERED: ALBUTEROL HFA 8 GM INHALER INH PRN (23:37)
[2021-12-14] MEDS ORDERED: NITROGLYCERIN SL 0.4 MG/TAB TAB SL PRN (23:37)
[2021-12-14] MEDS ORDERED: DICYCLOMINE HCL 20 MG TAB PO PRN (23:37)
[2021-12-14] MEDS ORDERED: METOPROLOL TARTRATE 1 MG/ML VIAL IV PRN (23:37)
[2021-12-14] MEDS ORDERED: DOCUSATE SODIUM/SENNA 50/8.6MG TAB PO PRN (23:37)
--- NOTE | 2021-12-14 23:38 | Emergency Department Note ---
History of Present Illness General Chief Complaint: Tachycardia Stated Complaint: BLOOD CLOT, INCREASE HEART RATE Time Seen by Provider: 12/14/21 19:28 History of Present Illness Provider Complaint: + palpitations Onset (ago): 1 day(s) Duration: + Constant Current Pain Intensity: 0 Context: + occurred during rest Arrhythmia history: + on anti-coagulants (eliquis) Associated symptoms: no chest pain, no shortness of breath, no syncope, no near- syncope, no nausea, no vomiting, no diaphoresis or no cough Home Medications Medication Instructions Recorded Confirmed Type buspirone 10 mg tablet 10 mg PO TID 12/10/19 12/14/21 History citalopram 20 mg tablet 20 mg PO QAM 12/10/19 12/14/21 History esomeprazole magnesium 40 mg 40 mg PO QAM 12/10/19 12/14/21 History capsule,delayed release potassium chloride 10 mEq 10 meq PO 3XWK 12/10/19 12/14/21 History capsule,extended release rosuvastatin 10 mg tablet (Crestor) 10 mg PO QAM 12/10/19 12/14/21 History verapamil 120 mg 24 hr 120 mg PO QAM 12/10/19 12/14/21 History capsule,extended release famotidine 20 mg tablet 20 mg PO DAILY PRN Acid Reflux 12/12/19 12/14/21 History dicyclomine 20 mg tablet 20 mg PO QID PRN Abdominal Pain 03/30/21 12/14/21 History docusate sodium 100 mg tablet 100 mg PO AMHS 03/30/21 12/14/21 History furosemide 20 mg tablet 20 mg PO UD PRN Fluid Retention 03/30/21 12/14/21 History magnesium hydroxide 400 mg/5 mL 15 ml PO DAILY PRN gastric upset 05/28/21 12/14/21 History oral suspension (Milk of Magnesia) polyethylene glycol 3350 17 17 g PO DAILY 05/28/21 12/14/21 History gram/dose oral powder (Miralax) sennosides 8.6 mg-docusate sodium 1 - 2 tab-cap PO BID PRN 05/28/21 12/14/21 Rx 50 mg tablet (Senokot-S) constipation #60 tabs acetaminophen 500 mg tablet 500 mg PO Q6H PRN Pain 12/10/21 12/14/21 History (Tylenol Extra Strength) albuterol sulfate 90 mcg/actuation 2 puff inhalation Q6 PRN Cough 12/10/21 12/14/21 History aerosol inhaler conjugated estrogens 0.625 mg/gram 1 applic vaginal 2XWK 12/10/21 12/14/21 History vaginal cream (Premarin) hydrocodone 10 mg-acetaminophen 1 tab PO Q8 PRN Pain 12/10/21 12/14/21 History 325 mg tablet lidocaine-prilocaine 2.5 %-2.5 % 1 applic topical DIRECTED 12/10/21 12/14/21 History topical cream magnesium oxide 400 mg (241.3 mg 400 mg PO QAM 12/10/21 12/14/21 History magnesium) tablet naloxone 4 mg/actuation nasal spray 1 spray intranasal DIRECTED 12/10/21 12/14/21 History nystatin 100,000 unit/gram topical 1 applic topical TID 12/10/21 12/14/21 History powder ([facility]) ondansetron HCl 8 mg tablet 8 mg PO Q8 PRN Nausea 12/10/21 12/14/21 History prochlorperazine maleate 10 mg 10 mg PO Q6 PRN Nausea 12/10/21 12/14/21 History tablet triamcinolone acetonide 0.1 % 1 applic topical BID PRN flare up 12/10/21 12/14/21 History topical cream apixaban 5 mg (74 tabs) tablets in 10 mg PO BID 12/14/21 12/14/21 History a dose pack (Eliquis) Allergies Allergy/AdvReac Type Severity Reaction Status Date / Time rifampin Allergy Intermediate Hives Verified 12/14/21 19:46 amoxicillin Allergy Mild Hives Verified 12/14/21 19:46 Past Med/Surg History Medical History CAD (coronary artery disease) non-obstructive Cholangiocarcinoma CURRENT DX Depression GERD (gastroesophageal reflux disease) HTN (hypertension) Hypersensitivity pneumonitis 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 REASON FOR PESSARY Sleep apnea CPAP Urinary frequency Surgical History H/O lymph node biopsy History of cardiac cath X2 (most recent 2011), no stents History of colonoscopy History of esophagogastroduodenoscopy (EGD) History of lung biopsy 04/2018 (showed scar tissue/hypersensitivity pneumonitis) History of repair of rotator cuff right History of tooth extraction History of total knee replacement R/L History of total shoulder replacement Left Reverse Total Shoulder Arthroplasty S/P arthroscopy of left shoulder X2 Family History Sister Diabetes Other No family history of adverse response to anesthesia Social History Smoking Status: Never smoker Second Hand Exposure: No; Hx Alcohol Use: No Hx Substance Use: No Preferred Language: [place] Communication Ability: Effective Seafood [employer] Required: No Beliefs That Will Affect Care: Voodoo Voodoo Beliefs: JAINISM , Spiritual and Cultural marital status: Current Living Situation: Spouse and Family Current Living Situation Comment: Lives with and family friend who takes care of Feels Safe at Home: Yes Assistive Devices: Cane and Walker Review of Systems A total of 10 systems reviewed and were otherwise negative Physical Exam Vital Signs: Vital Signs - 24 hr 12/14/21 18:26 12/14/21 19:44 12/14/21 19:44 Temperature 36.7 C Temperature Source Temporal Artery Sc an Pulse Rate 105 H Pulse Rate [Apical ] 106 H Pulse Rhythm Pulse Rhythm [Apic al] Regular Pulse Strength [Ap ical] Normal Respiratory Rate 18 20 Respiratory Effort / Characteristics Non-Labored Non-Labored Sponta neous Respiratory Depth Normal Normal Respiratory Patter n Regular Blood Pressure 127/72 Blood Pressure [Ri ght Arm] 140/80 Blood Pressure Mariely n 90 Blood Pressure Mariely n [Right Arm] 100 Pulse Oximetry 99 99 99 Oxygen Delivery Me thod Nasal Cannula Nasal Cannula Nasal Cannula Oxygen Flow Rate 2 2 2 Sepsis Recent Feve r Within 48 Hours No Sepsis New/Unexpla ined Change in Men wyatt Status No Sepsis Action Take n by Nursing No Action Required 12/14/21 19:47 12/14/21 21:00 Temperature Temperature Source Pulse Rate 102 H Pulse Rate [Apical ] 84 Pulse Rhythm Regular Pulse Rhythm [Apic al] Regular Pulse Strength [Ap ical] Normal Respiratory Rate 20 19 Respiratory Effort / Characteristics Non-Labored Sponta neous Respiratory Depth Normal Respiratory Patter n Regular Blood Pressure Blood Pressure [Ri ght Arm] Blood Pressure Mariely n Blood Pressure Mariely n [Right Arm] Pulse Oximetry 99 99 Oxygen Delivery Me thod Nasal Cannula Room Air Oxygen Flow Rate 2 Sepsis Recent Feve r Within 48 Hours Sepsis New/Unexpla ined Change in Men wyatt Status Sepsis Action Take n by Nursing Physical Exam: Physical Exam GENERAL: She is oriented to person, place, and time. She appears well-developed and well-nourished. She does not appear distressed. HENT: Exam performed. -Head: Normocephalic and atraumatic. -Right Ear: External ear normal. No mastoid tenderness. -Left Ear: External ear normal. No mastoid tenderness. -Mouth/Throat: The oropharynx is clear and moist. No trismus in the jaw. No dental abscesses or uvula swelling. No oropharyngeal exudate or tonsillar abscesses. EYES: Conjunctivae and EOM are normal. Pupils are equal, round, and reactive to light. Right eye exhibits no discharge. Left eye exhibits no discharge. No sc leral icterus. NECK: Normal range of motion. Neck supple. No JVD present. No spinous process tenderness present. No carotid bruit present. No rigidity. No tracheal deviation and normal range of motion present. No Brudzinski's sign and no Kernig's sign noted. CV: Tachycardic rate, regular rhythm, normal heart sounds and intact distal pulses. There is no peripheral edema. Palpable radial pulses bue. PULM/CHEST: Effort normal and breath sounds normal. No respiratory distress. No stridor. She has no wheezes. She has no rales. -Chest Wall: She exhibits no tenderness. ABD: The abdomen is soft. Bowel sounds are normal. She has no distension. No mass is present. There is no tenderness. There is no rebound, no guarding, no Starks's sign and no tenderness at McBurney's point. Rovsig negative MUSC/SKEL: Normal range of motion. There is no peripheral edema, tenderness or deformity. LYMPH: No cervical adenopathy. NEURO: She is alert and oriented to person, place, and time. She has normal strength. No cranial nerve deficit or sensory deficit. Coordination and gait normal. GCS eye subscore is 4. GCS verbal subscore is 5. GCS motor subscore is 6. Cerebellar tests wnl. SKIN: Skin is warm and dry. She is not diaphoretic. PSYCH: She has a normal mood and affect. Behavior is normal. Judgment and thought content normal. Course Course 1927: The patient was evaluated in room C6. A complete history and physical exam was performed Administered Medications Discontinued Medications Apixaban (Apixaban 5 Mg Tablet) 10 mg PO NOW STA Stop: 12/14/21 21:27 Last Admin: 12/14/21 21:58 Dose: 10 mg Documented By: [facility] Medical Decision Making Laboratory Data Result diagrams: 12/14/21 18:57 12/14/21 18:57 Lab Results 12/14/21 12/14/21 12/14/21 Range/Units 18:57 18:57 18:57 WBC 8.12 (4.8-10.8) K/ul RBC 3.84 L (3.93-5.22) M/uL Hgb 10.8 L (12.0-16.0) g/dl Hct 33.2 L (34.1-44.9) % MCV 86.5 (80.0-100.0) fL MCH 28.1 (25.0-34.0) pg MCHC 32.5 (32.0-36.0) g/dL RDW Std Deviation 47.1 H (36.4-46.3) fL RDW Coeff of Soniya 15.0 H (11.5-14.5) % Plt Count 158 (130-400) K/uL MPV 8.2 L (9.4-12.3) fL Immature Gran % (Auto) 0.2 % Neut % (Auto) 60.3 % Lymph % (Auto) 20.3 % [place] % (Auto) 15.5 % Eos % (Auto) 3.3 % Baso % (Auto) 0.4 % Neut # (Auto) 4.89 (1.4-6.5) K/uL Lymph # (Auto) 1.65 (1.2-3.4) K/uL [place] # (Auto) 1.26 H (0.24-0.82) K/uL Eos # (Auto) 0.27 (0-0.50) K/uL Baso # (Auto) 0.03 (0-0.2) K/uL Immature Gran # (Auto) 0.02 (0.00-0.02) K/uL PT 14.0 H (9.0-12.0) Seconds INR 1.3 H (0.9-1.1) APTT 26.6 (21.0-31.0) Seconds PTT Ratio 1.0 Sodium 134 L (136-145) mmol/L Potassium 4.5 (3.5-5.1) mmol/L Chloride 100 (98-107) mmol/L Carbon Dioxide 27 (21-32) mmol/L Anion Gap 7 (3-11) BUN 14 (6-23) mg/dl Creatinine 0.72 (0.6-1.2) mg/dl Est Cr Clr Drug Dosing Not Reportable Est GFR ( Amer) 93.0 ml/min Est GFR (Non-Af Amer) 80.2 ml/min BUN/Creatinine Ratio 19.4 (10-20) Glucose 114 H (70-99(Fasting)) mg/dl Calcium 9.7 (8.5-10.1) mg/dl Total Bilirubin 0.5 (0.2-1.0) mg/dl AST 47 H (13-39) U/L ALT 39 (7-52) U/L Alkaline Phosphatase 131 H (34-104) U/L Troponin I High Sens 7.1 (0-14) pg/ml Total Protein 7.5 (6.0-8.3) gm/dl Albumin 4.0 (3.4-5.0) gm/dl Globulin 3.5 (2.5-4.0) gm/dl Albumin/Globulin Ratio 1.1 (0.9-2) SARS-CoV-2, RNA, NAAT (NEGATIVE) 12/14/21 Range/Units 20:22 WBC (4.8-10.8) K/ul RBC (3.93-5.22) M/uL Hgb (12.0-16.0) g/dl Hct (34.1-44.9) % MCV (80.0-100.0) fL MCH (25.0-34.0) pg MCHC (32.0-36.0) g/dL RDW Std Deviation (36.4-46.3) fL RDW Coeff of Soniya (11.5-14.5) % Plt Count (130-400) K/uL MPV (9.4-12.3) fL Immature Gran % (Auto) % Neut % (Auto) % Lymph % (Auto) % [place] % (Auto) % Eos % (Auto) % Baso % (Auto) % Neut # (Auto) (1.4-6.5) K/uL Lymph # (Auto) (1.2-3.4) K/uL [place] # (Auto) (0.24-0.82) K/uL Eos # (Auto) (0-0.50) K/uL Baso # (Auto) (0-0.2) K/uL Immature Gran # (Auto) (0.00-0.02) K/uL PT (9.0-12.0) Seconds INR (0.9-1.1) APTT (21.0-31.0) Seconds PTT Ratio Sodium (136-145) mmol/L Potassium (3.5-5.1) mmol/L Chloride (98-107) mmol/L Carbon Dioxide (21-32) mmol/L Anion Gap (3-11) BUN (6-23) mg/dl Creatinine (0.6-1.2) mg/dl Est Cr Clr Drug Dosing Est GFR ( Amer) ml/min Est GFR (Non-Af Amer) ml/min BUN/Creatinine Ratio (10-20) Glucose (70-99(Fasting)) mg/dl Calcium (8.5-10.1) mg/dl Total Bilirubin (0.2-1.0) mg/dl AST (13-39) U/L ALT (7-52) U/L Alkaline Phosphatase (34-104) U/L Troponin I High Sens (0-14) pg/ml Total Protein (6.0-8.3) gm/dl Albumin (3.4-5.0) gm/dl Globulin (2.5-4.0) gm/dl Albumin/Globulin Ratio (0.9-2) SARS-CoV-2, RNA, NAAT NEGATIVE (NEGATIVE) Imaging Data Radiologist's Impression: Chest X-Ray 12/14/21 18:29 XR chest 2V PA/lateral CLINICAL HISTORY: Chest Pain TECHNIQUE: 2 views of the chest were obtained. Comparison: Comparison is made to chest radiograph 12/09/2021 and CTA chest 12/09/2021 FINDINGS: A port catheter is seen. Left reverse shoulder arthroplasty is seen. Cardiomegaly is noted. Reticular interstitial opacities are seen. No evidence of pleural effusion or pneumothorax. IMPRESSION: Stable cardiomegaly and interstitial disease. No acute abnormality is seen. ACT 112: Negative or not required by law. Electronically signed by: Juan Skinner M.D. 12/14/2021 7:29 PM ECG Data Indication: palpitations Rate (beats per minute): 110 Rhythm: sinus tachycardia Findings: no ST depression, no ST elevation or no prolonged QT MDM Narrative Cardiac monitoring: An order was placed for continuous cardiac monitoring. The monitor shows a rate of 110 with sinus tachycardia rhythm EMR reviewed. Patient was admitted to the hospital from December 09 to December 13, 2021, the patient was discharged yesterday. Patient was admitted on December 09 after she was diagnosed with having an acute appearing occlusive DVT of the right internal jugular vein measuring up to 10 cm in length.A CTA of the chest was conducted that same day and was negative for pulmonary emboli. The patient was admitted to the hospital and started on heparin. The patient was transitioned to Eliquis.Vascular surgery was consulted during her admission and is stated the right IJ thrombus is superior to the catheter tip point and there is minimal risk of dislodging the thrombus. Labs and imaging today are within normal limits. Patient will be admitted to the hospital for cardiology evaluation for her palpitations. Patient and family are in agreement with the plan. [facility] hospitalist team will be notified. Impression & Plan Palpitations Discharge Plan Visit Data Chief Complaint: Tachycardia Stated Complaint: BLOOD CLOT, INCREASE HEART RATE ED Provider: Dave Mota Discharge Problem: Palpitations Patient Disposition: Admitted As Inpatient Discharge Instructions Interventions: ED Discharge Assessment Last Done: 12/14/21 22:39
[2021-12-15] MEDS ORDERED: FUROSEMIDE 20 MG TAB PO PRN (00:04)
--- NOTE | 2021-12-15 01:12 | History and Physical Report ---
DATE OF ADMISSION: 12/14/2021. CHIEF COMPLAINT: Tachycardia. HISTORY OF PRESENT ILLNESS: This is a 80-year-old female with past medical history significant for chronic respiratory failure secondary to pulmonary hypertension secondary to interstitial lung disease; hypersensitivity pneumonitis, on home oxygen; obstructive sleep apnea, on CPAP; chronic diastolic heart failure; valvular heart disease; nonobstructive CAD as per records; history of hypertension; hyperlipidemia; history of metastatic cholangiocarcinoma, ongoing chemotherapy; chronic anemia, baseline hemoglobin of 10. She was recently in the hospital for painful swelling in the right side of the neck and found to have right IJ thrombus on CAT scan. She was treated with IV heparin and discharged on Eliquis, supposed to take Eliquis 10 mg b.i.d. until 12/19/2021, to start on Eliquis 5 mg b.i.d. from 12/20/2021. Seen by vascular surgery, thought right IJ thrombus is superior to the A-port catheter access point and well superior to the tip of the catheter and thought to be at minimal risk of dislodgement of thrombus by using the port. CTA chest was done during that admission. It showed acute occlusive thrombus of right internal jugular vein tracking [id number] catheter, no PE was found, and the patient was discharged yesterday evening. Today morning nurse came to check on her. They found her heart rates in the 120s to 130s, and they called the family doctor and advised to come to the ER. In the ER, her heart rates are 105 to 106, resting comfortably, hemodynamically stable. Denies any headache. Currently no dizziness. There is no blurred visions. Right-sided neck pain has improved. No runny nose, no sore throat. No cough. Appetite is okay. Currently, no chest pain. She gets short of breath on exertion and she uses home oxygen,nothing new. No fevers, no nausea, no vomiting. Has mild left lower quadrant abdominal discomfort. Was constipated, but relieved now. No blood in the stools. Normal bladder movements. Ambulates with a cane or walker when she goes outside. Lives with her and a friend. ALLERGIES: RIFAMPICIN, AMOXICILLIN. PAST MEDICAL HISTORY: As mentioned above. PAST SURGICAL HISTORY: Knee surgeries, partial hysterectomy, cataract surgeries, A-port placement, shoulder surgery, thoracoscopic biopsy. FAMILY HISTORY: Significant for heart disease, CVA, uterine cancer. 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 MEDICATIONS: Tylenol Extra Strength 500 mg p.o. q. 6 hours p.r.n., albuterol 2 puffs inhalation q. 6 hours p.r.n., Eliquis 10 mg p.o. b.i.d. until 12/19/2021 and then 5 mg b.i.d. from 12/20/2021,buspirone 10 mg p.o. t.i.d., citalopram 20 mg p.o. a.m., dicyclomine 20 mg p.o. q.i.d. p.r.n., Colace 100 mg p.o. b.i.d., Nexium 40 mg p.o. a.m., famotidine 20 mg p.o. daily p.r.n., Lasix 20 mg p.r.n., hydrocodone/acetaminophen 1 tablet p.o. q. 8 hours p.r.n., lidocaine-prilocaine topical p.r.n., milk of magnesia 15 mL p.r.n., magnesium oxide 400 mg p.o. a.m., Lanoxin 1 spray intranasal p.r.n., nystatin 1 application topical t.i.d., Zofran 8 mg p.o. q. 8 hours p.r.n., MiraLax 17 g p.o. daily, potassium chloride 10 mEq p.o. 3 times a week with Lasix, Premarin 1 application vaginally 2 times a week, prochlorperazine 10 mg p.o. q. 6 hours p.r.n., rosuvastatin 10 mg p.o. a.m., Senokot S two tablets p.o. b.i.d. p.r.n., triamcinolone p.r.n., verapamil 120 mg extended release p.o. a.m. REVIEW OF SYSTEMS: As per HPI. Rest of the review of systems is negative. PHYSICAL EXAMINATION: GENERAL: The patient is of moderate build, not in acute distress. VITAL SIGNS: Temperature 36.7, pulse 105, respiratory rate 19, blood pressure 140/80, oxygen 99% on room air. HEENT: Pupils equal, round, and reactive to light. Oral mucosa moist. NECK: No JVD, no neck masses. CARDIOVASCULAR: S1 and S2 heard. Tachycardia. No murmurs. RESPIRATORY SYSTEM: Normal AP diameter. No accessory muscle use. No wheezing, no crackles. ABDOMEN: Soft, bowel sounds present, nontender. Mild left lower quadrant discomfort. No guarding, no rigidity, no distention. CENTRAL NERVOUS SYSTEM: Cranial nerves II through XII are grossly intact, nonfocal. EXTREMITIES: Mild pedal edema, no erythema seen. LABORATORY DATA: WBC 8.1, hemoglobin 10.8, hematocrit 33.2, platelets 158. PT 14, INR 1.3, APTT 26.6. Sodium 134, potassium 4.5, chloride 100, bicarbonate 27, BUN 14, creatinine 0.7, serum glucose 114, calcium 9.7, total bilirubin 0.5, AST 47, ALT 39, alkaline phosphatase 131, troponin 1 high sensitivity is 1.1. SARS-CoV-2 rapid test negative. IMAGING DATA: Chest x-ray, stable cardiomegaly and interstitial disease, no acute abnormalities seen. EKG: Sinus tachycardia at a rate of 110, left axis deviation, questionable T- wave inversions in lateral leads. ASSESSMENT AND PLAN: This 80-year-old female presents with tachycardia. 1. Tachycardia: Recently found to have right IJ thrombus close to the A-port catheter. At that time, during the admission, CT chest showed no PE. Currently, hemodynamics are ok and no complaints of shortness of breath. Has some EKG changes. Will observe in [employer] tele. Keep her n.p.o. Serial cardiac enzymes, echo, and consult cardiology in the a.m. If tachycardia not improving, consider reimaging of her chest for pulmonary embolism. 2. Recent right IJ thrombus, on Eliquis: Currently on Eliquis 10 mg b.i.d. until 12/19/2021 and then 5 mg b.i.d. Can consult vascular surgery if there is a question of thrombus extension. 3. Metastatic cholangiocarcinoma, ongoing chemotherapy. Follow up with hem/onc. 4. Constipation: Continue her home bowel regimen. 5. Chronic respiratory failure secondary to pulmonary hypertension secondary to interstitial lung disease, on 2.5 liters home oxygen. Will monitor. 6. History of chronic diastolic congestive heart failure: Currently getting gentle fluids. Will monitor for any volume overload. Follow echocardiogram. 7. Hypertension: On verapamil. Will follow the blood pressure. 8. Hyperlipidemia: On statin. 9. Chronic anemia: Will follow the labs. 10. History of thrombocytopenia: Will follow the labs. 11. Gastroesophageal reflux disease: On omeprazole. 12. Mood disorder: On citalopram and buspirone. 13. Deep venous thrombosis prophylaxis: On Eliquis. DISPOSITION: Closely observe in med tele. PT/OT prior to discharge. Social service to help with discharge planning. Level 1 full code. Job ID: [id number]
[2021-12-15 05:53] LABS: Basophils # (auto) 0.02 K/uL (0-0.2); Basophils % (auto) 0.4 %; Eosinophils # (auto) 0.31 K/uL (0-0.50); Eosinophils % (auto) 5.5 %; Hematocrit (blood only) 30.4 % (34.1-44.9); Hemoglobin 9.8 g/dl (12.0-16.0); Immature Granulocytes # (auto) 0.01 K/uL (0.00-0.02); Immature Granulocytes % (auto) 0.2 %; Lymphocytes # (auto) 1.57 K/uL (1.2-3.4); Lymphocytes % (auto) 27.8 %; Mean Corpuscular Hemoglobin 27.6 pg (25.0-34.0); Mean Corpuscular Hgb Conc 32.2 g/dL (32.0-36.0); Mean Corpuscular Volume 85.6 fL (80.0-100.0); Monocytes # (auto) 0.93 K/uL (0.24-0.82); Monocytes % (auto) 16.5 %; Neutrophils % (auto) 49.6 %; Platelet Count 156 K/uL (130-400); RDW Coefficient of Variation 15.2 % (11.5-14.5); RDW Standard Deviation 47.7 fL (36.4-46.3); Red Blood Count 3.55 M/uL (3.93-5.22); White Blood Count 5.64 K/ul (4.8-10.8)
[2021-12-15 06:20] LABS: Creatinine Clr Calc Pharmacy 80.4 ml/min; Est GFR (African American) 102.3 ml/min; Est GFR (Non-African American) 88.3 ml/min; Magnesium 1.7 mg/dl (1.7-2.4); Potassium 4.1 mmol/L (3.5-5.1); Troponin I High Sensitivity 6.6 pg/ml (0-14)
[2021-12-15] MEDS: NYSTATIN POWDER 15GM BTL EXT SCH ×2 (08:12→14:13)
[2021-12-15] MEDS: busPIRone 5 MG TAB PO SCH ×2 (08:13→14:13)
[2021-12-15] MEDS ORDERED: CITALOPRAM 20 MG TAB PO SCH (09:00)
[2021-12-15] MEDS ORDERED: ROSUVASTATIN CALCIUM 10 MG TAB PO SCH (09:00)
[2021-12-15] MEDS ORDERED: PANTOprazole 40 MG TAB PO SCH (09:00)
[2021-12-15] MEDS ORDERED: DOCUSATE SODIUM 100 MG CAP PO SCH (09:00)
[2021-12-15] MEDS ORDERED: POLYETHYLENE (MIRALAX) 17 GM PACK PO SCH (09:00)
[2021-12-15] MEDS ORDERED: PREMARIN VAG CRM 14 APPLN/30 GM TUBE PV SCH (09:00)
[2021-12-15] MEDS ORDERED: APIXABAN 5 MG TABLET PO SCH (09:00)
[2021-12-15] MEDS ORDERED: VERAPAMIL HCL 120 MG TABCR PO SCH (09:00)
[2021-12-15] MEDS ORDERED: MAGNESIUM OXIDE 400 MG TAB PO SCH (09:00)
--- NOTE | 2021-12-15 11:01 | Cardiology Consultation ---
Date of Consultation December 15, 2021 Assessment & Plan (1) Sinus tachycardia: Patient presents with transient asymptomatic sinus tachycardia, heart rate minimally elevated at time of presentation in the emergency room in the range of 105 to 110 bpm in the setting of hepatic cholangiocarcinoma, chronic underlying interstitial lung disease for which patient is on chronic oxygen supplementation and positive pressure ventilation at bedtime, and recent diagnosis of a right internal jugular vein thrombus, on the same side as her [id number]-r-Eggq. The patient's symptoms of right neck fullness have resolved. She is now on appropriate anticoagulation, Eliquis 10 mg twice daily with plans to transition her to 5 mg twice daily as of 12/20/2021. The patient's echocardiogram is reassuring, with no new right heart strain, and although her pulmonary artery systolic pressure is estimated be 40 (mildly elevated) I am not certain that this would be related to pulmonary embolism, as it would be consistent with her underlying lung disease, and the time of her most recent outpatient echocardiogram Jul, 2020, the pulmonary artery systolic pressure was estimated to be around 34 mmHg. I would not be surprised if her internal jugular thrombus has migrated, and that if a CT angiogram was performed that we would find pulmonary embolism however I do not think that finding would necessarily change our management at this point as the patient has no worsening hypoxia compared to her usual baseline, her blood pressure is normal, no RV strain on echocardiogram, and she has no symptoms, with having been referred simply based on the noted elevated heart rate, which has since improved. Would recommend advancing her diet. Would recommend continuing her chronic dose of verapamil 120 mg daily, which she is to receive this morning. Will defer decision whether not to repeat a CT angiogram of the chest to the [facility] service, with considerations as noted above. The patient notes that she does have stressors at home, she has an ill , as well as another man who lives with them who they take care of. Per patient request, the patient had her daughter , [place] , on conference call at the time of my assessment and I answered her questions. History of Present Illness Attending Physician: Hemant Howard MD History of Present Illness Randa Thomas (Peggy) is a 80-year-old female seen in cardiology consultation per the request of Dr. Haddad for the evaluation of sinus tachycardia. In April, she underwent placement of a right subclavian Infusaport to allow chemotherapy administration for her history of hepatic cholangiocarcinoma. She presented to [facility] via the emergency department on 12/09/2021 with a complaint of pain and fullness of her right neck, and she was found to have a thrombus of the right internal jugular vein as visualized on the CT angiogram of the neck. No pulmonary embolism identified at the time. She was initially placed on unfractionated heparin and then transition to Eliquis, and discharged on 12/13/2021. Yesterday, her vital signs were assessed by [facility], and she was noted to be tachycardic prompting referral back to the emergency room. Per review of vital signs, her initial heart rate as measured on presentation 12/14/2021, 18: 26 was 105 bpm. At the time my assessment, the patient was resting comfortably in room 255. Telemetry revealed initial heart rate in the range of 110 bpm upon arrival to the floor last night, and has trended down currently in the 80s. The patient denies any chest discomfort or worsening shortness of breath. She notes that the right neck fullness for which she had presented on 12/09/2021 has improved/resolved. Outpatient Cardiology Problem List: 1.Longstanding hypertension with hypertensive heart disease, chronic stage 2 diastolic dysfunction. 2.Moderate mitral insufficiency. 3.Mild obstructive sleep apnea. 4.Hyperlipidemia. 5.Osteoarthritis with chronic pain. 6.History of prior diagnostic cardiac catheterization 2011 without obstructive coronary artery disease. 7. Hypersensitivity pneumonitis by lung biopsy April 10, 2018 with exertional hypoxia, is on chronic oxygen supplementation at 2.5 L/min at home on a chronic basis 8. Chronic ventricular ectopy, bigeminy 9. Hepatic cholangiocarcinoma Allergies Allergy/AdvReac Type Severity Reaction Status Date / Time rifampin Allergy Intermediate Hives Verified 12/14/21 19:46 amoxicillin Allergy Mild Hives Verified 12/14/21 19:46 Home Medications Medication Instructions Recorded Confirmed Type buspirone 10 mg tablet 10 mg PO TID 12/10/19 12/14/21 History citalopram 20 mg tablet 20 mg PO QAM 12/10/19 12/14/21 History esomeprazole magnesium 40 mg 40 mg PO QAM 12/10/19 12/14/21 History capsule,delayed release potassium chloride 10 mEq 10 meq PO 3XWK 12/10/19 12/14/21 History capsule,extended release rosuvastatin 10 mg tablet (Crestor) 10 mg PO QAM 12/10/19 12/14/21 History verapamil 120 mg 24 hr 120 mg PO QAM 12/10/19 12/14/21 History capsule,extended release famotidine 20 mg tablet 20 mg PO DAILY PRN Acid Reflux 12/12/19 12/14/21 History dicyclomine 20 mg tablet 20 mg PO QID PRN Abdominal Pain 03/30/21 12/14/21 Hi story docusate sodium 100 mg tablet 100 mg PO AMHS 03/30/21 12/14/21 History furosemide 20 mg tablet 20 mg PO UD PRN Fluid Retention 03/30/21 12/14/21 History magnesium hydroxide 400 mg/5 mL 15 ml PO DAILY PRN gastric upset 05/28/21 12/14/21 History oral suspension (Milk of Magnesia) polyethylene glycol 3350 17 17 g PO DAILY 05/28/21 12/14/21 History gram/dose oral powder (Miralax) sennosides 8.6 mg-docusate sodium 1 - 2 tab-cap PO BID PRN 05/28/21 12/14/21 Rx 50 mg tablet (Senokot-S) constipation #60 tabs acetaminophen 500 mg tablet 500 mg PO Q6H PRN Pain 12/10/21 12/14/21 History (Tylenol Extra Strength) albuterol sulfate 90 mcg/actuation 2 puff inhalation Q6 PRN Cough 12/10/21 12/14/21 History aerosol inhaler conjugated estrogens 0.625 mg/gram 1 applic vaginal 2XWK 12/10/21 12/14/21 History vaginal cream (Premarin) hydrocodone 10 mg-acetaminophen 1 tab PO Q8 PRN Pain 12/10/21 12/14/21 History 325 mg tablet lidocaine-prilocaine 2.5 %-2.5 % 1 applic topical DIRECTED 12/10/21 12/14/21 History topical cream magnesium oxide 400 mg (241.3 mg 400 mg PO QAM 12/10/21 12/14/21 History magnesium) tablet naloxone 4 mg/actuation nasal spray 1 spray intranasal DIRECTED 12/10/21 12/14/21 History nystatin 100,000 unit/gram topical 1 applic topical TID 12/10/21 12/14/21 History powder (Nyamyc) ondansetron HCl 8 mg tablet 8 mg PO Q8 PRN Nausea 12/10/21 12/14/21 History prochlorperazine maleate 10 mg 10 mg PO Q6 PRN Nausea 12/10/21 12/14/21 History tablet triamcinolone acetonide 0.1 % 1 applic topical BID PRN flare up 12/10/21 12/14/21 History topical cream apixaban 5 mg (74 tabs) tablets in 10 mg PO BID 12/14/21 12/14/21 History a dose pack (Eliquis) Patient History Medical History CAD (coronary artery disease) non-obstructive Cholangiocarcinoma CURRENT DX Depression GERD (gastroesophageal reflux disease) HTN (hypertension) Hypersensitivity pneumonitis 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 REASON FOR PESSARY Sleep apnea CPAP Urinary frequency Surgical History H/O lymph node biopsy History of cardiac cath X2 (most recent 2011), no stents History of colonoscopy History of esophagogastroduodenoscopy (EGD) History of lung biopsy 04/2018 (showed scar tissue/hypersensitivity pneumonitis) History of repair of rotator cuff right History of tooth extraction History of total knee replacement R/L History of total shoulder replacement Left Reverse Total Shoulder Arthroplasty S/P arthroscopy of left shoulder X2 Family History Sister Diabetes Other No family history of adverse response to anesthesia Social History Smoking Status: Never smoker Second Hand Exposure: Yes (History of, not currently exposed.); Do You Dip or Chew Tobacco: No; Hx Alcohol Use: No Hx Substance Use: No Preferred Language: Lebanese Communication Ability: Effective Bleach Analyst Required: No Beliefs That Will Affect Care: None marital status: Current Living Situation: Spouse Current Living Situation Comment: Lives with and family friend who takes care of Feels Safe at Home: Yes Safety Concerns: Feels Safe At This Time Assistive Devices: Denture - Upper, Glasses and Oxygen - Continuous Review of Systems Review of Systems: All systems reviewed & are unremarkable except as noted in HPI & below Physical Exam Constitutional: WD/WN, vitals as above Respiratory: Auscultation: + crackles (Mild crackles bilaterally at the bases, consistent with the patient's histo) Cardiovascular: RRR, no murmur, no edema Chest (Breasts): Additional Comments: Right [id number], clean dry, intact, no erythema Neurologic: PERRL, EOMI, accommodation nl, no face palsy, no dysarthria Results & Data ([facility]) Vital Signs (Past 12 Hours) Vital Signs Temp Pulse Pulse Pulse Resp BP BP 12/15/21 08:10 37.0 C 79 18 122/69 12/15/21 07:31 75 12/15/21 04:27 76 22 12/15/21 04:00 36.9 C 79 20 138/78 12/14/21 23:27 93 H 12/15/21 00:53 78 18 12/14/21 23:37 37.0 C 73 20 124/72 12/15/21 00:28 12/15/21 00:20 37.0 C 73 20 124/72 Pulse Ox O2 Del Method O2 Flow Rate 12/15/21 08:10 97 Nasal Cannula 2 12/15/21 07:31 12/15/21 04:27 97 2 12/15/21 04:00 98 CPAP 12/14/21 23:27 12/15/21 00:53 98 4 12/14/21 23:37 98 Nasal Cannula 2 12/15/21 00:28 Nasal Cannula 2 12/15/21 00:20 98 Nasal Cannula 2 Laboratory Results Cardiac Enzymes 12/14/21 12/15/21 12/15/21 Range/Units 18:57 05:13 05:13 AST 47 H (13-39) U/L Troponin I High Sens 7.1 Cancelled 6.6 (0-14) pg/ml Coagulation 12/14/21 Range/Units 18:57 PT 14.0 H (9.0-12.0) Seconds APTT 26.6 (21.0-31.0) Seconds CBC 12/14/21 12/15/21 Range/Units 18:57 05:13 WBC 8.12 5.64 (4.8-10.8) K/ul RBC 3.84 L 3.55 L (3.93-5.22) M/uL Hgb 10.8 L 9.8 L (12.0-16.0) g/dl Hct 33.2 L 30.4 L (34.1-44.9) % Plt Count 158 156 (130-400) K/uL Neut # (Auto) 4.89 2.80 (1.4-6.5) K/uL Lymph # (Auto) 1.65 1.57 (1.2-3.4) K/uL [place] # (Auto) 1.26 H 0.93 H (0.24-0.82) K/uL Eos # (Auto) 0.27 0.31 (0-0.50) K/uL Baso # (Auto) 0.03 0.02 (0-0.2) K/uL Comprehensive Metabolic Panel 12/14/21 12/15/21 Range/Units 18:57 05:13 Sodium 134 L 136 (136-145) mmol/L Potassium 4.5 4.1 (3.5-5.1) mmol/L Chloride 100 104 (98-107) mmol/L Carbon Dioxide 27 25 (21-32) mmol/L BUN 14 11 (6-23) mg/dl Creatinine 0.72 0.58 L (0.6-1.2) mg/dl Glucose 114 H 85 (70-99(Fasting)) mg/dl Calcium 9.7 9.0 (8.5-10.1) mg/dl AST 47 H (13-39) U/L ALT 39 (7-52) U/L Alkaline Phosphatase 131 H (34-104) U/L Total Protein 7.5 (6.0-8.3) gm/dl Albumin 4.0 (3.4-5.0) gm/dl Intake and Output 12/14/21 12/15/21 12/15/21 22:59 06:59 14:59 Intake Total 100 / 100 Balance 100 / 100 Intake: Oral 100 / 100 Other: Weight 75.9 kg 74.1 kg Weight Measurement Method Built in [facility] Built in [facility] Diagnostic Findings EKG performed this morning 12/15/2021, reviewed independently: Sinus rhythm at 80 bpm with first-degree AV block, HI interval 218 ms, age-indeterminate anterior infarct pattern, no significant repolarization changes. EKG performed 12/14/2021 1900: Sinus tachycardia 110 bpm, poor R wave progression noted, which is a chronic finding. Summary transthoracic echocardiogram performed this morning 12/15/2021, reviewed independently: The left ventricular wall motion is normal, LVEF 55 to 60% Mild aortic valve calcification without aortic stenosis. Moderate mitral annular calcification present. Mild to moderate mitral regurgitation present. Mild tricuspid regurgitation. Mild pulmonary hypertension noted, with estimated pulmonary artery systolic pressure of 40 mmHg. Grade 1 diastolic dysfunction.
--- NOTE | 2021-12-15 13:06 | Hospitalist Progress Note ---
Date of Service December 15, 2021 Assessment & Plan (1) Sinus tachycardia: Plan: Patient is a 80 yr female who presents with tachycardia. Asymptomatic Sinus Tachycardia: Likely secondary to underlying lung disease. -ECHO: Left ventricle wall motion is normal. EF 55 to 60%. Right ventricle is normal in size and function. Aortic valve is mildly calcified. Aortic stenosis is absent. Moderate mitral annular calcification with mild to moderate mitral regurgitation. Mild tricuspid regurgitation. Mild pulmonary hypertension present. Pulmonary artery systolic pressure is estimated to be 40 mmHg. Grade 1 diastolic dysfunction -CTA:Partially imaged thrombus of the right internal jugular vein redemonstrated, better visualized on comparison studies. Cardiomegaly with evidence of pulmonary arterial hypertension. No pulmonary emboli are identified. 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 Mild progressed bilateral groundglass densities may be atelectatic. Unchanged mediastinal and hilar lymphadenopathy. Hepatic metastasis redemonstrated. --Appreciate Cardiology Input Continue Verapamil 120 mg daily -Monitor Right Internal jugular vein thrombosis Neck CT from 12/09/21:Acute appearing occlusive deep venous thrombus of the right internal jugular vein measures up to 10 cm in length. Borderline enlarged right peritracheal with subcentimeter supraclavicular lymph nodes. Continue Eliquis 10 mg twice a day until December 19, 2021, then take 5 mg twice a day Consider following vascular surgeon as outpatient Metastatic cholangiocarcinoma ongoing chemotherapy Follow up with hem/onc as outpatient Constipation: Continue bowel regimen Chronic respiratory failure with Hypoxia Chronic oxygen dependency 2.5 L at baseline Secondary to pulmonary hypertension, interstitial lung disease Continue supplemental oxygen Chronic diastolic congestive heart failure: No signs of decompensation Continue home medications Echo as above Monitor volume status Hypertension: Continue verapamil Monitor Hyperlipidemia: On statin Anemia of Chronic disease: Thrombocytopenia No bleeding issues Monitor CBC GERD Continue PPI Mood disorder: On citalopram and buspirone. DVT Px: On Eliquis. CODE STATUS Full code Disposition Home With Admission and Anticipated Discharge Date Admission Date: December 14, 2021 Subjective Patient is seen and examined at bedside States having minimal back discomfort Also reports minimal dyspnea on exertion Right neck swelling much improved Denies any chest pain, dizziness, nausea, abd pain Review of Systems Review of Systems: All systems reviewed & are unremarkable except as noted in Subjective Physical Exam Physical Exam: Physical Exam: Vitals signs as noted above General Appearance:Moderately built and nourished, no apparent distress Head: normocephalic, Atraumatic Neck:Right Neck minimal swelling, improved Eyes: normal inspection, EOMI Neck: supple, Trachea midline Respiratory/Chest: Normal breath sounds, Minimal basal crackles, No accessory muscle use Cardiovascular: S1, S2, No murmur Abdomen/GI:Soft, Non tender, Bowel sounds present Extremities/Musculoskeletal:normal inspection, Trace pedal edema Neurologic/Psych:AAOX3, grossly no focal neurological deficits Skin: normal color, warm Results & Data Results & Data ([facility]) Vital Signs (Past 12 Hours) Vital Signs Temp Pulse Pulse Resp BP Pulse Ox O2 Del Method 12/15/21 11:44 37.0 C 64 18 116/73 98 Nasal Cannula 12/15/21 08:10 37.0 C 79 18 122/69 97 Nasal Cannula 12/15/21 07:31 75 12/15/21 04:27 76 22 97 12/15/21 04:00 36.9 C 79 20 138/78 98 CPAP O2 Flow Rate 12/15/21 11:44 2 12/15/21 08:10 2 12/15/21 07:31 12/15/21 04:27 2 12/15/21 04:00 Laboratory Results Short CBC 12/14/21 12/15/21 Range/Units 18:57 05:13 WBC 8.12 5.64 (4.8-10.8) K/ul Hgb 10.8 L 9.8 L (12.0-16.0) g/dl Hct 33.2 L 30.4 L (34.1-44.9) % Plt Count 158 156 (130-400) K/uL BMP 12/14/21 12/15/21 18:57 05:13 Sodium 134 L 136 Potassium 4.5 4.1 Chloride 100 104 Carbon Dioxide 27 25 BUN 14 11 Creatinine 0.72 0.58 L Glucose 114 H 85 Calcium 9.7 9.0 Liver Function 12/14/21 Range/Units 18:57 Total Bilirubin 0.5 (0.2-1.0) mg/dl AST 47 H (13-39) U/L ALT 39 (7-52) U/L Alkaline Phosphatase 131 H (34-104) U/L Albumin 4.0 (3.4-5.0) gm/dl
[2021-12-15] MEDS ORDERED: OPTIRAY 320 500ml IV ONE (13:32)
--- NOTE | 2021-12-15 14:31 | CT Scan Report ---
CT angio chest PE protocol CT DOSE: 349.02 mGy.cm HISTORY: 80 years-old Female with PE. Acute chest pain with shortness of breath TECHNIQUE: Multiple CTA images of the chest were obtained after the intravenous administration of 120 ml Optiray. Coronal and sagittal MIPS were obtained from the axial data set and were submitted for review. All measurements were obtained according to NASCET criteria. A dose lowering technique was u tilized adhering to the principles of ALARA. COMPARISON: CTA chest 12/09/2021 FINDINGS: CTA: Moderate cardiomegaly. Moderate coronary artery calcifications. Atherosclerosis of the thoracic aorta with patency of the imaged great vessels. Dilated pulmonary arteries suggestive of pulmonary ar terial hypertension. No pulmonary emboli are identified. Thrombus of the right internal jugular vein with adjacent inflammatory stranding redemonstrated. Distal tip of the Iznjzd-i-Karc catheter is pres ent within the inferior aspect of the SVC. CT CHEST: Unremarkable thyroid. Mildly enlarged paratracheal and subcarinal lymph nodes measure up to approximately 1.4 cm. Mild right hemidiaphragmatic elevation. No pneumothorax, or pleural effusion. Bilateral subpleural predominant reticulation with intermixed g roundglass opacities and traction bronchiectasis again noted. No significant honeycombing. Mildly pro gressed groundglass opacities, notably within the left lower lobe. Calcified granuloma of the inferio r segment lingula. There are no suspicious pulmonary nodules or masses identified. The central airway s are patent. Contrast noted within the bilateral renal collecting systems. Mild nonspecific distal e sophageal wall thickening. Multifocal hepatic metastasis are again noted measuring up to approximatel y 6.6 cm. Unremarkable soft tissues. Left shoulder arthroplasty. Degenerative changes of the shoulder s and spine. No destructive bone lesions are identified. IMPRESSION: 1. Partially imaged thrombus of the right internal jugular vein redemonstrated, better visualized on comparison studies 2. Cardiomegaly with evidence of pulmonary arterial hypertension. No pulmonary emboli are identified 3. 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 4. Mild progressed bilateral groundglass densities may be atelectatic. 5. Unchanged mediastinal and hilar lymphadenopathy. 6. Hepatic metastasis redemonstrated. ACT 112: Negative or not required by law. The above report was generated using voice recognition software. It may contain grammatical, syntax o r spelling errors. Electronically signed by: Maxim Arias M.D. 12/15/2021 2:29 PM
--- NOTE | 2021-12-15 14:46 | Discharge Summary ---
Date of Service December 15, 2021 Admission HPI Per Admitting Provider DATE OF ADMISSION: 12/14/2021. CHIEF COMPLAINT: Tachycardia. HISTORY OF PRESENT ILLNESS: This is a 80-year-old female with past medical history significant for chronic respiratory failure secondary to pulmonary h ypertension secondary to interstitial lung disease; hypersensitivity pneumonitis, on home oxygen; obstructive sleep apnea, on CPAP; chronic diastolic heart failure; valvular heart disease; nonobstructive CAD as per records; history of hypertension; hyperlipidemia; history of metastatic cholangiocarcinoma, ongoing chemotherapy; chronic anemia, baseline hemoglobin of 10. She was recently in the hospital for painful swelling in the right side of the neck and found to have right IJ thrombus on CAT scan. She was treated with IV heparin and discharged on Eliquis, supposed to take Eliquis 10 mg b.i.d. until 12/19/2021, to start on Eliquis 5 mg b.i.d. from 12/20/2021. Seen by vascular surgery, thought right IJ thrombus is superior to the A-port catheter access point and well superior to the tip of the catheter and thought to be at minimal risk of dislodgement of thrombus by using the port. CTA chest was done during that admission. It showed acute occlusive thrombus of right internal jugular vein tracking Ripidi-X-Szqg catheter, no PE was found, and the patient was discharged yesterday evening. Today morning nurse came to check on her. They found her heart rates in the 120s to 130s, and they called the family doctor and advised to come to the ER. In the ER, her heart rates are 105 to 106, resting comfortably, hemodynamically stable. Denies any headache. Currently no dizziness. There is no blurred visions. Right-sided neck pain has improved. No runny nose, no sore throat. No cough. Appetite is okay. Currently, no chest pain. She gets short of breath on exertion and she uses home oxygen,nothing new. No fevers, no nausea, no vomiting. Has mild left lower quadrant abdominal discomfort. Was constipated, but relieved now. No blood in the stools. Normal bladder movements. Ambulates with a cane or walker when she goes outside. Lives with her and a friend. Admission Exam Per Admitting Provider PHYSICAL EXAMINATION: GENERAL: The patient is of moderate build, not in acute distress. VITAL SIGNS: Temperature 36.7, pulse 105, respiratory rate 19, blood pressure 140/80, oxygen 99% on room air. HEENT: Pupils equal, round, and reactive to light. Oral mucosa moist. NECK: No JVD, no neck masses. CARDIOVASCULAR: S1 and S2 heard. Tachycardia. No murmurs. RESPIRATORY SYSTEM: Normal AP diameter. No accessory muscle use. No wheezing, no crackles. ABDOMEN: Soft, bowel sounds present, nontender. Mild left lower quadrant discomfort. No guarding, no rigidity, no distention. CENTRAL NERVOUS SYSTEM: Cranial nerves II through XII are grossly intact, nonfocal. EXTREMITIES: Mild pedal edema, no erythema seen. Principal Diagnosis Sinus tachycardia Right Internal jugular vein thrombosis Discharge Exam Physical Exam: Vitals signs as noted above General Appearance:Moderately built and nourished, no apparent distress Head: normocephalic, Atraumatic Neck:Right Neck minimal swelling, improved Eyes: normal inspection, EOMI Neck: supple, Trachea midline Respiratory/Chest: Normal breath sounds, Minimal basal crackles, No accessory muscle use Cardiovascular: S1, S2, No murmur Abdomen/GI:Soft, Non tender, Bowel sounds present Extremities/Musculoskeletal:normal inspection, Trace pedal edema Neurologic/Psych:AAOX3, grossly no focal neurological deficits Skin: normal color, warm Discharge Data Allergies Allergy/AdvReac Type Severity Reaction Status Date / Time rifampin Allergy Intermediate Hives Verified 12/14/21 19:46 amoxicillin Allergy Mild Hives Verified 12/14/21 19:46 Consultations 12/14/21 20:42 ED Decision to Admit Stat 12/15/21 08:00 Consult Cardiology Routine Procedures Performed Laboratory Results WBC 5.64 K/ul (4.8-10.8) 12/15/21 05:13 RBC 3.55 M/uL (3.93-5.22) L 12/15/21 05:13 Hgb 9.8 g/dl (12.0-16.0) L 12/15/21 05:13 Hct 30.4 % (34.1-44.9) L 12/15/21 05:13 MCV 85.6 fL (80.0-100.0) 12/15/21 05:13 MCH 27.6 pg (25.0-34.0) 12/15/21 05:13 MCHC 32.2 g/dL (32.0-36.0) 12/15/21 05:13 RDW Std Deviation 47.7 fL (36.4-46.3) H 12/15/21 05:13 RDW Coeff of Soniya 15.2 % (11.5-14.5) H 12/15/21 05:13 Plt Count 156 K/uL (130-400) 12/15/21 05:13 MPV 9.0 fL (9.4-12.3) L 12/15/21 05:13 Immature Gran % (Auto) 0.2 % 12/15/21 05:13 Neut % (Auto) 49.6 % 12/15/21 05:13 Lymph % (Auto) 27.8 % 12/15/21 05:13 [place] % (Auto) 16.5 % 12/15/21 05:13 Eos % (Auto) 5.5 % 12/15/21 05:13 Baso % (Auto) 0.4 % 12/15/21 05:13 Neut # (Auto) 2.80 K/uL (1.4-6.5) 12/15/21 05:13 Lymph # (Auto) 1.57 K/uL (1.2-3.4) 12/15/21 05:13 [place] # (Auto) 0.93 K/uL (0.24-0.82) H 12/15/21 05:13 Eos # (Auto) 0.31 K/uL (0-0.50) 12/15/21 05:13 Baso # (Auto) 0.02 K/uL (0-0.2) 12/15/21 05:13 Immature Gran # (Auto) 0.01 K/uL (0.00-0.02) 12/15/21 05:13 PT 14.0 Seconds (9.0-12.0) H 12/14/21 18:57 INR 1.3 (0.9-1.1) H 12/14/21 18:57 APTT 26.6 Seconds (21.0-31.0) 12/14/21 18:57 PTT Ratio 1.0 12/14/21 18:57 Sodium 136 mmol/L (136-145) 12/15/21 05:13 Potassium 4.1 mmol/L (3.5-5.1) 12/15/21 05:13 Chloride 104 mmol/L (98-107) 12/15/21 05:13 Carbon Dioxide 25 mmol/L (21-32) 12/15/21 05:13 Anion Gap 7 (3-11) 12/15/21 05:13 BUN 11 mg/dl (6-23) 12/15/21 05:13 Creatinine 0.58 mg/dl (0.6-1.2) L 12/15/21 05:13 Est Cr Clr Drug Dosing 80.4 ml/min 12/15/21 05:13 Est GFR ( Amer) 102.3 ml/min 12/15/21 05:13 Est GFR (Non-Af Amer) 88.3 ml/min 12/15/21 05:13 BUN/Creatinine Ratio 19.0 (10-20) 12/15/21 05:13 Glucose 85 mg/dl (70-99(Fasting)) 12/15/21 05:13 Calcium 9.0 mg/dl (8.5-10.1) 12/15/21 05:13 Magnesium 1.7 mg/dl (1.7-2.4) 12/15/21 05:13 Total Bilirubin 0.5 mg/dl (0.2-1.0) 12/14/21 18:57 AST 47 U/L (13-39) H 12/14/21 18:57 ALT 39 U/L (7-52) 12/14/21 18:57 Alkaline Phosphatase 131 U/L (34-104) H 12/14/21 18:57 Troponin I High Sens 6.0 pg/ml (0-14) 12/15/21 10:48 Total Protein 7.5 gm/dl (6.0-8.3) 12/14/21 18:57 Albumin 4.0 gm/dl (3.4-5.0) 12/14/21 18:57 Globulin 3.5 gm/dl (2.5-4.0) 12/14/21 18:57 Albumin/Globulin Ratio 1.1 (0.9-2) 12/14/21 18:57 SARS-CoV-2, RNA, NAAT NEGATIVE (NEGATIVE) 12/14/21 20:22 Impressions Chest X-Ray 12/14/21 18:29 XR chest 2V PA/lateral CLINICAL HISTORY: Chest Pain TECHNIQUE: 2 views of the chest were obtained. Comparison: Comparison is made to chest radiograph 12/09/2021 and CTA chest 12/09/2021 FINDINGS: A port catheter is seen. Left reverse shoulder arthroplasty is seen. Cardiomegaly is noted. Reticular interstitial opacities are seen. No evidence of pleural effusion or pneumothorax. IMPRESSION: Stable cardiomegaly and interstitial disease. No acute abnormality is seen. ACT 112: Negative or not required by law. Electronically signed by: Juan Skinner M.D. 12/14/2021 7:29 PM Chest CTA 12/15/21 12:01 CT angio chest PE protocol CT DOSE: 349.02 mGy.cm HISTORY: 80 years-old Female with PE. Acute chest pain with shortness of breath TECHNIQUE: Multiple CTA images of the chest were obtained after the intravenous administration of 120 ml Optiray. Coronal and sagittal MIPS were obtained from the axial data set and were submitted for review. All measurements were obtained according to NASCET criteria. A dose lowering technique was utilized adhering to the principles of ALARA. COMPARISON: CTA chest 12/09/2021 FINDINGS: CTA: Moderate cardiomegaly. Moderate coronary artery calcifications. Atherosclerosis of the thoracic aorta with patency of the imaged great vessels. Dilated pulmonary arteries suggestive of pulmonary arterial hypertension. No pulmonary emboli are identified. Thrombus of the right internal jugular vein with adjacent inflammatory stranding redemonstrated. Distal tip of the Mblbmn-d-Hhyp catheter is present within the inferior aspect of the SVC. CT CHEST: Unremarkable thyroid. Mildly enlarged paratracheal and subcarinal lymph nodes measure up to approximately 1.4 cm. Mild right hemidiaphragmatic elevation. No pneumothorax, or pleural effusion. Bilateral subpleural predominant reticulation with intermixed groundglass opacities and traction bronchiectasis again noted. No significant honeycombing. Mildly progressed groundglass opacities, notably within the left lower lobe. Calcified granuloma of the inferior segment lingula. There are no suspicious pulmonary nodules or masses identified. The central airways are patent. Contrast noted within the bilateral renal collecting systems. Mild nonspecific distal esophageal wall thickening. Multifocal hepatic metastasis are again noted measuring up to approximately 6.6 cm. Unremarkable soft tissues. Left shoulder arthroplasty. Degenerative changes of the shoulders and spine. No destructive bone lesions are identified. IMPRESSION: 1. Partially imaged thrombus of the right internal jugular vein redemonstrated, better visualized on comparison studies 2. Cardiomegaly with evidence of pulmonary arterial hypertension. No pulmonary emboli are identified 3. 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 4. Mild progressed bilateral groundglass densities may be atelectatic. 5. Unchanged mediastinal and hilar lymphadenopathy. 6. Hepatic metastasis redemonstrated. ACT 112: Negative or not required by law. The above report was generated using voice recognition software. It may contain grammatical, syntax or spelling errors. Electronically signed by: Maxim Arias M.D. 12/15/2021 2:29 PM Ordered Studies 12/15/21 12:01 CT angio chest PE protocol Urgent Hospital Course (1) Sinus tachycardia: Patient is a 80 yr female who presents with tachycardia. Asymptomatic Sinus Tachycardia: Likely secondary to underlying lung disease. -ECHO: Left ventricle wall motion is normal. EF 55 to 60%. Right ventricle is normal in size and function. Aortic valve is mildly calcified. Aortic stenosis is absent. Moderate mitral annular calcification with mild to moderate mitral regurgitation. Mild tricuspid regurgitation. Mild pulmonary hypertension present. Pulmonary artery systolic pressure is estimated to be 40 mmHg. Grade 1 diastolic dysfunction -CTA:Partially imaged thrombus of the right internal jugular vein redemonstrated, better visualized on comparison studies. Cardiomegaly with evidence of pulmonary arterial hypertension. No pulmonary emboli are identified. 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 Mild progressed bilateral groundglass densities may be atelectatic. Unchanged mediastinal and hilar lymphadenopathy. Hepatic metastasis redemonstrated. --Appreciate Cardiology Input Continue Verapamil 120 mg daily -Monitor Right Internal jugular vein thrombosis Neck CT from 12/09/21:Acute appearing occlusive deep venous thrombus of the right internal jugular vein measures up to 10 cm in length. Borderline enlarged right peritracheal with subcentimeter supraclavicular lymph nodes. Continue Eliquis 10 mg twice a day until December 19, 2021, then take 5 mg twice a day Consider following vascular surgeon as outpatient Metastatic cholangiocarcinoma ongoing chemotherapy Follow up with hem/onc as outpatient Constipation: Continue bowel regimen Chronic respiratory failure with Hypoxia Chronic oxygen dependency 2.5 L at baseline Secondary to pulmonary hypertension, interstitial lung disease Continue supplemental oxygen Chronic diastolic congestive heart failure: No signs of decompensation Continue home medications Echo as above Monitor volume status Hypertension: Continue verapamil Monitor Hyperlipidemia: On statin Anemia of Chronic disease: Thrombocytopenia No bleeding issues Monitor CBC GERD Continue PPI Mood disorder: On citalopram and buspirone. DVT Px: On Eliquis. CODE STATUS Full code Disposition Home With HH Total Time Total Time Spent Total Time Spent (In Minutes): 38 minutes Discharge Plan Discharge Items Patient Disposition: Home - Home Health Services Reason For Visit: TACHYCARDIA Discharge Diagnosis: Sinus tachycardia Right Internal jugular vein thrombosis Activity: Per Instructions section Exercise/Sports: Gradually increase as tolerated Non-emergency contact: Primary Care Provider Call non-emergency contact if: you have any medication questions, your symptoms worsen and your pain is concerning for you Follow-up/Referrals: Jessika Corea DO [Primary Care Provider] - Diet: Heart Healthy Addtl Attending Provider Instructions: Follow-up with your primary care physician on 12/16/21 as scheduled --- Continue Eliquis 10 mg twice a day until December 19, 2021 and then start taking 5 mg twice a day from December 20, 2021. Seek immediate medical attention if your symptoms reoccur or worsen Please take all medications as instructed on discharge list below. Please call if you have any questions or problems. You can reach a [facility] hospitalist on duty at [facility] 24 hours a day by calling [phone] Pending Studies at Discharge: No Stand-Alone Forms: [facility], Smoking Cessation Medications and DC Order Prescriptions: Continued buspirone 10 mg tablet 10 mg PO TID Rx Instructions: take in morning,noon and bedtime citalopram 20 mg tablet 20 mg PO QAM esomeprazole magnesium 40 mg capsule,delayed release(DR/EC) 40 mg PO QAM potassium chloride 10 mEq capsule, extended release 10 meq PO 3XWK Rx Instructions: Takes Sun, Sun, and Sunday rosuvastatin [Crestor] 10 mg tablet 10 mg PO QAM verapamil 120 mg capsule,ext rel. pellets 24 hr 120 mg PO QAM famotidine 20 mg Tablet 20 mg PO DAILY PRN (Reason: Acid Reflux) magnesium hydroxide [Milk of Magnesia] 400 mg/5 mL Suspension 15 ml PO DAILY PRN (Reason: gastric upset) polyethylene glycol 3350 [Miralax] 17 gram/dose Powder 17 g PO DAILY sennosides-docusate sodium [Senokot-S] 8.6-50 mg tablet 1 - 2 tab-cap PO BID PRN (Reason: constipation) Qty: 60 2RF docusate sodium 100 mg Tablet 100 mg PO AMHS dicyclomine 20 mg Tablet 20 mg PO QID PRN (Reason: Abdominal Pain) furosemide 20 mg Tablet 20 mg PO UD PRN (Reason: Fluid Retention) Rx Instructions: MAY TAKE 1 TIME PER WEEK ondansetron HCl 8 mg tablet 8 mg PO Q8 PRN (Reason: Nausea) hydrocodone-acetaminophen 10-325 mg tablet 1 tab PO Q8 PRN (Reason: Pain) magnesium oxide 400 mg (241.3 mg magnesium) tablet 400 mg PO QAM Premarin 0.625 mg/gram cream 1 applic vaginal 2XWK Rx Instructions: 0.5 g mon & thur only nystatin [Nyamyc] 100,000 unit/gram powder 1 applic TOPICAL TID prochlorperazine maleate 10 mg tablet 10 mg PO Q6 PRN (Reason: Nausea) acetaminophen [Tylenol Extra Strength] 500 mg Tablet 500 mg PO Q6H PRN (Reason: Pain) triamcinolone acetonide 0.1 % Cream 1 applic TOPICAL BID PRN (Reason: flare up) lidocaine-prilocaine 2.5-2.5 % cream 1 applic topical DIRECTED Rx Instructions: apply to skin over mediport & cover 1 hr prior to accessing. albuterol sulfate 90 mcg/actuation HFA aerosol inhaler 2 puff INHALATION Q6 PRN (Reason: Cough) naloxone 4 mg/actuation spray,non-aerosol 1 spray INTRANASAL DIRECTED Rx Instructions: suspected opiod od Eliquis 5 mg (74 tabs) tablets,dose pack 10 mg PO BID Rx Instructions: ordered 12/13/21 take 10 mg twice a day for 7 days followed by 5 mg twice a day thereafter Discharge Orders: Discharge Order (Routine); Ordered 12/15/21 Ordered By: Hemant Howard Admission Data Admit Date/Time: 12/14/21 21:33 Attending Provider: Hemant Howard Admit Provider: Mehul Haddad Primary Care Provider: Jessika Corea Other Providers: Mehul Haddad ; Juan Spence
--- NOTE | 2021-12-16 05:24 | Electrocardiogram Report ---
Test Reason : Blood Pressure : / mmHG Vent. Rate : 110 BPM Atrial Rate : 110 BPM P-R Int : 190 ms QRS Dur : 084 ms QT Int : 310 ms P-R-T Axes : 037 -41 080 degrees QTc Int : 419 ms Poor data quality, interpretation may be adversely affected Sinus tachycardia Left axis deviation Left ventricular hypertrophy with repolarization abnormality Poor R wave progression, consider anterior IA vs. lead placement vs. LVH Abnormal ECG When compared with ECG of 09-DEC-2021 19:02, Premature ventricular complexes are no longer Present Premature supraventricular complexes are no longer Present Inverted T waves have replaced nonspecific T wave abnormality in Lateral leads Confirmed by Sebastian Acuna ([id number]) on 12/16/2021 5:23:57 AM Referred By: Jessika Corea Confirmed By:Sebastian Acuna
--- NOTE | 2021-12-16 05:53 | Electrocardiogram Report ---
Test Reason : Blood Pressure : / mmHG Vent. Rate : 080 BPM Atrial Rate : 080 BPM P-R Int : 218 ms QRS Dur : 092 ms QT Int : 380 ms P-R-T Axes : 030 -30 044 degrees QTc Int : 438 ms Sinus rhythm with 1st degree A-V block Left axis deviation Poor R wave progression, consider anterior SD vs. lead placement vs. LVH Abnormal ECG When compared with ECG of 14-DEC-2021 19:00, Non-specific change in ST segment in Lateral leads Nonspecific T wave abnormality has replaced inverted T waves in Lateral leads Confirmed by Sebastian Acuna ([id number]) on 12/16/2021 5:52:59 AM Referred By: Jessika Corea Confirmed By:Sebastian Acuna
[2021-12-16] MEDS ORDERED: POTASSIUM CHLORIDE 10 MEQ TABCR PO SCH (09:00)
[2021-12-20] MEDS ORDERED: APIXABAN 5 MG TABLET PO SCH (09:00)
== END 2021-12-15 18:06 | disposition home health service (06) ==
LOC: 2W 18:16 → ED 18:16 → 2W 22:39
DX: R00.0 Tachycardia, unspecified; Z79.01 Long term (current) use of anticoagulants; Z99.81 Dependence on supplemental oxygen; C22.1 Intrahepatic bile duct carcinoma; I11.0 Hypertensive heart disease with heart failure; R00.2 Palpitations; I27.23 Pulmonary hypertension due to lung diseases and hypoxia; I82.C11 Acute embolism and thrombosis of right internal jugular vein; I50.32 Chronic diastolic (congestive) heart failure; K59.00 Constipation, unspecified; J96.10 Chronic respiratory failure, unspecified whether with hypoxia or hypercapnia; J84.9 Interstitial pulmonary disease, unspecified; Z79.899 Other long term (current) drug therapy